=== PATIENT | male | born 1940 | race Caucasian/White ===

== ENCOUNTER 2016-11-11 11:15 | Inpatient (IN) | payer BC, OTHER ==
[~2016-11-11] VITALS: Ht 172.7 cm; Wt 68.0 kg
[2016-11-11] MEDS ORDERED: SODIUM CHLORIDE 0.9% 1000ML 1,000 ML IV STA (11:48)
[2016-11-11 12:00] LABS: BASO % 0.5 %; BASO ABS # 0.03 K/uL (0-0.2); COMPLETE YES; HEMATOCRIT 37.6 % (42-52); IG% 0.2 %; LYMPH % 19.5 %; LYMPH ABS # 1.17 K/uL (1.2-3.4); MEAN CELL VOLUME 88.9 fL (80-100); MEAN CORPUSCULAR HGB CONC 34.8 g/dl (32-36); MEAN PLATELET VOLUME 10.7 fL (7.4-10.4); MONO % 4.7 %; NEUT % 71.1 %; PLATELET COUNT 131 K/uL (130-400); RED BLOOD COUNT 4.23 M/uL (4.7-6.1); WHITE BLOOD COUNT 5.99 K/uL (4.8-10.8)
[2016-11-11] MEDS ORDERED: NITROGLYCERIN OINT 2% 1GM PACKET EXT ONE (12:00)
[2016-11-11 12:06] LABS: PROTHROMBIN TIME (PATIENT) 11.2 SECONDS (9.0-12.0)
--- NOTE | 2016-11-11 12:15 | EMERGENCY ROOM VISIT NOTE ---
ED Visit Note First contact with patient: 11:37 This Patient was discussed with the physician miner assistant, Ron Bello PA-C. The pertinent historical and physical exam findings were confirmed. I agree with the studies ordered and with the interpretations of these studies. I agree with the disposition and care plan.
[2016-11-11 12:17] LABS: ALT/SGPT 14 U/L (12-78); BLOOD UREA NITROGEN 23 mg/dl (7-18); BUN/CREATININE RATIO 16.2 (10-20); CALCIUM 9.1 mg/dl (8.5-10.1); CARBON DIOXIDE 28 mmol/L (21-32); CHLORIDE 105 mmol/L (98-107); GLUCOSE 96 mg/dl (70-99); MAGNESIUM 2.2 mg/dl (1.8-2.4); SODIUM 141 mmol/L (136-145)
--- NOTE | 2016-11-11 12:19 | DIAGNOSTIC IMAGING REPORT ---
CHEST ONE VIEW PORTABLE CLINICAL HISTORY: cp dyspnea COMPARISON STUDY: No previous studies for comparison. FINDINGS: The bones soft tissues and hemidiaphragms are normal. The cardiomediastinal silhouette is normal. The lungs are clear. The pulmonary vasculature is normal. IMPRESSION: Negative chest. Electronically signed by: Bridger Rosas M.D. 11/11/2016 12:18 PM Dictated Date/Time: 11/11/2016 12:16 PM
[2016-11-11 12:27] LABS: ALB/GLOB RATIO 1.2 (0.9-2); ALKALINE PHOSPHATASE 68 U/L (45-117); AST/SGOT 19 U/L (15-37); CKMB/CK RATIO 1.5 (0-3.0)
[2016-11-11] MEDS ORDERED: AMLO10TA2 PO (12:28)
[2016-11-11] MEDS ORDERED: CITA40TA12 PO (12:28)
[2016-11-11] MEDS ORDERED: CHOL100010 PO (12:28)
[2016-11-11] MEDS ORDERED: TRAV0.00 OP (12:29)
[2016-11-11] MEDS ORDERED: MoRPHine SULFATE 2 MG/ML CARP IV PRN (14:15)
[2016-11-11] MEDS ORDERED: NITROGLYCERIN 0.4 MG SL PER TAB CHARGE SL PRN (14:15)
[2016-11-11] MEDS ORDERED: ALUMINUM/MAGNESIUM/SIMETH (MAALOX MAX) 30 ML UDC PO PRN (14:15)
[2016-11-11] MEDS ORDERED: ACETAMINOPHEN 325 MG TAB PO PRN (14:15)
[2016-11-11] MEDS ORDERED: MAGNESIUM HYDROXIDE SUSP 30 ML UDC PO PRN (14:15)
[2016-11-11] MEDS ORDERED: POLYETHYLENE (MIRALAX) 17 GM PACK PO PRN (14:15)
[2016-11-11] MEDS ORDERED: ZOLPIDEM TARTRATE 5 MG TAB PO PRN (14:15)
--- NOTE | 2016-11-11 14:53 | History and Physical ---
History & Physical Date & Time of Service: Nov 11, 2016 at 14:42 Chief Complaint: Chest Pains X 1 Hour Primary Care Physician: Kee Linton M.D. History of Present Illness Source: patient, family 76 years old man with PMHx of HTN. he was in his regular state of health until today 10 am. he came from post office and suddenly developed substernal chest pain referred to the left associated with SOB and diaphoresis. denies any palpitation. pain was dull aching /10. partially improved after his gave him an aspirin. he then presented to Ed and received Nitropaste. currently he is cp free. him and his just came back driving yesterday from [place]. they stayed there for a week. denies any calf tenderness or lower Ext swelling never smoked before no family Hx of heart disease Past Medical/Surgical History Chest pain R/O ACS HTN MAYNOR (creatinine of 1.4, base line is unknown) Social History Smoking Status: Never Smoker Marital Status: Housing status: lives with family Occupational Status: retired Multi-Drug Resistant Organisms History of MDRO: No Allergies Coded Allergies: No Known Allergies (Verified , 11/11/16) Home Medications Scheduled Amlodipine Besylate (Norvasc), 10 MG PO DAILY Cholecalciferol (Vitamin D), 1,000 UNITS PO DAILY Citalopram Hydrobromide (Celexa), 20 MG PO QAM Travoprost (Travatan Z), 1 DROPS OP HS Review of Systems Constitutional: No chills, No fatigue, No fever, No problem reported, No sweats , No weakness, No weight loss Eyes: No diplopia, No discharge, No eye pain, No problem reported, No redness, No worsening of vision ENT: No dental problems, No hearing loss, No nasal symptoms, No problem reported, No sore throat, No tinnitus, No trouble swallowing, No unusual epistaxis Respiratory: + shortness of breath, No cough, No sputum, No wheezing Cardiovascular: + chest pain, No edema, No palpitations Abdomen: No GI bleeding, No constipation, No diarrhea, No nausea, No pain, No problem reported, No vomiting Musculoskeletal: No calf pain, No joint pain, No muscle pain, No problem reported, No swelling Genitourinary - Male: No dysuria, No hematuria, No impotence, No lesions, No penile discharge, No problem reported, No urinary frequency, No urinary hesitancy, No urinary incontinence, No urinary retention, No urinary urgency Neurologic: No balance problems, No memory loss, No numbness/tingling, No paralysis, No problem reported, No vertigo, No weakness Psychiatric: No anhedonism, No anxiety, No depression symptoms, No insomnia, No problem reported, No substance abuse Endocrine: No excessive thirst, No excessive urination, No fatigue, No problem reported Hematologic / Lymphatic: No abnormal bleeding/bruising, No clotting problems, No night sweats, No problem reported, No swollen lymph nodes Allergic / Immunologic: No environmental allergies, No food allergies, No frequent infections, No hives, No pet sensitivities, No poor healing, No problem reported, No prolonged convalescence, No seasonal allergies Physical Exam Vital Signs Date Time Temp Pulse Resp B/P Pulse Ox O2 Delivery O2 Flow Rate FiO2 11/11/16 14:30 59 18 136/79 95 Room Air 11/11/16 13:08 59 18 144/81 95 Room Air 11/11/16 12:28 59 18 152/81 99 Room Air 11/11/16 12:01 58 20 155/79 99 Room Air 11/11/16 11:49 58 20 169/97 100 Room Air 11/11/16 11:49 100 Room Air 11/11/16 11:21 36.5 78 20 156/74 100 Room Air General Appearance: no apparent distress Head: normocephalic, atraumatic Eyes: normal inspection, EOMI ENT: normal ENT inspection, hearing grossly normal Neck: supple Respiratory/Chest: chest non-tender, lungs clear, normal breath sounds, no respiratory distress, no accessory muscle use Cardiovascular: regular rate, rhythm, no edema, no gallop, no murmur Abdomen/GI: normal bowel sounds, non tender, soft, no organomegaly, no pulsatile mass, normal rectal exam Back: normal inspection, no CVA tenderness, no muscle spasm, normal range of motion Extremities/Musculoskelatal: normal inspection, no calf tenderness, normal capillary refill, no pedal edema 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, no motor/sensory deficits, alert, normal mood/affect, normal reflexes, oriented x 3 Skin: normal color, warm/dry, no rash Diagnostics Laboratory Results Results Past 24 Hours Test 11/11/16 11:45 Range/Units White Blood Count 5.99 4.8-10.8 K/uL Red Blood Count 4.23 4.7-6.1 M/uL Hemoglobin 13.1 14.0-18.0 g/dL Hematocrit 37.6 42-52 % Mean Corpuscular Volume 88.9 80-100 fL Mean Corpuscular Hemoglobin 31.0 25-34 pg Mean Corpuscular Hemoglobin Concent 34.8 32-36 g/dl Platelet Count 131 130-400 K/uL Mean Platelet Volume 10.7 7.4-10.4 fL Neutrophils (%) (Auto) 71.1 % Lymphocytes (%) (Auto) 19.5 % Monocytes (%) (Auto) 4.7 % Eosinophils (%) (Auto) 4.0 % Basophils (%) (Auto) 0.5 % Neutrophils # (Auto) 4.26 1.4-6.5 K/uL Lymphocytes # (Auto) 1.17 1.2-3.4 K/uL Monocytes # (Auto) 0.28 0.11-0.59 K/uL Eosinophils # (Auto) 0.24 0-0.5 K/uL Basophils # (Auto) 0.03 0-0.2 K/uL RDW Standard Deviation 41.4 36.4-46.3 fL RDW Coefficient of Variation 12.8 11.5-14.5 % Immature Granulocyte % (Auto) 0.2 % Immature Granulocyte # (Auto) 0.01 0.00-0.02 K/uL Prothrombin Time 11.2 9.0-12.0 SECONDS Prothromb Time International Ratio 1.0 0.9-1.1 Activated Partial Thromboplast Time 26.4 21.0-31.0 SECONDS Partial Thromboplastin Ratio 1.0 D-Dimer 420 0-500 ug/L FEU Sodium Level 141 136-145 mmol/L Potassium Level 4.0 3.5-5.1 mmol/L Chloride Level 105 98-107 mmol/L Carbon Dioxide Level 28 21-32 mmol/L Anion Gap 8.0 3-11 mmol/L Blood Urea Nitrogen 23 7-18 mg/dl Creatinine 1.40 0.60-1.40 mg/dl Est Creatinine Clear Calc Drug Dose 44.7 ml/min Estimated GFR () 57.0 Estimated GFR (Non- 49.1 BUN/Creatinine Ratio 16.2 10-20 Random Glucose 96 70-99 mg/dl Calcium Level 9.1 8.5-10.1 mg/dl Magnesium Level 2.2 1.8-2.4 mg/dl Total Bilirubin 0.5 0.2-1 mg/dl Aspartate Amino Transf (AST/SGOT) 19 15-37 U/L Alanine Aminotransferase (ALT/SGPT) 14 12-78 U/L Alkaline Phosphatase 68 45-117 U/L Total Creatine Kinase 155 39-308 U/L Creatine Kinase MB 2.3 0.5-3.6 ng/ml Creatine Kinase MB Ratio 1.5 0-3.0 Troponin I < 0.015 0-0.045 ng/ml Total Protein 7.1 6.4-8.2 gm/dl Albumin 3.9 3.4-5.0 gm/dl Globulin 3.2 2.5-4.0 gm/dl Albumin/Globulin Ratio 1.2 0.9-2 Lipase 293 73-393 U/L Thyroid Stimulating Hormone (TSH) 1.200 0.300-4.500 uIu/ml Impression Assessment and Plan 76 years old man with no significant Pmhx except for htn, presented today with acute onset cp and sob, he returned driving from [place] yesterday chest pain -serial cardiac enz -aspirin/NTG -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 Y/N: Yes Risk Level: Moderate
[2016-11-11] MEDS ORDERED: IV FLUIDS COMPLETED PRN (15:15)
[2016-11-11 15:57] VITALS: BP 133/71; PULSE 53; TEMP 36.3; O2SAT 96; Ht 172.7 cm; Wt 68.0 kg
[2016-11-11 16:00] VITALS: O2SAT 96
[2016-11-11] MEDS: SODIUM CHLORIDE 0.9% 1000ML 1,000 ML IV SCH (17:45)
[2016-11-11] MEDS: NITROGLYCERIN OINT 2% 1GM PACKET EXT SCH (18:46)
[2016-11-11 21:39] LABS: URINE APPEARANCE CLEAR (CLEAR); URINE BILIRUBIN NEG (NEG); URINE COLOR YELLOW; URINE NITRITE NEG (NEG); URINE SPECIFIC GRAVITY 1.017 (1.000-1.030); UROBILINOGEN NEG (NEG); ZZUR CULT IF INDIC CLEAN CATCH NO
[2016-11-11 21:43] LABS: MANUAL MICROSCOPIC REQUIRED? NO; REVIEW REQ? NO
[2016-11-11] MEDS ORDERED: HEPARIN SOD 5000 UNIT/0.5 ML CARP SQ SCH (22:00)
[2016-11-11] MEDS ORDERED: HEPARIN IV BOLUS 5,000 UNIT in SYRINGE 0 ML IV ONE (23:45)
[2016-11-11 23:46] VITALS: BP 114/65; PULSE 57; TEMP 36.9; O2SAT 96
[2016-11-12] VITALS (8 sets, daily range): BP systolic 123–139; BP diastolic 58–88; PULSE 52–66; TEMP 36.4–36.9; O2SAT 96–97
[2016-11-12] MEDS: NITROGLYCERIN OINT 2% 1GM PACKET EXT SCH ×3 (00:01→12:13)
[2016-11-12] MEDS: HEPARIN 25,000 UNIT/500ML D5W 500 ML IV PRN ×2 (00:01→08:48)
[2016-11-12] MEDS: SODIUM CHLORIDE 0.9% 1000ML 1,000 ML IV SCH ×3 (05:48→19:48)
[2016-11-12 07:16] LABS: ESTIMATED AVERAGE GLUCOSE 100 mg/dl; HA1C FLAG Normal (Normal)
[2016-11-12 07:29] LABS: PARTIAL THROMBOPLASTIN RATIO 3.7
[2016-11-12 07:43] LABS: CHOLESTEROL/HDL RATIO 2.4
[2016-11-12] MEDS: ASPIRIN 325 MG ECTAB PO SCH (08:41)
--- NOTE | 2016-11-12 09:49 | Cardiology Consultation ---
Cardiology Consultation Date of Consultation: Nov 12, 2016. Requesting Physician: Dr. Adler Attending Physician: Dr. Ramirez Reason for Consultation: Chest pain Pt evaluation today including: conversation w/ patient, conversation w/ family , physical exam, chart review, lab review, review of studies, review of inpatient medication list, conversation w/ attending History of Present Illness Mr. Alexander is a 76-year-old male with a history of hypertension who presented to the ED yesterday with complaints of chest pain. He reports that [place], and he got back to his house and walked up the 13 steps to get into his house. He then developed a dull, left-sided chest discomfort which radiated into his upper back. He had associated shortness of breath with the discomfort but no nausea, vomiting, palpitations, or diaphoresis. His gave him and aspirin and he laid down on the couch. His pain subsided about 10-20% with this, but continued, so they decided to go to the Emergency Department. He was given nitro paste there, and his pain completely resolved within 1-2 hours of being in the ED. He reports that it lasted about 3-4 hours altogether. He has not had a recurrence of the chest pain since then. He reports that prior to yesterday, he was very active and healthy. He and his just drove back from [place] where they vacationed for a week. He walks a couple of miles daily and frequently does stairs with no limiting cardiopulmonary symptoms. He denies orthopnea, PND, edema, lightheadedness, dizziness, syncope, presyncope, abnormal bleeding, cerebrovascular symptoms, coughing, wheezing, or GI/ symptoms. Review of Systems: As noted in HPI. All other 10 point ROS otherwise negative. Family History Mother at the age 56 from "presumed heart problems." Social History Smoking Status: Never Smoker History of Alcohol Use: Yes (OCCASIONAL) He is . He and his have a son, a daughter, and 4 grandsons. He is retired from [employer]. He denies smoking history or tobacco use. He notes occasional alcohol use. He denies any drug use. Allergies Coded Allergies: No Known Allergies (Verified , 11/11/16) Medications Current Inpatient Medications Medications (Trade) Dose Ordered Sig/Eri Route Start Time Stop Time Status Last Admin Dose Admin Sodium Chloride (Nss 1000ml) 1,000 ml @ 80 mls/hr [id number] IV 11/11/16 17:15 12/11/16 17:14 11/12/16 05:48 80 MLS/HR Acetaminophen (Tylenol Tab) 650 mg Q4H PRN PO 11/11/16 14:15 12/11/16 14:14 Al Hydrox/Mg Hydrox/Simethicone (Maalox Max Susp) 15 ml Q4H PRN PO 11/11/16 14:15 12/11/16 14:14 Magnesium Hydroxide (Milk Of Magnesia Susp) 30 ml Q12H PRN PO 11/11/16 14:15 12/11/16 14:14 Zolpidem Tartrate (Ambien Tab) 5 mg HSZ PRN PO 11/11/16 14:15 12/11/16 14:14 Nitroglycerin (Nitrostat Tab) 0.4 mg UD PRN SL 11/11/16 14:15 12/11/16 14:14 Nitroglycerin (Nitroglycerin 2% Oint) 1 inch Q6@0000,0600,1200,1800 EXT 11/11/16 18:00 12/11/16 17:59 11/12/16 05:48 1 INCH Morphine Sulfate (MoRPHine SULFATE INJ) 2 mg Q30M PRN IV 11/11/16 14:15 11/25/16 14:14 Aspirin (Ecotrin Tab) 325 mg QAM PO 11/12/16 09:00 12/12/16 08:59 11/12/16 08:41 325 MG Polyethylene (Miralax Powder Packet) 17 gm DAILY PRN PO 11/11/16 14:15 12/11/16 14:14 Miscellaneous 1 ea 1 ea PRN PRN N/A 11/11/16 15:15 11/11/17 15:14 Heparin Sodium/ Dextrose (Heparin 25,000 Unit/500ml D5W) 500 ml @ 22 mls/hr [id number] PRN IV 11/11/16 23:45 12/11/16 23:44 11/12/16 08:48 22 MLS/HR Physical Exam Vital Signs Past 12 Hours Date Time Temp Pulse Resp B/P Pulse Ox O2 Delivery O2 Flow Rate FiO2 11/12/16 07:55 Room Air 11/12/16 07:32 36.7 54 16 123/88 96 Room Air 11/12/16 05:46 36.4 54 16 128/58 96 Room Air 11/12/16 05:18 Room Air 11/12/16 00:00 Room Air 11/11/16 23:46 36.9 57 18 114/65 96 Room Air Constitutional: Alert, oriented, in no acute distress HEENT: Head is atraumatic and normocephalic. EOMs intact. Sclera anicteric. Face is symmetric. No perioral cyanosis. Mucous membranes moist. Neck: Supple, no JVD, no carotid bruits Pulmonary: Normal respiratory effort, clear to auscultation bilaterally Cardiac: Regular rate and rhythm, normal S1 and S2, no gallops, no rubs, no murmurs Extremities: No clubbing, cyanosis, or edema. Pulses 2+ and symmetric Abdomen: Normal bowel sounds, soft, non-tender, no abdominal mass palpated Skin: Normal skin color, turgor, and pigmentation, no rash, no skin lesions Neurological: Oriented to person, place, and time Data Laboratory Results: Last 24 Hours Test 11/11/16 11:45 11/11/16 20:27 11/11/16 21:25 11/12/16 03:13 White Blood Count 5.99 K/uL Red Blood Count 4.23 M/uL Hemoglobin 13.1 g/dL Hematocrit 37.6 % Mean Corpuscular Volume 88.9 fL Mean Corpuscular Hemoglobin 31.0 pg Mean Corpuscular Hemoglobin Concent 34.8 g/dl Platelet Count 131 K/uL Mean Platelet Volume 10.7 fL Neutrophils (%) (Auto) 71.1 % Lymphocytes (%) (Auto) 19.5 % Monocytes (%) (Auto) 4.7 % Eosinophils (%) (Auto) 4.0 % Basophils (%) (Auto) 0.5 % Neutrophils # (Auto) 4.26 K/uL Lymphocytes # (Auto) 1.17 K/uL Monocytes # (Auto) 0.28 K/uL Eosinophils # (Auto) 0.24 K/uL Basophils # (Auto) 0.03 K/uL RDW Standard Deviation 41.4 fL RDW Coefficient of Variation 12.8 % Immature Granulocyte % (Auto) 0.2 % Immature Granulocyte # (Auto) 0.01 K/uL Prothrombin Time 11.2 SECONDS Prothromb Time International Ratio 1.0 Activated Partial Thromboplast Time 26.4 SECONDS Partial Thromboplastin Ratio 1.0 D-Dimer 420 ug/L FEU Sodium Level 141 mmol/L Potassium Level 4.0 mmol/L Chloride Level 105 mmol/L Carbon Dioxide Level 28 mmol/L Anion Gap 8.0 mmol/L Blood Urea Nitrogen 23 mg/dl Creatinine 1.40 mg/dl Est Creatinine Clear Calc Drug Dose 44.7 ml/min Estimated GFR () 57.0 Estimated GFR (Non- 49.1 BUN/Creatinine Ratio 16.2 Random Glucose 96 mg/dl Calcium Level 9.1 mg/dl Magnesium Level 2.2 mg/dl Total Bilirubin 0.5 mg/dl Aspartate Amino Transf (AST/SGOT) 19 U/L Alanine Aminotransferase (ALT/SGPT) 14 U/L Alkaline Phosphatase 68 U/L Total Creatine Kinase 155 U/L 143 U/L 149 U/L Creatine Kinase MB 2.3 ng/ml Creatine Kinase MB Ratio 1.5 Troponin I < 0.015 ng/ml 0.509 ng/ml 1.450 ng/ml Total Protein 7.1 gm/dl Albumin 3.9 gm/dl Globulin 3.2 gm/dl Albumin/Globulin Ratio 1.2 Lipase 293 U/L Thyroid Stimulating Hormone (TSH) 1.200 uIu/ml Urine Color YELLOW Urine Appearance CLEAR Urine pH 7.0 Urine Specific [place] 1.017 Urine Protein NEG Urine Glucose (UA) NEG Urine Ketones NEG Urine Occult Blood NEG Urine Nitrite NEG Urine Bilirubin NEG Urine Urobilinogen NEG Urine Leukocyte Esterase NEG Test 11/12/16 06:55 11/12/16 08:10 Activated Partial Thromboplast Time 96.6 SECONDS Partial Thromboplastin Ratio 3.7 Estimated Average Glucose 100 mg/dl Hemoglobin A1c 5.1 % Triglycerides Level 44 mg/dl Cholesterol Level 166 mg/dl HDL Cholesterol 70 mg/dl LDL Cholesterol, Calculated 87 mg/dl VLDL Cholesterol, Calculated 9 mg/dl Cholesterol/HDL Ratio 2.4 Total Creatine Kinase 154 U/L Troponin I 1.290 ng/ml CXR: Negative chest. Initial ECG with sinus bradycardia at 56 bpm. Repeat ECG with sinus bradycardia at 58 bpm with premature atrial complexes. Nonspecific ST abnormality. Telemetry reviewed: Sinus bradycardia in 50's. PAC's. Assessment & Plan Mr. Alexander is a 76-year-old male with no known cardiac history but with a history of hypertension who presented to the ED yesterday with complaints of chest pain. His initial Troponin was undetectable, however, it has russell to a peak of 1.450. ECG shows nonspecific ST abnormality. He is currently chest pain free. He has already been started on a Heparin drip and has been given aspirin and nitro. Would also recommend a beta rani, however, he has been bradycardic with rates in the 50's throughout admission, therefore would not initiate at this time. Given his symptoms and Troponin elevation, a cardiac catheterization is recommended for further evaluation of his coronary anatomy. This will likely be done later today by Dr. Ramirez who will also be in to see the patient. CAD risk factors include hypertension. He denies history of diabetes mellitus or dyslipidemia. His mother in her 50s suddenly. He thinks she may have had rheumatic valvular heart disease. He does not smoke cigarettes. Thank you for allowing us to see this patient in consultation. The patient was seen and examined by me in conjunction with . no prior history of coronary artery disease. Recently no anginal or anginal type symptoms until sudden onset of dull chest discomfort yesterday. Total duration approximately 3 hours. It then resolved in the emergency department. No chest discomfort since admission. He has not noted any recent decrease in excess exercise tolerance or stamina. No dyspnea with his normal activities. No symptoms of arrhythmia. No symptoms of congestive heart failure. No cerebrovascular or peripheral vascular complaints. No bleeding complaints. Exam reveals him to be in no distress. Neck: No jugular venous distention. Carotids 2/2 bilaterally. Normal upstroke. No bruits. Mouth: Uvula visible. Full dentures. Lungs: Normal respiratory effort. Clear. No rales or wheezes. Heart: Regular rate and rhythm. No murmur, gallop, rub. Abdomen: Soft. Nontender. No palpable masses organomegaly. Extremities: No pretibial edema. No cyanosis or clubbing. Pulses: Distal pulses all extremities strongly palpable. Neurologic: Alert and oriented x3. Motor grossly intact. Psychiatric: Affect is normal. the electrocardiogram revealed no ST or T-wave abnormalities diagnostic of myocardial ischemia or injury. Troponin I elevated as documented above. The patient has sustained a non ST elevation myocardial infarction. cardiac catheterization is indicated to assess for presence of significant underlying coronary artery disease. The procedure, risks, benefits, and alternatives of cardiac catheterization and coronary intervention were extensively discussed with the patient and his . He agrees to have the procedure performed. We will utilize a right radial arterial access. Addendum: The cardiac catheterization was performed via a 6 Arabic sheath in the right radial artery. This revealed a right dominant circulation. The left main had minor irregularities. The proximal LAD had a 30 percent stenosis. Mid LAD with 10-15 percent stenosis. The proximal LAD gave rise to a it is very small caliber bifurcating diagonal artery. The superior branch following the bifurcation had a 90 percent stenosis. The diameter of this vessel on digital angiography was 1 point 5 millimeters. The left circumflex had mild atherosclerotic disease. The right coronary artery was a large caliber vessel. 30 percent proximal and mid RCA stenoses. 30-40 percent distal RCA stenosis. Long small caliber posterior descending artery and extremely long medium large caliber posterior lateral artery. The proximal posterior lateral had a 30 percent stenosis. Left ventricular angiography performed from the 30 degree right anterior oblique projection with a hand injection of contrast dye revealed all LV segments to contract normally. LV ejection fraction approximately 55 percent. Recommendations and plan: 1. Medical therapy for his coronary artery disease at this time. Will start him on statin therapy for acute beneficial effects on endothelial function .continue aspirin. Start clopidogrel 75 milligrams daily for additional antiplatelet effect. Low-dose beta-rani with metoprolol succinate ER 12.5 milligrams daily. This is to help control his exercise heart rate. Discontinue intravenous heparin at this time. Discontinue topical nitrate. Exercise stress test prior to discharge to assess for any exercise-induced arrhythmia is. Also assess for any anginal symptoms. If the patient had anginal symptoms refractory to medical therapy would then consider intervention to the diagonal. However, the diagonal is a very small caliber. It is of smaller diameter than the smallest diameter stent. It is the diameter of the smallest PTCA balloon. As his pain yesterday lasted approximately 3 hours he may have completed the infarct in the distribution of the small diagonal branch. The stress test will be in the form of a stress echocardiogram. The resting echo will further assess left ventricular wall motion. Thank you for asking us to see this patient in Cardiology consultation.
[2016-11-12] MEDS ORDERED: MIDAZOLAM HCL 1 MG/ML 2ML VIAL ONE (12:47)
[2016-11-12] MEDS ORDERED: FENTANYL CITRATE INJ 50 MCG/1 ML 2 ML VIAL ONE (12:47)
[2016-11-12] MEDS ORDERED: HEPARIN SOD (PORCINE) 1000 UNIT/ML 10 ML VIAL ONE (12:47)
[2016-11-12] MEDS ORDERED: NiCARDipine HCL INJ 2.5 MG/ML 10 ML AMP ONE (12:47)
[2016-11-12] MEDS ORDERED: NITROGLYCERIN/D5W 100MCG/ML 20ML SYR ONE (12:48)
--- NOTE | 2016-11-12 12:50 | Procedure Note ---
Pre-Mod Sedation Assessment General Date of Moderate Sedation: Nov 12, 2016. Vital Signs: Vital Signs Past 12 Hours Date Time Temp Pulse Resp B/P Pulse Ox O2 Delivery O2 Flow Rate FiO2 11/12/16 12:05 Room Air 11/12/16 11:28 36.6 55 16 139/71 97 Room Air 11/12/16 07:55 Room Air 11/12/16 07:32 36.7 54 16 123/88 96 Room Air 11/12/16 05:46 36.4 54 16 128/58 96 Room Air 11/12/16 05:18 Room Air Review Cardiovascular: regular rate, rhythm, no edema, no gallop, no JVD, no murmur, normal peripheral pulses Abdomen: normal bowel sounds, non tender, soft, no organomegaly Lungs: lungs clear Pre-Sedation Airway Assessment Oral Cavity: Dentures Able to Visualize Vocal Cords: No Short Thick Neck: No Hx of Sleep Apnea: No Smoking Status: Never Smoker Mallampati Classification: Class III ASA Classification: Class II Procedure Planning Contraindications-for Mod Sed: None Yes Notes The planned sedation has been discussed with the patient and consent obtained. I have identified the patient, determined the appropriateness of sedation and have assessed the patient immediately prior to the procedure. All medicine(s) and interventions are by my order.
[2016-11-12] MEDS ORDERED: SODIUM CHLORIDE 0.9% 1000ML 250 ML IV PRN (13:58)
[2016-11-12] MEDS ORDERED: ATROPINE SULFATE 0.1 MG/ML 5ML SYR IV PRN (14:00)
[2016-11-12] MEDS ORDERED: ONDANSETRON INJ 2 MG/ML 2 ML VIAL IV PRN (14:00)
[2016-11-12] MEDS ORDERED: ACETAMINOPHEN 325 MG TAB PO PRN (14:00)
--- NOTE | 2016-11-12 14:05 | Procedure Note ---
Post-Mod Sedation Assessment General Date of Moderate Sedation Nov 12, 2016. Vital Signs: Vital Signs Past 12 Hours Date Time Temp Pulse Resp B/P Pulse Ox O2 Delivery O2 Flow Rate FiO2 11/12/16 14:00 65 18 113/60 97 Room Air 11/12/16 13:45 56 18 106/73 96 Room Air 11/12/16 13:41 56 18 115/70 96 Room Air 11/12/16 13:36 57 18 106/66 99 Nasal Cannula 3 11/12/16 12:05 Room Air 11/12/16 11:28 36.6 55 16 139/71 97 Room Air 11/12/16 07:55 Room Air 11/12/16 07:32 36.7 54 16 123/88 96 Room Air 11/12/16 05:46 36.4 54 16 128/58 96 Room Air 11/12/16 05:18 Room Air Review - Discharge Criteria Vital Signs Stable: Yes Alert/Oriented/Conversant: Yes Returned to Baseline Mental St: Yes Nausea Absent/Minimal: Yes Pain/Discomfort/Absent/Minimal: Yes Normal/Baseline Respirations: Yes Active Bleeding?: No Pt Received D/C Instructions: N/A Prescriptions Given: None Specific Proced. D/C Criteria Distal Pulses Present (Cardiac: Yes Groin site assessed-Card Cath: N/A Voided Prior To Discharge: N/A Discharged Patients Adult Escort/Transportation: N/A
[2016-11-12] MEDS ORDERED: CLOPIDOGREL BISULFATE 75 MG TAB PO ONE (14:30)
[2016-11-12] MEDS ORDERED: ATORVASTATIN 40 MG TAB PO ONE (14:30)
[2016-11-12] MEDS ORDERED: METOPROLOL SUCC 50MG EXT REL TAB PO ONE (14:30)
--- NOTE | 2016-11-12 15:24 | Cardiac Catheterization ---
Procedure Note Procedure Date Nov 12, 2016. Pre-Procedure Diagnosis Non STEMI AUC Score 8 Post-Procedure Diagnosis Severe CAD (90% proximal stenosis of a branch of a very small caliber bifurcating 1st LAD diagonal artery), Normal LV Systolic Function, Normal Intracardiac Pressures Procedure(s) Performed Coronary Angiography, Left Heart Cath, LV Angiography Gore Stitcher Dr. Ramirez Manager Storage(s) IGNACIO Reddy Estimated Blood Loss 15 ml Medication(s) Fentanyl, Heparin, Nicardipine (Intra-arterial), Versed, Lidocaine 1% Summary of Findings Clinical indications: Non ST elevation myocardial infarction, no evidence of ischemia or infarction on electrocardiogram. CAD risk factors include hypertension. No history of diabetes mellitus, dyslipidemia, or cigarette smoking. No definite family history of premature coronary artery disease. His mother in her 50s. She had rheumatic valvular heart disease. Catheterization site: 6 Austrian slender glide sheath right radial artery. Catheters: 6 Austrian brachial 3.5 and 5 Austrian pigtail catheters. Hemostasis: Terumo TR band. Complications: None. Findings: Fluoroscopy revealed coronary calcifications. The coronary circulation was right dominant. The left main coronary artery was a large caliber vessel giving rise to large caliber left anterior descending and left circumflex coronary arteries. Proximal and distal 10-20 percent stenoses. The proximal LAD had a 30 percent stenosis. The proximal LAD gave rise to a very small caliber bifurcating 1st diagonal artery. The superior branch after the bifurcation had a 90 percent stenosis. The diameter of the superior branch of the diagonal measured by digital angiography was 1.5 millimeters. CATRINA 3 flow. The mid LAD gave rise to small caliber 2nd and 3rd diagonal arteries. Each of these diagonals had ostial 10 percent stenoses. The mid and distal LAD had diffuse mild atherosclerotic disease with 0-10 percent luminal diameter narrowing. The proximal and mid left circumflex coronary artery were normal. The mid circumflex gave rise to a long small caliber 1st marginal artery which had no obstructive disease. The distal left circumflex had 30 percent stenosis. The distal circumflex then gave rise to very small caliber 1st and 2nd posterolateral branches. The right coronary artery was a very large caliber vessel which had a 30 percent proximal stenosis. The mid segment had sequential 30 percent stenoses. The distal RCA prior to the origin of the PDA had a 30-40 percent stenosis. The PDA was a long small caliber vessel which had a 10 percent mid segment stenosis. Following the origin of the PDA distal RCA had 30 percent stenosis. The distal RCA then gave rise to long small caliber 1st and 2nd posterolateral arteries and then to a very long medium caliber 3rd posterolateral artery. These vessels had no obstructive disease. Left ventricular angiography performed from the 30 degree right anterior oblique projection revealed all LV segments to contract normally. The calculated left ventricular ejection fraction was 63 percent. No mitral regurgitation. Plan: The patient's chest pain yesterday lasted approximately 3 hours. It then resolved. Since then he has had no further anginal type symptoms. The infarct related vessel is likely the first LAD diagonal. It is likely that he has completed the infarct in the distribution of this vessel.He remains without any chest pain since admission. He is hemodynamically stable. No arrhythmias. Because of this and because of the very small caliber of the diagonal medical therapy for his coronary artery disease is indicated. Continue aspirin. Will start statin, low-dose metoprolol, and clopidogrel. If he has anginal symptoms despite medical therapy could consider intervention to diagonal. However, the diameter of the diagonal is less than the diameter of the smallest diameter stent available. Thus, would recommend medical management of the LAD diagonal stenosis. Will perform a stress test prior to discharge to assess for any anginal symptoms and to assess for hemodynamic heart rhythm stability with exercise. Hemodynamics Rest Ao: 103/48/72 mm Hg Final Ao: 110/47/73 mm Hg LV: 106/11 mm Hg Recommendations Medical therapy and/or Counseling Specimens None Radiation Exposure (mGy) 872 Contrast (mls) 75 ml Visipaque Fluids (cc crystalloids) 39 Drains none Anesthesia Intravenous Versed and fentanyl. Lidocaine 1 % for local anesthesia. Procedural Complication(s) None Disposition PCU ACC Data Cardiac Status Clinical evaluation leading to the procedure CAD Presntation: Non STEMI Anginal Classification: CCS IV Heart Failure: No Cardiogenic Shock w/in 24Hrs: No Cardiac Arrest w/in 24Hrs: No Imaging studies past 6 months: No Stress studies past 6 months: No Standard Exercise Stress Test: No Stress Echocardiogram: No Stress Testing w/SPECT MPI: No Cardiac CTA: No Coronary Anatomy Dominant: Right Left Main (% Stenosis): Proximal (10-20), Distal (10-20) LAD (% Stenosis): Proximal, Mid (diffuse 0-10), Distal (0-10) D1 (% Stenosis): Mid (90) D2 (% Stenosis): Ostial (10) D3 (% Stenosis): Ostial (10) Circumflex (% Stenosis): Distal (30) OM1 (% Stenosis): Normal L PL1 (% Stenosis): Normal L PL2 (% Stenosis): Normal RCA (% Stenosis): Proximal (30), Mid (30,30), Distal (30-40,30) R PDA (% Stenosis): Mid (10) R PL1 (% Stenosis): Normal R PL2 (% Stenosis): Normal Left Ventricular Angiography EF (%): 63 Wall Motion: Inferior (Normal), Apical (Normal), Anterior (Normal) Mitral Regurgitation: None Diagnostic Physician's Name: Delbert Ramirez M.D. Status: Elective Closure Device Percutaneous Entry Location: Radial Closure Device: Radial Band Recommendations: Medical therapy and/or Counseling
--- NOTE | 2016-11-12 19:24 | Progress Note ---
Subjective Date of Service: Nov 12, 2016. Subjective Pt evaluation today including: conversation w/ patient, conversation w/ family , physical exam, chart review, lab review Review of Systems Constitutional: No chills, No fatigue, No fever, No problem reported, No see HPI, No sweats, No weakness, No weight loss Eyes: No diplopia, No discharge, No eye pain, No problem reported, No redness, No see HPI, No worsening of vision ENT: No dental problems, No hearing loss, No nasal symptoms, No problem reported, No see HPI, No sore throat, No tinnitus, No trouble swallowing, No unusual epistaxis Respiratory: No cough, No dyspnea at rest, No dyspnea on exertion, No hemoptysis, No problem reported, No see HPI, No shortness of breath, No sputum, No wheezing Cardiac: No PND, No chest pain, No claudication, No edema, No orthopnea, No palpitations, No problem reported, No see HPI Abdomen: No GI bleeding, No constipation, No diarrhea, No nausea, No pain, No problem reported, No see HPI, No vomiting Musculoskeletal: No calf pain, No joint pain, No muscle pain, No problem reported, No see HPI, No swelling Neurologic: No balance problems, No memory loss, No numbness/tingling, No paralysis, No problem reported, No see HPI, No vertigo, No weakness Psychiatric: No anhedonism, No anxiety, No depression symptoms, No insomnia, No problem reported, No see HPI, No substance abuse Heme: No abnormal bleeding/bruising, No clotting problems, No night sweats, No problem reported, No see HPI, No swollen lymph nodes Endo: No excessive thirst, No excessive urination, No fatigue, No problem reported, No see HPI Skin: No bleeding, No color change, No itch, No new/changing skin lesions, No problem reported, No rash, No see HPI Medications Current Inpatient Medications Medications (Trade) Dose Ordered Sig/Eri Route Start Time Stop Time Status Last Admin Dose Admin Sodium Chloride (Nss 1000ml) 1,000 ml @ 125 mls/hr Q8H IV 11/11/16 17:15 12/11/16 17:14 11/12/16 16:35 125 MLS/HR Al Hydrox/Mg Hydrox/Simethicone (Maalox Max Susp) 15 ml Q4H PRN PO 11/11/16 14:15 12/11/16 14:14 Magnesium Hydroxide (Milk Of Magnesia Susp) 30 ml Q12H PRN PO 11/11/16 14:15 12/11/16 14:14 Zolpidem Tartrate (Ambien Tab) 5 mg HSZ PRN PO 11/11/16 14:15 12/11/16 14:14 Nitroglycerin (Nitrostat Tab) 0.4 mg UD PRN SL 11/11/16 14:15 12/11/16 14:14 Morphine Sulfate (MoRPHine SULFATE INJ) 2 mg Q30M PRN IV 11/11/16 14:15 11/25/16 14:14 Aspirin (Ecotrin Tab) 325 mg QAM PO 11/12/16 09:00 12/12/16 08:59 11/12/16 08:41 325 MG Polyethylene (Miralax Powder Packet) 17 gm DAILY PRN PO 11/11/16 14:15 12/11/16 14:14 Miscellaneous (Iv Fluids Completed) 1 ea PRN PRN N/A 11/11/16 15:15 11/11/17 15:14 Atorvastatin Calcium (Lipitor Tab) 40 mg QAM PO 11/13/16 09:00 12/13/16 08:59 Clopidogrel Bisulfate (plAVix TAB) 75 mg QAM PO 11/13/16 09:00 12/13/16 08:59 Metoprolol Succinate (Toprol Xl Tab) 12.5 mg QAM PO 11/13/16 09:00 12/13/16 08:59 Acetaminophen 650 mg 650 mg Q4H PRN PO 11/12/16 14:00 12/12/16 13:59 Sodium Chloride (Nss 1000ml) 250 ml @ 999 mls/hr Q16M PRN IV 11/12/16 13:58 12/12/16 13:57 Atropine Sulfate (Atropine Sulfate 0.1MG/Ml Inj) 0.6 mg PRN PRN IV 11/12/16 14:00 12/12/16 13:59 Ondansetron HCl (Zofran Inj) 4 mg Q6H PRN IV 11/12/16 14:00 12/12/16 13:59 Objective Vital Signs Date Time Temp Pulse Resp B/P Pulse Ox O2 Delivery O2 Flow Rate FiO2 2/15/17 17:00 97 Room Air 11/12/16 16:51 66 133/69 11/12/16 16:30 52 131/71 11/12/16 16:15 36.9 52 18 128/65 97 Room Air 11/12/16 15:45 60 18 114/60 96 Room Air 11/12/16 15:30 60 18 118/60 96 Room Air 11/12/16 15:15 58 18 114/64 96 Room Air 11/12/16 15:00 62 18 116/64 97 Room Air 11/12/16 14:45 64 18 118/72 97 Room Air 11/12/16 14:30 67 18 116/68 97 Room Air 11/12/16 14:15 68 18 118/55 97 Room Air 11/12/16 14:00 65 18 113/60 97 Room Air 11/12/16 13:45 56 18 106/73 96 Room Air 11/12/16 13:41 56 18 115/70 96 Room Air 11/12/16 13:36 57 18 106/66 99 Nasal Cannula 3 11/12/16 12:05 Room Air 11/12/16 11:28 36.6 55 16 139/71 97 Room Air 11/12/16 07:55 Room Air 11/12/16 07:32 36.7 54 16 123/88 96 Room Air 11/12/16 05:46 36.4 54 16 128/58 96 Room Air 11/12/16 05:18 Room Air 11/12/16 00:00 Room Air 11/11/16 23:46 36.9 57 18 114/65 96 Room Air 11/11/16 20:00 Room Air Physical Exam General Appearance: WD/WN, no apparent distress Eyes: normal inspection, EOMI ENT: normal ENT inspection, hearing grossly normal Neck: supple Respiratory/Chest: chest non-tender, lungs clear, normal breath sounds, no respiratory distress, no accessory muscle use Cardiovascular: regular rate, rhythm, no edema, no gallop, no JVD, no murmur Abdomen: normal bowel sounds, non tender, soft, no organomegaly, no pulsatile mass Extremities: normal range of motion, non-tender, normal inspection, no pedal edema, no calf tenderness Neurologic/Psychiatric: riveter portable machine II-XII nml as tested, no motor/sensory deficits, alert, normal mood/affect, oriented x 3 Skin: normal color, warm/dry, no rash Laboratory Results Last 24 Hours Test 11/11/16 20:27 11/11/16 21:25 11/12/16 03:13 11/12/16 06:55 Total Creatine Kinase 143 U/L 149 U/L Troponin I 0.509 ng/ml 1.450 ng/ml Urine Color YELLOW Urine Appearance CLEAR Urine pH 7.0 Urine Specific [place] 1.017 Urine Protein NEG Urine Glucose (UA) NEG Urine Ketones NEG Urine Occult Blood NEG Urine Nitrite NEG Urine Bilirubin NEG Urine Urobilinogen NEG Urine Leukocyte Esterase NEG Activated Partial Thromboplast Time 96.6 SECONDS Partial Thromboplastin Ratio 3.7 Estimated Average Glucose 100 mg/dl Hemoglobin A1c 5.1 % Triglycerides Level 44 mg/dl Cholesterol Level 166 mg/dl HDL Cholesterol 70 mg/dl LDL Cholesterol, Calculated 87 mg/dl VLDL Cholesterol, Calculated 9 mg/dl Cholesterol/HDL Ratio 2.4 Test 11/12/16 08:10 11/12/16 13:09 11/12/16 16:15 Total Creatine Kinase 154 U/L 142 U/L Troponin I 1.290 ng/ml 1.260 ng/ml Kaolin Activated Coagulation Time 167 SECONDS Assessment and Plan 76 years old man with no significant Pmhx except for htn, presented today with acute onset cp and sob, he returned driving from [place] yesterday chest pain/ NSTEMI -serial cardiac enz were positive -aspirin/NTG -consult soliciting freight agent appreciated -S/P cardiac cath; very narrow diameter of LAD diagonal, smaller jordan any balloon , Continue aspirin/statin/low-dose metoprolol / clopidogrel. as per Dr. Ramirez If he continues to have anginal symptoms despite medical therapy would consider intervention to diagonal / stress test prior to discharge to assess for any anginal symptoms and to assess for hemodynamic heart rhythm stability with exercise. MAYNOR -generous ivf hydration, follow up renal function HTN continue norvas lipids showed LDL of 87 hgba was 5.11c dvt prophylaxis with heparin sq change status from observation to admission
[2016-11-13 00:06] VITALS: BP 126/65; PULSE 60; TEMP 36.9; O2SAT 95
[2016-11-13] MEDS: SODIUM CHLORIDE 0.9% 1000ML 1,000 ML IV SCH (01:52)
[2016-11-13 04:00] VITALS: BP 129/67; PULSE 52; TEMP 36.7; O2SAT 95
[2016-11-13 07:31] LABS: BASO % 0.5 %; BASO ABS # 0.03 K/uL (0-0.2); COMPLETE YES; EOS % 5.2 %; HEMATOCRIT 33.3 % (42-52); IG% 0.2 %; LYMPH % 23.8 %; LYMPH ABS # 1.52 K/uL (1.2-3.4); MEAN CELL VOLUME 88.1 fL (80-100); MEAN CORPUSCULAR HEMOGLOBIN 30.7 pg (25-34); MEAN CORPUSCULAR HGB CONC 34.8 g/dl (32-36); MEAN PLATELET VOLUME 10.9 fL (7.4-10.4); MONO % 6.1 %; NEUT % 64.2 %; PLATELET COUNT 130 K/uL (130-400); RED BLOOD COUNT 3.78 M/uL (4.7-6.1); WHITE BLOOD COUNT 6.38 K/uL (4.8-10.8)
[2016-11-13 07:53] LABS: BUN/CREATININE RATIO 12.7 (10-20); CALCIUM 8.6 mg/dl (8.5-10.1); CREATININE 1.3 mg/dl (0.60-1.40); MAGNESIUM 2.1 mg/dl (1.8-2.4); POTASSIUM 4.2 mmol/L (3.5-5.1)
[2016-11-13 07:56] LABS: ALB/GLOB RATIO 1.1 (0.9-2); PHOSPHORUS 2.7 mg/dl (2.5-4.9)
[2016-11-13] MEDS: ASPIRIN 325 MG ECTAB PO SCH (08:14)
[2016-11-13 08:17] VITALS: BP 106/59; PULSE 61; TEMP 36.6; O2SAT 96
[2016-11-13] MEDS ORDERED: CLOPIDOGREL BISULFATE 75 MG TAB PO SCH (09:00)
[2016-11-13] MEDS ORDERED: ATORVASTATIN 40 MG TAB PO SCH (09:00)
[2016-11-13] MEDS ORDERED: METOPROLOL SUCC 25MG EXT REL TAB PO SCH (09:00)
[2016-11-13] MEDS ORDERED: PLV75 PO (10:34)
[2016-11-13] MEDS ORDERED: NTRSLP4 SL (10:34)
[2016-11-13] MEDS ORDERED: TPRSR25 PO (10:34)
[2016-11-13] MEDS ORDERED: ASPEC325 PO (10:34)
[2016-11-13] MEDS ORDERED: LPT40 PO (10:34)
--- NOTE | 2016-11-13 10:38 | Discharge Instructions ---
Discharge Instructions Admission Admission Date: Nov 12, 2016 at 19:24 Admission Diagnosis: Chest Pain. Care Plan - Goal(s): Improve function Care Plan - Instructions: Activity Recommendations: no limitations Recommended Home Diet: [address] Wt Reduction * Call 911 or immediately go to the Hospital Emergency Department nearest your location if you feel you have an emergent problem. Inpt VTE Proph given/why not?: Unfractionated heparin SQ Laboratory Results Test Results: Hemoglobin A1c Test 11/12/16 06:55 Range/Units Estimated Average Glucose 100 mg/dl Hemoglobin A1c 5.1 4.5-5.6 % Lipid Panel Test 11/12/16 06:55 Range/Units Triglycerides Level 44 0-150 mg/dl Cholesterol Level 166 0-200 mg/dl HDL Cholesterol 70 mg/dl Cholesterol/HDL Ratio 2.4 LDL Cholesterol, Calculated 87 mg/dl Garcia Fischer Recommendations: Call your doctor if: * Temperature above 101 degrees * Pain not relieved by pain medicine ordered * There is increased drainage or redness from any incision * You have any unanswered questions or concerns. Your Doctors Instructions noted above were prepared by provider Donny Ken.
--- NOTE | 2016-11-13 10:54 | Discharge Summary ---
Discharge Summary Admission Date: Nov 12, 2016 at 19:24 Discharge Date: Nov 13, 2016 Discharge Disposition: Home Problems/Secondary Diagnoses: chest pain/ NSTEMI CKD stage 2 HTN Medication Reconciliation New Medications: Aspirin (Aspirin) 325 Mg Ectab 325 MG PO QAM for 30 Days, #30 Atorvastatin (Atorvastatin Calcium) 40 Mg Tab 40 MG PO QAM for 30 Days, #30 TAB 1 Refill Clopidogrel Bisulfate (Clopidogrel) 75 Mg Tab 75 MG PO QAM for 30 Days, #30 TAB 1 Refill Metoprolol Succinate (Metoprolol Succinate ER) 25 Mg Tabcr 12.5 MG PO QAM for 30 Days, #15 TAB 1 Refill Nitroglycerin (Nitrostat) 0.4 Mg/1 Tab Subl 0.4 MG SL UD PRN for Chest Pain for 30 Days, #25 TAB Continued Medications: Cholecalciferol (Vitamin D) 1,000 Unit Tab 1000 UNITS PO DAILY Citalopram Hydrobromide (Celexa) 40 Mg Tab 20 MG PO QAM, TAB Travoprost (Travatan Z) 0.004 % Suhas 1 DROPS OP HS Discontinued Medications: Amlodipine Besylate (Norvasc) 10 Mg Tab 10 MG PO DAILY, TAB Referrals At Discharge Follow up Referrals: Floor Specialist Referral - Within 1-2 Weeks with Delbert Ramirez M.D. Discharge Exam Review of Systems: Constitutional: No chills, No fatigue, No fever, No problem reported, No sweats, No weakness, No weight loss Eyes: No diplopia, No discharge, No eye pain, No problem reported, No redness, No worsening of vision ENT: No dental problems, No hearing loss, No nasal symptoms, No problem reported, No sore throat, No tinnitus, No trouble swallowing, No unusual epistaxis Respiratory: No cough, No dyspnea at rest, No dyspnea on exertion, No hemoptysis, No problem reported, No shortness of breath, No sputum, No wheezing Cardiovascular: No PND, No chest pain, No claudication, No edema, No orthopnea, No palpitations, No problem reported Abdomen: No GI bleeding, No constipation, No diarrhea, No nausea, No pain, No problem reported, No vomiting Musculoskeletal: No calf pain, No joint pain, No muscle pain, No problem reported, No swelling Genitourinary - Female: No dysmenorrhea, No dysuria, No hematuria, No menorrhagia, No metrorrhagia, No , No problem reported, No rash, No urinary frequency, No urinary incontinence, No urinary retention, No urinary urgency, No vaginal bleeding, No vaginal discharge, No vaginal itching, No vulvodynia Genitourinary - Male: No dysuria, No hematuria, No impotence, No lesions, No penile discharge, No problem reported, No urinary frequency, No urinary hesitancy, No urinary incontinence, No urinary retention, No urinary urgency Neurologic: No balance problems, No memory loss, No numbness/tingling, No paralysis, No problem reported, No vertigo, No weakness Psychiatric: No anhedonism, No anxiety, No depression symptoms, No insomnia , No problem reported, No substance abuse Endocrine: No excessive thirst, No excessive urination, No fatigue, No problem reported Hematologic / Lymphatic: No abnormal bleeding/bruising, No clotting problems , No night sweats, No problem reported, No swollen lymph nodes Integumentary: No bleeding, No color change, No itch, No new/changing skin lesions, No problem reported, No rash Hospital Course 76 years old man with no significant Pmhx except for htn, presented today with acute onset cp and sob, he returned driving from [place] yesterday he was found to have the following problems chest pain/ NSTEMI -serial cardiac enz were positive -he was started on aspirin/NTG/ heparin drip -consult student officer appreciated, Dr. Ramirez took him to cardiac cath -S/P cardiac cath; very narrow diameter of LAD diagonal, smaller jordan any balloon , Continue aspirin/statin/low-dose metoprolol / clopidogrel. as per Dr. Ramirez If he continues to have anginal symptoms despite medical therapy would consider intervention to diagonal / stress test in one week after discharge to assess for any anginal symptoms and to assess for hemodynamic heart rhythm stability with exercise. - the morning of discharge he had one episode of sinus tach 150/min for 8 seconds, and heart rate appropiately went up when he was speed walking. currently due to the intitiation of toprolol 12.5mg po daily his hear rate is around 50-60 CKD stage 2 , creatinine remained stable after cardiac cath, today is 1.3 s/p generous ivf hydration HTN Dis[facility] XL lipids showed LDL of 87, lipitor was started any way hgba was 5.11c He is stable today for discharge and will follow up with student officer for a stress test as an out patient This includes examination of the patient, discharge planning, medication reconciliation, and communication with other providers. Discharge Instructions Please refer to the electronic Patient Visit Report (Discharge Instructions) for additional information.
[2016-11-13 11:17] VITALS: BP 106/59; PULSE 61; TEMP 36.6; O2SAT 96
--- NOTE | 2016-11-14 14:17 | EMERGENCY ROOM VISIT NOTE ---
History First contact with patient: 11:37 Chief Complaint: CHEST PAIN Stated Complaint: CHEST PAIN Nursing Triage Summary: triage note: Patient reports chest pain for approx two hours states he developed the pain [place] the [place]. Patient denies any radiation, diaphoresis but does c/o shortness of breath. Denies any cardiac history. History of Present Illness The patient is a 76 year old male who presents to the Emergency Department for evaluation of his chest pain. The patient reports that after getting the mail today, he ambulated to the top of the steps at his house and noticed that he was having some shortness of breath and mild discomfort and central portion of his chest. He reports that he sat down, but the pain did not subside. He initially rated his pain an 8/10. He did lay down, but reports the symptoms were barely alleviated. He did take 325 mg aspirin orally. After approximately 10-15 minutes, he reports that he had a decrease in symptoms by about 70-80%. The patient complains of pain to the central portion of his chest with radiation to the LEFT sided chest. He has never experienced similar symptoms previously. The patient does report a history of hypertension which is treated with amlodipine alone. The patient has never had a stress test. He reports that his most recent EKG was within the past year and thought to be unremarkable. The patient and his recently returned yesterday from a weeklong trip to [place] reviewed they drove to and from. He was having no symptoms of chest pain or shortness of breath prior to this. There is been no leg swelling. There is no family history of blood clots or bleeding disorders. The patient has no smoking history. The patient rates his current discomfort as a 6/10. He denies any headaches, dizziness, lightheadedness, palpitations, nausea, back pain, abdominal pain, or numbness/weakness to the extremities. Review of Systems A complete 10-point Review of Systems was discussed with the patient, with pertinent positives and negatives listed in the History of Present Illness. All remaining Review of Systems questions can be considered negative unless otherwise specified. Past Medical/Surgical History Medical Problems: (1) Chest pain (2) NSTEMI (non-ST elevated myocardial infarction) Social History Smoking Status: Never Smoker Smokeless Tobacco Use: No Alcohol Use: occasionally Marital Status: Occupation Status: retired Current/Historical Medications Scheduled Aspirin (Aspirin), 325 MG PO QAM Atorvastatin (Atorvastatin Calcium), 40 MG PO QAM Cholecalciferol (Vitamin D), 1,000 UNITS PO DAILY Citalopram Hydrobromide (Celexa), 20 MG PO QAM Clopidogrel Bisulfate (Clopidogrel), 75 MG PO QAM Metoprolol Succinate (Metoprolol Succinate ER), 12.5 MG PO QAM Travoprost (Travatan Z), 1 DROPS OP HS Allergies Coded Allergies: No Known Allergies (Verified , 11/11/16) Physical Exam Vital Signs Date Time Temp Pulse Resp B/P Pulse Ox O2 Delivery O2 Flow Rate FiO2 11/11/16 14:30 59 18 136/79 95 Room Air 11/11/16 13:08 59 18 144/81 95 Room Air 11/11/16 12:28 59 18 152/81 99 Room Air 11/11/16 12:01 58 20 155/79 99 Room Air 11/11/16 11:49 58 20 169/97 100 Room Air 11/11/16 11:49 100 Room Air 11/11/16 11:21 36.5 78 20 156/74 100 Room Air Pain Rating (0-10): 6 Physical Exam VITAL SIGNS - Vital signs and nursing notes were reviewed. GENERAL - 76-year-old male appearing his stated age who is in no acute distress. Communicates well with provider and answers questions appropriately. LUNGS - Chest wall symmetric without accessory muscle use, intercostals retractions, or central cyanosis. Normal vesicular breath sounds CTA B/L. No wheezes, rales, or rhonchi appreciated. CARDIAC - RRR with S1/S2. No murmur, rubs, or gallops appreciated. No reproducible tenderness to palpation appreciated over the anterior chest wall. ABDOMEN - Abdominal contour flat and without pulsations or visible masses. BS normoactive all four quadrants. No tenderness, palpable masses, hepatosplenomegaly, or ascites noted. EXTREMITIES - No clubbing or peripheral cyanosis. No pretibial edema present. +3 /5 radial and dorsalis pedis pulses palpated throughout. +5/5 strength noted in UE/LE bilaterally. NEUROLOGIC - Cranial nerves II through XII grossly intact. Sensory intact to light touch throughout. PSYCH - A&Ox3 and cooperates fully with examiner. Pt is very pleasant and interacts well with examiner. Medical Decision & Procedures ER Provider Diagnostic Interpretation: Radiological imaging and reports were reviewed by [email or web address]. Radiologist's Interpretation as follows: CHEST ONE VIEW PORTABLE CLINICAL HISTORY: cp dyspnea COMPARISON STUDY: No previous studies for comparison. FINDINGS: The bones soft tissues and hemidiaphragms are normal. The cardiomediastinal silhouette is normal. The lungs are clear. The pulmonary vasculature is normal. IMPRESSION: Negative chest. Laboratory Results Test 11/11/16 11:45 Prothrombin Time 11.2 SECONDS (9.0-12.0) Prothromb Time International Ratio 1.0 (0.9-1.1) D-Dimer 420 ug/L FEU (0-500) Creatine Kinase MB 2.3 ng/ml (0.5-3.6) Creatine Kinase MB Ratio 1.5 (0-3.0) Lipase 293 U/L (73-393) Thyroid Stimulating Hormone (TSH) 1.200 uIu/ml (0.300-4.500) Medications Administered Medications (Trade) Dose Ordered Sig/Eri Route Start Time Stop Time Status Last Admin Dose Admin Sodium Chloride (Nss 1000ml) 1,000 ml @ 80 mls/hr [id number] STAT IV 11/11/16 11:48 11/11/16 17:05 DC 11/11/16 11:48 80 MLS/HR Nitroglycerin (Nitroglycerin 2% Oint) 1 inch NOW ONCE EXT 11/11/16 12:00 11/11/16 12:01 DC 11/11/16 11:57 1 INCH Procedure Patient was placed on the quality assurance monitor and monitored throughout the entire extent of their stay. In addition, the patient's pulse oximetry was monitored throughout the entire stay. Any abnormalities or aberrancies were addressed appropriately. ECG Indication: chest pain Rate (beats per minute): 58 Rhythm: normal sinus Findings: ST depression (Inferior) Comparison ECG Date: when compared to outpatient EKG in April of 2016. Change: Repeat EKG demonstrated mild improvement of the inferior ST depression with a NSR at a rate of 56 bpm. ED Course Patient was seen and evaluated by myself. On initial valuation, it was evident the patient certainly had some ST depression in the inferior leads. Case was discussed with my attending physician while labs were being drawn. A repeat EKG demonstrated some normalization of the ST depression without any intervention. The patient was treated with 1 inch of nitroglycerin. He was hydrated with normal saline at a rate of 80 mL per hour. Chest x-ray was obtained. Laboratory results demonstrate no acute leukocytosis, worrisome anemia, or bandemia. The patient has no significant electrolyte abnormalities. Cardiac enzymes are negative. Initial troponin was negative. The patient was reevaluated on multiple occasions. He is now complaining of no discomfort at this time. [facility] the [facility] for further evaluation and management. Patient admitted in stable condition. Medical Decision Given the patient's presentation and stated complaints, I did elect to perform the above-mentioned workup. The patient presents today with concerning chest pain and EKG changes. The patient clinically appears poor on initial assessment. He did seem to improve with nitroglycerin and IV fluids. His initial cardiac enzymes were negative. Chest x-ray demonstrates no acute findings. Concern is for possible infarct or event. He is symptom-free after nature glycerin. This further solidifies reason for admission for further evaluation and intervention is necessary. [facility] and [facility]. Patient admitted in fair condition. In the evaluation and treatment of this patient, the following differential diagnoses were considered: IL, ASC, Dysrhythmia, Angina, Mediastinitis, GERD, Esophagitis, PE, Pneumonia, Bronchitis, Costochondritis, Rib Fracture, Zoster. Impression Primary Impression: Chest pain Departure Information Dispostion Admitted as an inpatient Condition FAIR Prescriptions Aspirin (Aspirin) 325 Mg Ectab 325 MG PO QAM for 30 Days, #30 Prov: Donny Llanos MD 11/13/16 Metoprolol Succinate (Metoprolol Succinate ER) 25 Mg Tabcr 12.5 MG PO QAM for 30 Days, #15 TAB 1 Refill Prov: Donny Llanos MD 11/13/16 Atorvastatin (Atorvastatin Calcium) 40 Mg Tab 40 MG PO QAM for 30 Days, #30 TAB 1 Refill Prov: Donny Llanos MD 11/13/16 Clopidogrel Bisulfate (Clopidogrel) 75 Mg Tab 75 MG PO QAM for 30 Days, #30 TAB 1 Refill Prov: Donny Llanos MD 11/13/16 Referrals Kee Linton M.D. (PCP) Forms HOME CARE DOCUMENTATION FORM, IMPORTANT VISIT INFORMATION Patient Instructions [facility] Problem Qualifiers Primary Impression: Chest pain Chest pain type: precordial pain Qualified Codes: R07.2 - Precordial pain
== END 2016-11-13 11:21 | disposition home or self-care (01) | DRG 281 ==
LOC: ENRESERVTM → ENRESERVDT → C.EDB 11:17 → C.MED 14:42 → EDBEDREQ 15:01 → C.2E 11-12 15:53 → OBSVTOIN 11-12 19:24
PROVIDERS: ADMIT Internal Medicine; ATTEND Internal Medicine
PROC: B2111ZZ Fluoroscopy of Multiple Coronary Arteries using Low Osmolar Contrast (ICD-10-PCS; 2016-11-12)
PROC: B2151ZZ Fluoroscopy of Left Heart using Low Osmolar Contrast (ICD-10-PCS; 2016-11-12)
PROC: 4A023N7 Measurement of Cardiac Sampling and Pressure, Left Heart, Percutaneous Approach (ICD-10-PCS; principal; 2016-11-12 13:09)
DX: I21.4 Non-ST elevation (NSTEMI) myocardial infarction (principal); N17.9 Acute kidney failure, unspecified; Z79.899 Other long term (current) drug therapy; I25.10 Atherosclerotic heart disease of native coronary artery without angina pectoris; I12.9 Hypertensive chronic kidney disease with stage 1 through stage 4 chronic kidney disease, or unspecified chronic kidney disease; N18.2 Chronic kidney disease, stage 2 (mild); Z82.49 Family history of ischemic heart disease and other diseases of the circulatory system

== ENCOUNTER → 2016-11-14 | Outpatient (CLI) | payer BC ==
[~2016-11-14] MED LIST: ASPEC325 PO; CHOL100010 PO; CITA40TA12 PO; LPT40 PO; NTRSLP4 SL; PLV75 PO; TPRSR25 PO; TRAV0.00 OP
[2016-11-14 11:28] LABS: BLOOD UREA NITROGEN 17 mg/dl (7-18); BUN/CREATININE RATIO 11.1 (10-20); CALCIUM 8.7 mg/dl (8.5-10.1); CARBON DIOXIDE 27 mmol/L (21-32); CHLORIDE 107 mmol/L (98-107); GLUCOSE 81 mg/dl (70-99); POTASSIUM 4.1 mmol/L (3.5-5.1); SODIUM 144 mmol/L (136-145)
== END | disposition home or self-care (01) ==
LOC: C.LAB1850 10:00
PROVIDERS: ATTEND Internal Medicine Cardiovascular Disease
DX: N28.9 Disorder of kidney and ureter, unspecified (principal)

== ENCOUNTER → 2016-12-26 | Outpatient (CLI) | payer BC ==
[~2016-12-26] MED LIST changes: -NTRSLP4 SL
[2016-12-26 10:05] LABS: CHOLESTEROL/HDL RATIO 1.8
== END | disposition home or self-care (01) ==
LOC: C.LAB1850 08:17
PROVIDERS: ATTEND Physician Assistant
DX: R68.89 Other general symptoms and signs (principal)

== ENCOUNTER → 2017-07-02 | Outpatient (CLI) | payer BC ==
[2017-07-02 09:40] LABS: HEMATOCRIT 36.4 % (42-52); MEAN CELL VOLUME 91.7 fL (80-100); MEAN CORPUSCULAR HEMOGLOBIN 31.2 pg (25-34); MEAN CORPUSCULAR HGB CONC 34.1 g/dl (32-36); MEAN PLATELET VOLUME 11.1 fL (7.4-10.4); PLATELET COUNT 128 K/uL (130-400); RED BLOOD COUNT 3.97 M/uL (4.7-6.1); WHITE BLOOD COUNT 4.18 K/uL (4.8-10.8)
[2017-07-02 10:28] LABS: BLOOD UREA NITROGEN 19 mg/dl (7-18); BUN/CREATININE RATIO 12.8 (10-20); CALCIUM 8.7 mg/dl (8.5-10.1); CARBON DIOXIDE 30 mmol/L (21-32); CHLORIDE 109 mmol/L (98-107); GLUCOSE 86 mg/dl (70-99); SODIUM 144 mmol/L (136-145)
[2017-07-02 10:31] LABS: CHOLESTEROL 121 mg/dl (0-200); CHOLESTEROL/HDL RATIO 1.5; HDL CHOLESTEROL 80 mg/dl; LDL CHOLESTEROL CALCULATED 26 mg/dl; TRIGLYCERIDES 75 mg/dl (0-150); VERY LOW DENSITY LIPOPROT CALC 15 mg/dl
== END | disposition home or self-care (01) ==
LOC: C.LAB1850 08:07
PROVIDERS: ATTEND Internal Medicine Geriatric Medicine
DX: Z00.00 Encounter for general adult medical examination without abnormal findings (principal); N18.9 Chronic kidney disease, unspecified; E78.5 Hyperlipidemia, unspecified

== ENCOUNTER → 2017-07-09 | Outpatient (CLI) | payer BC ==
--- NOTE | 2017-07-09 14:31 | DIAGNOSTIC IMAGING REPORT ---
LEFT HAND 3 VIEWS CLINICAL HISTORY: Osteoarthrosis. FINDINGS: 3 views of the left hand are obtained. No prior studies are available for comparison at the time of dictation. The skeletal structures are osteopenic. No fracture is seen. Advanced osteoarthritic change is present at the first carpometacarpal joint where there is bony overgrowth, subluxation, and sclerosis. Moderate osteoarthritic change is also seen involving the interphalangeal joints. Mild erosive osteoarthritis is seen involving the distal interphalangeal joints as well as the fifth proximal interphalangeal joint. Mild arthritic change is seen at the first metacarpophalangeal joint. The overlying soft tissues are within normal limits. IMPRESSION: 1. No acute bony abnormality is seen in the left hand. 2. Osteopenia and arthritic change as above. Electronically signed by: Elvin Morales M.D. 07/09/2017 2:30 PM Dictated Date/Time: 07/09/2017 2:28 PM
--- NOTE | 2017-07-09 14:32 | DIAGNOSTIC IMAGING REPORT ---
R HAND MIN 3 VIEWS ROUTINE CLINICAL HISTORY: Chronic osteoarthritis. Right second digit pain. COMPARISON: Right hand radiographs August 12, 2012. FINDINGS: Alignment of the right hand is anatomic. There is moderate joint space narrowing with extensive osteophytosis within multiple joints of the right hand, most pronounced within the distal interphalangeal joints of the second through fifth digits. Moderate osteoarthrosis noted within multiple additional articulations within the right hand, most pronounced within the right fifth digit PIP joint. Similar findings were shown on exam of August 12, 2012. There is no acute fracture. 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 This may reflect erosive osteoarthritis. Electronically signed by: Damion Burns M.D. 07/09/2017 2:31 PM Dictated Date/Time: 07/09/2017 2:22 PM
== END | disposition home or self-care (01) ==
LOC: C.RADBC 14:01
PROVIDERS: ATTEND Internal Medicine Geriatric Medicine
DX: M19.041 Primary osteoarthritis, right hand (principal); M79.644 Pain in right finger(s); M85.841 Other specified disorders of bone density and structure, right hand

== ENCOUNTER → 2017-08-10 | Outpatient (CLI) | payer BC | END | disposition home or self-care (01) | LOC: C.MAMM 13:35 | PROVIDERS: ATTEND Internal Medicine Geriatric Medicine | DX: Z00.00 Encounter for general adult medical examination without abnormal findings (principal) ==

== ENCOUNTER → 2018-01-05 | Day surgery (SDC) | payer BC ==
[2017-12-09 11:03] VITALS: Ht 172.7 cm; Wt 68.2 kg
[~2018-01-05] VITALS: Ht 172.7 cm; Wt 68.2 kg
[~2018-01-05] MED LIST changes: +500ML BSS 0.3ML EPI 1:1000PF IRRIG ONE; +ACETAMINOPHEN 325 MG TAB PO PRN; +AMLO-114 PO; +AMVISC PLUS 0.8ML SYRINGE INT OCU ONE; -ASPEC325 PO; +ASPI81TA28 PO; +ATOR-24 PO; +ATROPINE SULFATE 0.1 MG/ML 5ML SYR IV PRN; +BSS FLUSH ONE; +EpHEDrine SULFATE INJ 50 MG/ML AMP IV PRN; +EpINEphrine INJ 1MG/ML AMP 1 MG/ML AMP ONE; +FSMD/70 PO; +LACTATED RINGER'S 1000ML 500 ML IV SCH; +LIDOCAINE 3.5% OPH GEL PER APPLICATION CHARGE ONE; +LIDOCAINE HCL 1% MPF 2 ML VIAL ONE; -LPT40 PO; +MIDAZOLAM HCL 1 MG/ML 2ML VIAL ONE; -PLV75 PO; +POVIDONE-IODINE OP SOLN 30 ML BTL ONE; +PROPARACAINE 0.5% OP SOLN PER DROP CHARGE OPR SCH; +TOBRAMYCIN/DEXAMETHASONE OPH OINT PER APPLN CHARGE ONE; -TPRSR25 PO
[2018-01-05] MEDS: PHENYLEPHRINE HCL 2.5% OP SOLN PER DROP CHARGE OPR SCH ×2 (08:11→08:16)
[2018-01-05] MEDS: TROPICAMIDE 1% OP SOLN PER DROP CHARGE OPR SCH ×2 (08:12→08:17)
[2018-01-05] MEDS: CYCLOPENTOLATE HCL 1% OP SOLN PER DROP CHARGE OPR SCH ×2 (08:13→08:18)
[2018-01-05] MEDS: KETOROLAC 0.5% OP SOLN PER DROP CHARGE OPR SCH ×2 (08:14→08:19)
[2018-01-05] MEDS: GATIFLOXACIN OP SOLN PER DROP CHARGE OPR SCH ×2 (08:15→08:27)
--- NOTE | 2018-01-05 08:47 | History & Physical Bridge - SC ---
H&P Re-Evaluation Bridge Note: I have examined the patient, reviewed the History & Physical and in the interval since the performance of the History & Physical I have noted the following changes of clinical significance: Diagnosis: Right Cataract Procedure: Right Cataract Removal with Lens Implant No changes noted
--- NOTE | 2018-01-05 09:29 | [facility] Operative Report ---
Operative Report Date of Service Jan 05, 2018. Operative Report 1. PREOPERATIVE DIAGNOSIS: Cataract of the right eye. 2. POSTOPERATIVE DIAGNOSIS: Same. 3. PROCEDURE: Phacoemulsification with intraocular lens implantation of the right eye. SURGEON: Dr. Benja Montes. ANESTHESIA: Topical Lidocaine gel, 1% Non- Preserved intracameral Lidocaine, and monitored intravenous sedation. INDICATIONS FOR THE PROCEDURE: The patient is a 77 - year-old male with a history of cataract of the right eye causing significant visual impairment. The details of the proposed procedure were explained to the patient who asked appropriate questions and following discussion of all risks, benefits and alternatives agreed to have the procedure done. 4. OPERATION AND FINDINGS: DESCRIPTION OF PROCEDURE: After informed consent was obtained, the patient was brought to the Operating Room at the [facility]. The patient was placed in a supine position and then the right eye was prepped and draped in the usual sterile fashion for intraocular surgery. A drop of topical Lidocaine gel was placed in the operative eye. A wire lid speculum was then placed in the fornices. A corneal paracentesis was then created temporally. The Non-Preserved Lidocaine was then instilled into the anterior chamber. The anterior chamber was then pressurized with viscoelastic. A 2.0 mm clear corneal incision was then created temporally. A cystotome was inserted into the anterior chamber and used to create a tear in the anterior lens capsule. This capsular tear was then used to create a small flap and the flap was dragged in a counterclockwise direction in order to create a continuous curvilinear capsulorrhexis. Hydrodissection was accomplished with balanced salt solution. Phacoemulsification of the lens nucleus was then performed in a standard [id number] technique. The phaco time was 26 seconds with an average power of 17 %. The remaining cortical material was removed using irrigation aspiration. The capsular bag was then filled with viscoelastic. A [employer]ch [employer] Lomb MI60L +17.5 diopters lens was then loaded into the injector and injected into the capsular bag. The remaining viscoelastic was removed with the irrigation aspiration handpiece. The wound was hydrated and then checked and found to be watertight. The intraocular pressure was checked and found to be adequate. The wire lid speculum was removed and the patient's face was cleaned and dried. TobraDex ointment was placed in the inferior fornix. The patient was discharged to the Recovery Room having tolerated the procedure well. There were no complications. The patient will be seen tomorrow in the office for follow-up. I attest to the content of the Intraoperative Record and any orders documented therein. Any exceptions are noted below.
--- NOTE | 2018-01-05 09:30 | Discharge Instructions-SurgCtr ---
Discharge Instructions Date of Service Jan 05, 2018. Visit Reason for Visit: Cataract Right Eye Discharge Discharge Diagnosis / Problem: cataract Discharge Goals Goal(s): Improve function Activity Recommendations Activity Limitations: per Instructions/Follow-up section Anesthesia . Post Anesthesia Instructions: If you have had General Anesthesia or IV Sedation: * Do not drive today. * Resume driving when surgeon permits. * Do not make important decisions or sign legal documents today. * Call surgeon for: 1. Temperature elevations greater than 101 degrees F. 2. Uncontrollable pain. 3. Excessive bleeding. 4. Persistent nausea and vomiting. 5. Medication intolerance (nausea, vomiting or rash). * For nausea and vomiting use only clear liquids such as: tea, soda, bouillon until nausea subsides, then gradually increase diet as tolerated. * If you have any concerns or questions, call your surgeon's office. If physician is unavailable and it is an emergency, call 911 or go to the nearest emergency room. . Diet Recommendations Home Diet: resume previous diet Procedures Procedures Performed: Right Cataract Phacoemulsification With Intraocular Lens Implant Pending Studies Studies pending at discharge: no Medical Emergencies . Who to Call and When: Medical Emergencies: If at any time you feel your situation is an emergency, please call 911 immediately. . Non-Emergent Contact Non-Emergency issues call your: Electric Motor Analyst . . "Provider Documentation" section prepared by Benja Montes. .
[2018-01-05 09:33] VITALS: TEMP 36.6
[2018-01-05 09:54] VITALS: BP 148/76; PULSE 54; O2SAT 99
--- NOTE | 2018-01-05 09:56 | Anesthesia Progress Nt - [facility] ---
Anesthesia Post Op Note Date & Time Jan 05, 2018 at 09:56 Vital Signs Pain Intensity: 0 Vital Signs Past 12 Hours Date Time Temp Pulse Resp B/P (MAP) Pulse Ox O2 Delivery O2 Flow Rate FiO2 01/05/18 09:54 54 16 148/76 (100) 99 Room Air 01/05/18 09:33 36.6 53 16 166/84 (111) 100 Room Air 01/05/18 08:03 36.4 61 16 144/77 (99) 95 Room Air Notes Mental Status: alert / awake / arousable, participated in evaluation Pt Amnestic to Procedure: Yes Nausea / Vomiting: adequately controlled Pain: adequately controlled Airway Patency, RR, SpO2: stable & adequate BP & HR: stable & adequate Hydration State: stable & adequate Anesthetic Complications: no major complications apparent
== END | disposition home or self-care (01) ==
LOC: X.SURG 07:47
PROVIDERS: ATTEND Ophthalmology
DX: H26.9 Unspecified cataract (principal); N18.9 Chronic kidney disease, unspecified; M81.0 Age-related osteoporosis without current pathological fracture; I10 Essential (primary) hypertension; D64.9 Anemia, unspecified; N40.1 Benign prostatic hyperplasia with lower urinary tract symptoms; N13.8 Other obstructive and reflux uropathy; F41.8 Other specified anxiety disorders; I25.2 Old myocardial infarction; E78.5 Hyperlipidemia, unspecified; H40.9 Unspecified glaucoma; E55.9 Vitamin D deficiency, unspecified; Z79.82 Long term (current) use of aspirin; Z79.899 Other long term (current) drug therapy

== ENCOUNTER → 2018-01-26 | Day surgery (SDC) | payer BC ==
[2018-01-14 14:50] VITALS: Ht 172.7 cm; Wt 68.2 kg
[~2018-01-26] VITALS: Ht 172.7 cm; Wt 68.2 kg
[~2018-01-26] MED LIST changes: +OCUCOAT 1 ML SOLN IO ONE; +ONDANSETRON INJ 2 MG/ML 2 ML VIAL IV PRN; +PROPARACAINE 0.5% OP SOLN PER DROP CHARGE OPL SCH; -PROPARACAINE 0.5% OP SOLN PER DROP CHARGE OPR SCH
[2018-01-26] MEDS: PHENYLEPHRINE HCL 2.5% OP SOLN PER DROP CHARGE OPL SCH ×2 (06:31→06:37)
[2018-01-26] MEDS: TROPICAMIDE 1% OP SOLN PER DROP CHARGE OPL SCH ×2 (06:32→06:38)
[2018-01-26] MEDS: CYCLOPENTOLATE HCL 1% OP SOLN PER DROP CHARGE OPL SCH ×2 (06:33→06:39)
[2018-01-26] MEDS: KETOROLAC 0.5% OP SOLN PER DROP CHARGE OPL SCH ×2 (06:34→06:40)
[2018-01-26] MEDS: GATIFLOXACIN OP SOLN PER DROP CHARGE OPL SCH ×2 (06:35→06:41)
--- NOTE | 2018-01-26 07:00 | History & Physical Bridge - SC ---
H&P Re-Evaluation Bridge Note: I have examined the patient, reviewed the History & Physical and in the interval since the performance of the History & Physical I have noted the following changes of clinical significance: Diagnosis: Left Cataract Procedure: Left Cataract Removal with Lens Implant No changes noted
--- NOTE | 2018-01-26 07:22 | [facility] Operative Report ---
Operative Report Date of Service January 26, 2018. Operative Report 1. PREOPERATIVE DIAGNOSIS: Cataract of the left eye. 2. POSTOPERATIVE DIAGNOSIS: Same. 3. PROCEDURE: Phacoemulsification with intraocular lens implantation of the left eye. SURGEON: Dr. Benja Montes. ANESTHESIA: Topical Lidocaine gel, 1% Non- Preserved intracameral Lidocaine, and monitored intravenous sedation. INDICATIONS FOR THE PROCEDURE: The patient is a 77 - year-old male with a history of cataract of the left eye causing significant visual impairment. The details of the proposed procedure were explained to the patient who asked appropriate questions and following discussion of all risks, benefits and alternatives agreed to have the procedure done. 4. OPERATION AND FINDINGS: DESCRIPTION OF PROCEDURE: After informed consent was obtained, the patient was brought to the Operating Room at the [facility]. The patient was placed in a supine position and then the left eye was prepped and draped in the usual sterile fashion for intraocular surgery. A drop of topical Lidocaine gel was placed in the operative eye. A wire lid speculum was then placed in the fornices. A corneal paracentesis was then created temporally. The Non-Preserved Lidocaine was then instilled into the anterior chamber. The anterior chamber was then pressurized with viscoelastic. A 2.0 mm clear corneal incision was then created temporally. A cystotome was inserted into the anterior chamber and used to create a tear in the anterior lens capsule. This capsular tear was then used to create a small flap and the flap was dragged in a counterclockwise direction in order to create a continuous curvilinear capsulorrhexis. Hydrodissection was accomplished with balanced salt solution. Phacoemulsification of the lens nucleus was then performed in a standard aqqcry-noe-bnhlemx technique. The phaco time was 27 seconds with an average power of 10 %. The remaining cortical material was removed using irrigation aspiration. The capsular bag was then filled with viscoelastic. A Bausch [employer] Lomb MI60L +17.0 diopters lens was then loaded into the injector and injected into the capsular bag. The remaining viscoelastic was removed with the irrigation aspiration handpiece. The wound was hydrated and then checked and found to be watertight. The intraocular pressure was checked and found to be adequate. The wire lid speculum was removed and the patient's face was cleaned and dried. TobraDex ointment was placed in the inferior fornix. The patient was discharged to the Recovery Room having tolerated the procedure well. There were no complications. The patient will be seen tomorrow in the office for follow-up. I attest to the content of the Intraoperative Record and any orders documented therein. Any exceptions are noted below.
--- NOTE | 2018-01-26 07:23 | Discharge Instructions-SurgCtr ---
Discharge Instructions Date of Service January 26, 2018. Visit Reason for Visit: Cataract Left Eye Discharge Discharge Diagnosis / Problem: cataract Discharge Goals Goal(s): Improve function Activity Recommendations Activity Limitations: per Instructions/Follow-up section Anesthesia . Post Anesthesia Instructions: If you have had General Anesthesia or IV Sedation: * Do not drive today. * Resume driving when surgeon permits. * Do not make important decisions or sign legal documents today. * Call surgeon for: 1. Temperature elevations greater than 101 degrees F. 2. Uncontrollable pain. 3. Excessive bleeding. 4. Persistent nausea and vomiting. 5. Medication intolerance (nausea, vomiting or rash). * For nausea and vomiting use only clear liquids such as: tea, soda, bouillon until nausea subsides, then gradually increase diet as tolerated. * If you have any concerns or questions, call your surgeon's office. If physician is unavailable and it is an emergency, call 911 or go to the nearest emergency room. . Diet Recommendations Home Diet: resume previous diet Procedures Procedures Performed: Left Cataract Phacoemulsification With Intraocular Lens Implant Pending Studies Studies pending at discharge: no Medical Emergencies . Who to Call and When: Medical Emergencies: If at any time you feel your situation is an emergency, please call 911 immediately. . Non-Emergent Contact Non-Emergency issues call your: Window Trimmer Apprentice . . "Provider Documentation" section prepared by Benja Montes. .
[2018-01-26 07:50] VITALS: BP 139/68; PULSE 56; O2SAT 100
--- NOTE | 2018-01-26 08:07 | Anesthesia Progress Nt - [facility] ---
Anesthesia Post Op Note Date & Time January 26, 2018 at 08:06 Vital Signs Pain Intensity: 0 Vital Signs Past 12 Hours Date Time Temp Pulse Resp B/P (MAP) Pulse Ox O2 Delivery O2 Flow Rate FiO2 01/26/18 07:50 56 20 139/68 (91) 100 Room Air 01/26/18 07:27 36.5 56 16 146/67 (93) 100 Room Air 01/26/18 06:24 36.3 55 18 124/74 (91) 96 Room Air Notes Mental Status: alert / awake / arousable, participated in evaluation Pt Amnestic to Procedure: Yes Nausea / Vomiting: adequately controlled Pain: adequately controlled Airway Patency, RR, SpO2: stable & adequate BP & HR: stable & adequate Hydration State: stable & adequate Anesthetic Complications: no major complications apparent Non distressing recall
== END | disposition home or self-care (01) ==
LOC: X.SURG 06:11
PROVIDERS: ATTEND Ophthalmology
DX: H26.9 Unspecified cataract (principal); I10 Essential (primary) hypertension; I25.10 Atherosclerotic heart disease of native coronary artery without angina pectoris; N18.9 Chronic kidney disease, unspecified; I25.2 Old myocardial infarction; M19.90 Unspecified osteoarthritis, unspecified site; F41.8 Other specified anxiety disorders; E78.5 Hyperlipidemia, unspecified; Z79.899 Other long term (current) drug therapy; Z79.82 Long term (current) use of aspirin; Z98.41 Cataract extraction status, right eye

== ENCOUNTER 2024-12-06 14:09 | Inpatient (IN) ==
[2024-12-06] MEDS: OPTIRAY 320 125ml IV ONE (14:17)
--- NOTE | 2024-12-06 14:24 | CT Scan Report ---
CT OF THE HEAD WITHOUT CONTRAST CLINICAL HISTORY: neuro deficit, acute stroke suspected. Right facial droop. Right-sided weakness. COMPARISON STUDY: MRI of the brain March 27, 2022. TECHNIQUE: Helical axial images of the head were obtained without IV contrast. Automated exposure con trol was utilized for the study. A dose lowering technique was utilized adhering to the principles o f ALARA. FINDINGS: No acute intracranial hemorrhage, midline shift or mass effect is present. The ventricular system is unremarkable. The basal cisterns are patent. No extra-axial collections are present. There are no findings to suggest acute dural sinus thrombosis or acute territorial infarct. There are posto perative findings and mild polypoid mucosal thickening within the sinuses. IMPRESSION: No acute intracranial findings. ACT 112: Negative or not required by law. Electronically signed by: Damion Burns M.D. 12/06/2024 2:22 PM
--- NOTE | 2024-12-06 14:30 | CT Scan Report ---
CTA ANGIOGRAPHY OF THE HEAD CLINICAL HISTORY: neuro deficit, acute stroke suspected. Right facial droop. Right-sided weakness. COMPARISON STUDY: MRI of the brain March 27, 2022. TECHNIQUE: Helical axial images of the head were obtained following uneventful intravenous administr ation of 115 cc of Optiray. Sagittal and coronal reconstructions were viewed as well as maximal inten sity projections on an independent 3-D workstation. Automated exposure control was utilized for the study. A dose lowering technique was utilized adhering to the principles of ALARA. CT DOSE: 1234.83 mGy.cm FINDINGS: No acute intracranial hemorrhage, midline shift or mass effect is present. Ventricular syst em is unremarkable. Basal cisterns are patent. There are no extra axial collections. There is moderat e plaque within the bilateral cavernous carotids without stenosis. The right A2 segment is dominant. No vessel occlusion is identified within the anterior or posterior circulations. There is no intracra nial aneurysm. IMPRESSION: No intracranial vessel occlusion identified. No intracranial aneurysm. ACT 112: Negative or not required by law. Electronically signed by: Damion Burns M.D. 12/06/2024 2:28 PM
[2024-12-06] MEDS: LABETALOL HCL IV 5 MG/ML 20ML IV ONE (14:33)
--- NOTE | 2024-12-06 14:36 | CT Scan Report ---
CT ANGIOGRAPHY OF THE NECK WITH CONTRAST CLINICAL HISTORY: neuro deficit, acute stroke suspected COMPARISON STUDY: No previous studies for comparison. Technique: CT angiography of the carotid and vertebral arteries was obtained using Optiray and 3D rec onstruction on an independent workstation. NASCET criteria was utilized. Automated exposure control was utilized for the study. A dose lowering technique was utilized adhering to the principles of ALA RA. Findings: Visualized portions of the lung apices are unremarkable. There is no cervical lymphadenopat hy. No cervical spine fractures are present. There is mild plaque within the carotid bifurcations wit hout stenosis. The bilateral common carotid, cervical internal carotid and vertebral arteries are pat ent. There is no aneurysm or dissection within the neck. IMPRESSION: No stenosis or dissection within the bilateral common carotid, cervical internal carotid or vertebral arteries. ACT 112: Negative or not required by law. Electronically signed by: Damion Burns M.D. 12/06/2024 2:34 PM
[2024-12-06] MEDS ORDERED: No Aspirin within 24hrs of THROMBOLYTIC-Stroke PO SCH (14:45)
[2024-12-06 14:46] LABS: Basophils # (auto) 0.02 K/uL (0.00-0.20); Basophils % (auto) 0.4 %; Eosinophils % (auto) 2.2 %; Hematocrit (blood only) 32.2 % (42.0-52.0); Hemoglobin 10.8 g/dl (14.0-18.0); Immature Granulocytes # (auto) 0.03 K/uL (0.01-0.20); Immature Granulocytes % (auto) 0.7 %; Lymphocytes # (auto) 1.21 K/uL (1.20-3.40); Lymphocytes % (auto) 27.1 %; Mean Corpuscular Hemoglobin 31.3 pg (25.0-34.0); Mean Corpuscular Hgb Conc 33.5 g/dL (32.0-36.0); Mean Corpuscular Volume 93.3 fL (80.0-100.0); Mean Platelet Volume 10.6 fL (9.4-12.4); Monocytes # (auto) 0.35 K/uL (0.11-0.59); Monocytes % (auto) 7.8 %; Neutrophils # (auto) 2.75 K/uL (1.40-6.50); Neutrophils % (auto) 61.8 %; Platelet Count 141 K/uL (130-400); RDW Coefficient of Variation 12.2 % (11.5-14.5); RDW Standard Deviation 41.7 fL (36.4-46.3); Red Blood Count 3.45 M/uL (4.70-6.10); White Blood Count 4.46 K/ul (4.8-10.8)
[2024-12-06] MEDS: SODIUM CHLORIDE 0.9% 10ML FLUSH IV STA (14:48)
[2024-12-06] MEDS: TENECTEPLASE 15 MG in SYRINGE 0 ML IV ONE (14:48)
[2024-12-06] MEDS: STAT IV/IM STA (14:48)
[2024-12-06] MEDS ORDERED: STAT IV Infusion **Titration per Protocol STA (14:50)
[2024-12-06] MEDS ORDERED: PHARMACIST DISCHARGE MED REC CONSULT PRN ×2 (14:50→18:10)
[2024-12-06 15:00] LABS: Albumin Globulin Ratio 1.6 (0.9-2); Albumin Level 3.6 gm/dl (3.4-5.0); BUN Creatinine Ratio 19.5 (10-20); Bilirubin,Total 0.5 mg/dl (0.2-1.0); Calcium 8.8 mg/dl (8.6-10.3); Creatinine Clr Calc Pharmacy 29.2 ml/min; Globulin 2.2 gm/dl (2.5-4.0); Magnesium 2.1 mg/dl (1.7-2.4); Potassium 4.7 mmol/L (3.5-5.1); Total Protein 5.8 gm/dl (6.0-8.3)
[2024-12-06] MEDS: niCARdipine 25 MG in SODIUM CHLORIDE 0.9% 240 ML IV SCH (15:02)
[2024-12-06 15:06] LABS: Troponin I High Sensitivity 10.2 pg/ml (0-20)
[2024-12-06 15:18] LABS: INR 1.1 (0.9-1.1); Partial Thromboplastin Time 26 Seconds (21-31); Prothrombin Time 11.9 Seconds (9.0-12.0)
--- NOTE | 2024-12-06 15:24 | Emergency Department Note ---
Impression & Plan Stroke, Acute right hemiparesis ED Provider Note NAME: RACQUEL HERCULES AGE: 84 SEX: M : 1940 ARRIVES VIA: Ambulance INFORMANT: Patient, ED PROVIDER(S): Jena Dunne MD CHIEF COMPLAINT: Stroke alert HPI: This is a 89-year-old male presenting for a stroke alert. Patient was last known well approximately 1340 when he is found to have fallen to the ground to his right side. notes he is unable to get up off the ground. He did not hit his head or have any LOC. He was having new right-sided upper and lower extremity deficits. He has a slight right facial droop. He has been a stroke alert prior to ER arrival. Otherwise he does not take any blood thinners. No recent traumatic injuries or falls. He reports history of parkinsonism. ROS: See above HPI for pertinent positives & negatives. A total of 10 systems reviewed and were otherwise negative. PAST MEDICAL HISTORY: See Below PAST SURGICAL HISTORY: See Below FAMILY HISTORY: See Below SOCIAL HISTORY: See Below HOME MEDICATIONS: See Below ALLERGIES: See Below VITALS: See Below PHYSICAL EXAMINATION: General: resting comfortably in no acute distress Head: Normocephalic and atraumatic Eyes: Normal inspection, extraocular muscles intact Ear, nose, throat: Normal external exam Neck: Normal range of motion Respiratory: lungs clear to auscultation bilaterally Cardiovascular: Regular rate/rhythm, no murmur GI: soft, nontender, no guarding or rebound Extremities: nontender, moves all extremities Neuro: Right facial droop with 0/5 strength in right upper and lower extremity, alert and oriented Skin: Warm, dry, and intact MEDICAL DECISION MAKING: This is an 84-year-old male presenting as a stroke alert. Patient has a current NIH of 9. Patient is within window for TNK. I did go over risk/benefits with him and assess for contraindications. No contraindication at this time. He does have elevated blood pressure. Labetalol was ordered, initially 5 mg with improvement. However prior to TNK administration, patient require second dose of labetalol, [address] read independently by me as no obvious SAH or bleed -CT of the head, CTA head and neck are read as negative by radiology, without LVO -Case discussed with Dr. Hinds, stroke neurologist, teleneurology from [place]. He is evaluated patient prior to TNK administration. -Patient was eval by Dr. Hinds on stroke cards. Given go-ahead for TNK. Patient given TNK after blood pressure is appropriate. -Patient on nicardipine drip for elevated blood pressures post TNK. Differential diagnosis: Intracranial hemorrhage, LVO, stroke, encephalopathy, UTI Independent History obtained from: Diagnostics interpreted by me: ECG: ECG independently interpreted by me with sinus bradycardia rate of 54, normal axis, normal OH, normal QRS, normal QTc, no ST segment elevations consistent with STEMI criteria Cardiac Monitoring: An order was placed for continuous cardiac monitoring. The monitor shows a rate of 75 with sinus rhythm. Critical Care Note: I have personally spent 55 minutes of critical care time in the direct management of this patient. This includes bedside care, interpretation of diagnostic studies, and testing, discussion with consultants, patient, and family members, and other required patient management activities. This 55 minutes is in excess of all separately billable procedures. Past Med/Surg History Problem List (Updated 12/06/24 @ 19:09 by Jena Dunne MD) Acute right hemiparesis (Acute) Stroke (Acute) Anxiety CVA (cerebral vascular accident) Bradycardia Syncope Hypertension (Chronic) Arteriosclerosis of coronary artery (Chronic) Dyslipidemia (Chronic) Stage 3b chronic kidney disease Kidney mass Complex renal cyst Benign prostatic hyperplasia with urinary obstruction (Acute) Parkinsonism Anemia Cervical myelopathy Cervical radiculopathy B12 deficiency IPMN (intraductal papillary mucinous neoplasm) MR report suggests IPMN, Last eval 02/2020 Anxiety with depression (Chronic) Followed by Psychiatry Osteoporosis (Chronic) Vitamin D deficiency (Chronic) Medical History Kidney lesion, rampart, bilateral Last MRI 02/2020 Organic impotence History of torn meniscus of left knee Lentigines Rhinitis Actinic keratosis Cervical radiculopathy Erosive osteoarthritis of hands, bilateral Osteoarthritis Glaucoma b/l Myocardial Infarction 09/2017 NSTEMI (non-ST elevated myocardial infarction) 10/2016 Surgical History History of colonoscopy (06/2019) 06/2019, lymphocytic colitis seen on Biopsy History of tooth extraction History of cataract surgery RT/LEFT History of cardiac cath 2017 (NO STENT) Family History Mother , age 56 Rheumatic heart disease Myocardial infarction Denies family history of Ovarian cancer Prostate cancer Diabetes Heart disease Kidney disease Breast cancer Lung cancer Colorectal cancer Hypertension Social History Smoking Status: Never smoker Second Hand Exposure: No ( A CHILD); Do You Dip or Chew Tobacco: No; Hx Alcohol Use: Yes Alcohol type: beer, wine and hard liquor Alcohol Intake Frequency: 2-3 x/Week Hx Substance Use: No Preferred Language: Georgian Communication Ability: Effective Visual Impairment: Limited Hearing Ability: Normal Mold Engraver Required: No Beliefs That Will Affect Care: None marital status: Current Living Situation: Spouse current occupational status: retired How many Children do You have: 2 Feels Safe at Home: Yes Childhood Exposure to Second-Hand Smoke: Yes Diet: regular caffeine: Yes (drinks coffee in mornings ) during the past year weight has: decreased > 10 lbs Dental Care, Regularly: Yes Physical Activity Frequency: 3-4 Times per Week Seatbelt Use: always Sunscreen Use: Yes Assistive Devices: Glasses Allergies Allergies Allergy/AdvReac Type Severity Reaction Status Date / Time amlodipine AdvReac gum Verified 12/06/24 15:21 hyperplasia Home Meds Home Medications Medication Instructions Recorded Confirmed citalopram 20 mg tablet (Celexa) 20 mg PO BID 07/19/19 12/06/24 travoprost 0.004 % eye drops 1 drp OPB HS 12/31/21 12/06/24 (Travatan Z) trazodone 100 mg tablet 100 mg PO HS 10/12/24 12/06/24 brimonidine 0.2 %-timolol 0.5 % 1 drp OPB AMHS 12/06/24 12/06/24 eye drops (Combigan) buspirone 15 mg tablet 15 mg PO BID 12/06/24 12/06/24 Previous Rx's Medication Instructions Recorded telmisartan 20 mg tablet 20 mg PO DAILY #90 tabs 06/01/24 Results & Data (ED) Vital Signs Vital Signs - 24 hr 12/06/24 14:26 12/06/24 14:26 12/06/24 14:29 Temperature 36.8 C 36.8 C Temperature Source Oral Oral Pulse Rate 52 L Pulse Rate [Apical] 60 Pulse Rate from SpO2 Sensor Pulse Rhythm Regular Pulse Rhythm [Apical] Regular Pulse Strength Normal Pulse Strength [Apical] Normal Respiratory Rate 20 12 Respiratory Effort / Characteristics Non-Labored Spontaneous Non-Labored Spontaneous Respiratory Depth Normal Normal Respiratory Pattern Regular Regular Blood Pressure 171/84 H Blood Pressure [Right Arm] 169/82 H Blood Pressure Mean 113 Blood Pressure Mean [Right Arm] 111 Blood Pressure Position Semi-fowlers Blood Pressure Position [Right Arm] Semi-fowlers Pulse Oximetry 96 96 96 Oxygen Delivery Method Room Air Room Air Room Air Sepsis Recent Fever Within 48 Hours No Sepsis New/Unexplained Change in Mental Status N/A Sepsis Action Taken by Nursing No Action Required 12/06/24 14:33 12/06/24 14:35 12/06/24 14:40 Temperature Temperature Source Pulse Rate 52 L Pulse Rate [Apical] Pulse Rate from SpO2 Sensor Pulse Rhythm Pulse Rhythm [Apical] Pulse Strength Pulse Strength [Apical] Respiratory Rate Respiratory Effort / Characteristics Respiratory Depth Respiratory Pattern Blood Pressure 189/90 H 171/84 H 189/101 H Blood Pressure [Right Arm] Blood Pressure Mean 122 130 Blood Pressure Mean [Right Arm] Blood Pressure Position Blood Pressure Position [Right Arm] Pulse Oximetry Oxygen Delivery Method Sepsis Recent Fever Within 48 Hours Sepsis New/Unexplained Change in Mental Status Sepsis Action Taken by Nursing 12/06/24 14:40 12/06/24 14:42 12/06/24 14:42 Temperature Temperature Source Pulse Rate 48 L Pulse Rate [Apical] Pulse Rate from SpO2 Sensor Pulse Rhythm Pulse Rhythm [Apical] Pulse Strength Pulse Strength [Apical] Respiratory Rate 15 Respiratory Effort / Characteristics Respiratory Depth Respiratory Pattern Blood Pressure 189/101 H 191/93 H Blood Pressure [Right Arm] Blood Pressure Mean 130 145 Blood Pressure Mean [Right Arm] Blood Pressure Position Blood Pressure Position [Right Arm] Pulse Oximetry Oxygen Delivery Method Sepsis Recent Fever Within 48 Hours Sepsis New/Unexplained Change in Mental Status Sepsis Action Taken by Nursing 12/06/24 14:46 12/06/24 14:46 12/06/24 15:51 Temperature Temperature Source Pulse Rate 47 L 60 Pulse Rate [Apical] Pulse Rate from SpO2 Sensor 56 L Pulse Rhythm Pulse Rhythm [Apical] Pulse Strength Pulse Strength [Apical] Respiratory Rate 14 Respiratory Effort / Characteristics Respiratory Depth Respiratory Pattern Blood Pressure 191/93 H 170/89 H Blood Pressure [Right Arm] Blood Pressure Mean 118 Blood Pressure Mean [Right Arm] Blood Pressure Position Blood Pressure Position [Right Arm] Pulse Oximetry 99 Oxygen Delivery Method Sepsis Recent Fever Within 48 Hours Sepsis New/Unexplained Change in Mental Status Sepsis Action Taken by Nursing 12/06/24 15:55 12/06/24 15:55 12/06/24 16:00 Temperature Temperature Source Pulse Rate 56 L Pulse Rate [Apical] Pulse Rate from SpO2 Sensor 58 L Pulse Rhythm Pulse Rhythm [Apical] Pulse Strength Pulse Strength [Apical] Respiratory Rate 18 Respiratory Effort / Characteristics Respiratory Depth Respiratory Pattern Blood Pressure 138/68 138/68 Blood Pressure [Right Arm] Blood Pressure Mean 92 92 Blood Pressure Mean [Right Arm] Blood Pressure Position Blood Pressure Position [Right Arm] Pulse Oximetry 99 Oxygen Delivery Method Sepsis Recent Fever Within 48 Hours Sepsis New/Unexplained Change in Mental Status Sepsis Action Taken by Nursing 12/06/24 16:00 12/06/24 16:00 12/06/24 16:00 Temperature Temperature Source Pulse Rate Pulse Rate [Apical] Pulse Rate from SpO2 Sensor Pulse Rhythm Pulse Rhythm [Apical] Pulse Strength Pulse Strength [Apical] Respiratory Rate Respiratory Effort / Characteristics Respiratory Depth Respiratory Pattern Blood Pressure 146/70 H 146/70 H 146/70 H Blood Pressure [Right Arm] Blood Pressure Mean 98 98 98 Blood Pressure Mean [Right Arm] Blood Pressure Position Blood Pressure Position [Right Arm] Pulse Oximetry Oxygen Delivery Method Sepsis Recent Fever Within 48 Hours Sepsis New/Unexplained Change in Mental Status Sepsis Action Taken by Nursing 12/06/24 16:01 12/06/24 16:03 12/06/24 16:05 Temperature Temperature Source Pulse Rate 57 L Pulse Rate [Apical] 57 L Pulse Rate from SpO2 Sensor 57 L Pulse Rhythm Pulse Rhythm [Apical] Pulse Strength Pulse Strength [Apical] Respiratory Rate 15 15 Respiratory Effort / Characteristics Respiratory Depth Respiratory Pattern Blood Pressure 138/68 Blood Pressure [Right Arm] 146/70 H Blood Pressure Mean 90 Blood Pressure Mean [Right Arm] 95 Blood Pressure Position Blood Pressure Position [Right Arm] Pulse Oximetry 100 99 Oxygen Delivery Method Room Air Sepsis Recent Fever Within 48 Hours Sepsis New/Unexplained Change in Mental Status Sepsis Action Taken by Nursing 12/06/24 16:10 12/06/24 16:10 12/06/24 16:10 Temperature Temperature Source Pulse Rate Pulse Rate [Apical] Pulse Rate from SpO2 Sensor Pulse Rhythm Pulse Rhythm [Apical] Pulse Strength Pulse Strength [Apical] Respiratory Rate Respiratory Effort / Characteristics Respiratory Depth Respiratory Pattern Blood Pressure 145/70 H 145/70 H 145/70 H Blood Pressure [Right Arm] Blood Pressure Mean 105 105 105 Blood Pressure Mean [Right Arm] Blood Pressure Position Blood Pressure Position [Right Arm] Pulse Oximetry Oxygen Delivery Method Sepsis Recent Fever Within 48 Hours Sepsis New/Unexplained Change in Mental Status Sepsis Action Taken by Nursing 12/06/24 16:12 12/06/24 16:15 12/06/24 16:15 Temperature Temperature Source Pulse Rate 65 Pulse Rate [Apical] Pulse Rate from SpO2 Sensor 64 Pulse Rhythm Pulse Rhythm [Apical] Pulse Strength Pulse Strength [Apical] Respiratory Rate 11 L Respiratory Effort / Characteristics Respiratory Depth Respiratory Pattern Blood Pressure 139/75 139/75 Blood Pressure [Right Arm] Blood Pressure Mean 99 99 Blood Pressure Mean [Right Arm] Blood Pressure Position Blood Pressure Position [Right Arm] Pulse Oximetry 99 Oxygen Delivery Method Sepsis Recent Fever Within 48 Hours Sepsis New/Unexplained Change in Mental Status Sepsis Action Taken by Nursing 12/06/24 16:20 12/06/24 16:20 12/06/24 16:21 Temperature Temperature Source Pulse Rate 62 Pulse Rate [Apical] Pulse Rate from SpO2 Sensor Pulse Rhythm Pulse Rhythm [Apical] Pulse Strength Pulse Strength [Apical] Respiratory Rate Respiratory Effort / Characteristics Respiratory Depth Respiratory Pattern Blood Pressure 141/74 H 141/74 H Blood Pressure [Right Arm] Blood Pressure Mean 105 105 Blood Pressure Mean [Right Arm] Blood Pressure Position Blood Pressure Position [Right Arm] Pulse Oximetry Oxygen Delivery Method Sepsis Recent Fever Within 48 Hours Sepsis New/Unexplained Change in Mental Status Sepsis Action Taken by Nursing 12/06/24 16:21 12/06/24 16:27 12/06/24 16:27 Temperature Temperature Source Pulse Rate 60 69 Pulse Rate [Apical] Pulse Rate from SpO2 Sensor 61 69 Pulse Rhythm Pulse Rhythm [Apical] Pulse Strength Pulse Strength [Apical] Respiratory Rate 16 16 Respiratory Effort / Characteristics Respiratory Depth Respiratory Pattern Blood Pressure 152/48 H Blood Pressure [Right Arm] Blood Pressure Mean 100 Blood Pressure Mean [Right Arm] Blood Pressure Position Blood Pressure Position [Right Arm] Pulse Oximetry 98 99 Oxygen Delivery Method Sepsis Recent Fever Within 48 Hours Sepsis New/Unexplained Change in Mental Status Sepsis Action Taken by Nursing 12/06/24 16:27 12/06/24 16:30 12/06/24 16:35 Temperature Temperature Source Pulse Rate 66 Pulse Rate [Apical] Pulse Rate from SpO2 Sensor 66 Pulse Rhythm Pulse Rhythm [Apical] Pulse Strength Pulse Strength [Apical] Respiratory Rate 12 Respiratory Effort / Characteristics Respiratory Depth Respiratory Pattern Blood Pressure 152/48 H 138/96 Blood Pressure [Right Arm] Blood Pressure Mean 100 104 Blood Pressure Mean [Right Arm] Blood Pressure Position Blood Pressure Position [Right Arm] Pulse Oximetry 99 Oxygen Delivery Method Sepsis Recent Fever Within 48 Hours Sepsis New/Unexplained Change in Mental Status Sepsis Action Taken by Nursing 12/06/24 16:35 12/06/24 16:35 12/06/24 16:39 Temperature Temperature Source Pulse Rate 66 Pulse Rate [Apical] Pulse Rate from SpO2 Sensor 66 Pulse Rhythm Pulse Rhythm [Apical] Pulse Strength Pulse Strength [Apical] Respiratory Rate 11 L Respiratory Effort / Characteristics Respiratory Depth Respiratory Pattern Blood Pressure 138/96 138/96 Blood Pressure [Right Arm] Blood Pressure Mean 104 104 Blood Pressure Mean [Right Arm] Blood Pressure Position Blood Pressure Position [Right Arm] Pulse Oximetry 99 Oxygen Delivery Method Sepsis Recent Fever Within 48 Hours Sepsis New/Unexplained Change in Mental Status Sepsis Action Taken by Nursing 12/06/24 16:41 12/06/24 16:42 12/06/24 16:51 Temperature Temperature Source Pulse Rate 67 Pulse Rate [Apical] Pulse Rate from SpO2 Sensor 65 Pulse Rhythm Pulse Rhythm [Apical] Pulse Strength Pulse Strength [Apical] Respiratory Rate 13 Respiratory Effort / Characteristics Respiratory Depth Respiratory Pattern Blood Pressure 146/85 H 139/72 Blood Pressure [Right Arm] Blood Pressure Mean 100 95 Blood Pressure Mean [Right Arm] Blood Pressure Position Blood Pressure Position [Right Arm] Pulse Oximetry 98 Oxygen Delivery Method Sepsis Recent Fever Within 48 Hours Sepsis New/Unexplained Change in Mental Status Sepsis Action Taken by Nursing 12/06/24 16:51 Temperature Temperature Source Pulse Rate Pulse Rate [Apical] Pulse Rate from SpO2 Sensor Pulse Rhythm Pulse Rhythm [Apical] Pulse Strength Pulse Strength [Apical] Respiratory Rate Respiratory Effort / Characteristics Respiratory Depth Respiratory Pattern Blood Pressure 139/72 Blood Pressure [Right Arm] Blood Pressure Mean 95 Blood Pressure Mean [Right Arm] Blood Pressure Position Blood Pressure Position [Right Arm] Pulse Oximetry Oxygen Delivery Method Sepsis Recent Fever Within 48 Hours Sepsis New/Unexplained Change in Mental Status Sepsis Action Taken by Nursing Laboratory Data 12/06/24 14:26 12/06/24 14:26 Lab Results 12/06/24 12/06/24 12/06/24 Range/Units 14:20 14:26 14:29 WBC 4.46 L (4.8-10.8) K/ul RBC 3.45 L (4.70-6.10) M/uL Hgb 10.8 L (14.0-18.0) g/dl POC Hgb 10.5 L (14.0-18.0) g/dl Hct 32.2 L (42.0-52.0) % POC Hct 31 L (42-52) % MCV 93.3 (80.0-100.0) fL MCH 31.3 (25.0-34.0) pg MCHC 33.5 (32.0-36.0) g/dL RDW Std Deviation 41.7 (36.4-46.3) fL RDW Coeff of Preeti 12.2 (11.5-14.5) % Plt Count 141 (130-400) K/uL MPV 10.6 (9.4-12.4) fL Immature Gran % (Auto) 0.7 % Neut % (Auto) 61.8 % Lymph % (Auto) 27.1 % Potter % (Auto) 7.8 % Eos % (Auto) 2.2 % Baso % (Auto) 0.4 % Neut # (Auto) 2.75 (1.40-6.50) K/uL Lymph # (Auto) 1.21 (1.20-3.40) K/uL Potter # (Auto) 0.35 (0.11-0.59) K/uL Eos # (Auto) 0.10 (0.00-0.50) K/uL Baso # (Auto) 0.02 (0.00-0.20) K/uL Immature Gran # (Auto) 0.03 (0.01-0.20) K/uL PT 11.9 (9.0-12.0) Seconds INR 1.1 (0.9-1.1) APTT 26 (21-31) Seconds PTT Ratio 1.0 POC Sodium 140 (135-144) mmol/L Sodium 138 (136-145) mmol/L POC Potassium 4.7 (3.3-5.0) mmol/L Potassium 4.7 (3.5-5.1) mmol/L POC Chloride 102 (101-112) mmol/L Chloride 105 (98-107) mmol/L Carbon Dioxide 32 (21-32) mmol/L POC Total CO2 27 (24-31) mmol/L Anion Gap 1 L (3-11) POC Anion Gap 16.0 (16-25) mmol/L POC BUN 31 H (7-18) mg/dl BUN 33 H (6-23) mg/dl Creatinine 1.69 H (0.6-1.4) mg/dl POC Creatinine 1.8 H (0.6-1.3) mg/dl Est Cr Clr Drug Dosing 29.2 ml/min eGFR 40.03 BUN/Creatinine Ratio 19.5 (10-20) Glucose 116 H (70-99(Fasting)) mg/dl POC Glucose 115 H (70-99) mg/dl POC Glucose (other) 111 H (70-99) mg/dl Calcium 8.8 (8.6-10.3) mg/dl POC Ioniz Calcium Ann 1.23 (1.12-1.32) mmol/l Magnesium 2.1 (1.7-2.4) mg/dl Total Bilirubin 0.5 (0.2-1.0) mg/dl AST 15 (13-39) U/L ALT 7 (7-52) U/L Alkaline Phosphatase 43 (34-104) U/L Troponin I High Sens 10.2 (0-20) pg/ml Total Protein 5.8 L (6.0-8.3) gm/dl Albumin 3.6 (3.4-5.0) gm/dl Globulin 2.2 L (2.5-4.0) gm/dl Albumin/Globulin Ratio 1.6 (0.9-2) Administered Medications Nicardipine HCl 25 mg/ Sodium (Chloride) 250 mls @ 50 mls/hr IV .Q5H [facility]; Protocol Stop: 01/05/25 14:59 Last Admin: 12/06/24 15:02 Dose: 5 mg/hr, 50 mls/hr Documented By: SARA Co-signed By: VINI Discontinued Medications Tenecteplase 15 mg/ Syringe 3 mls @ 36 mls/min IV NOW ONE; Protocol Stop: 12/06/24 14:51 Last Admin: 12/06/24 14:48 Dose: 36 mls/min Documented By: VINI Co-signed By: DTT Ioversol (Optiray 320 125ml) 115 ml IV ONCE ONE Stop: 12/06/24 14:17 Last Admin: 12/06/24 14:17 Dose: 115 ml Documented By: MOIZ Labetalol HCl (Labetalol Hcl Iv 5 Mg/Ml 20ml) Confirm Administered Dose 5 mg IV .STK-MED ONE Stop: 12/06/24 14:23 Last Admin: 12/06/24 14:33 Dose: 5 mg Documented By: VINI Miscellaneous (Stat Iv/Im) 1 each N/A NOW STA Stop: 12/06/24 14:41 Last Admin: 12/06/24 14:48 Dose: 1 each Documented By: VINI Sodium Chloride (Sodium Chloride 0.9% 10ml Flush) 20 ml IV NOW STA Stop: 12/06/24 14:41 Last Admin: 12/06/24 14:48 Dose: 20 ml Documented By: VINI Imaging Data Radiologist's Impression: Head CT 12/06/24 14:10 CT OF THE HEAD WITHOUT CONTRAST CLINICAL HISTORY: neuro deficit, acute stroke suspected. Right facial droop. Right-sided weakness. COMPARISON STUDY: MRI of the brain March 27, 2022. TECHNIQUE: Helical axial images of the head were obtained without IV contrast. Automated exposure control was utilized for the study. A dose lowering technique was utilized adhering to the principles of ALARA. FINDINGS: No acute intracranial hemorrhage, midline shift or mass effect is present. The ventricular system is unremarkable. The basal cisterns are patent. No extra-axial collections are present. There are no findings to suggest acute dural sinus thrombosis or acute territorial infarct. There are postoperative findings and mild polypoid mucosal thickening within the sinuses. IMPRESSION: No acute intracranial findings. ACT 112: Negative or not required by law. Electronically signed by: Damion Burns M.D. 12/06/2024 2:22 PM Head CTA 12/06/24 14:10 CTA ANGIOGRAPHY OF THE HEAD CLINICAL HISTORY: neuro deficit, acute stroke suspected. Right facial droop. Right-sided weakness. COMPARISON STUDY: MRI of the brain March 27, 2022. TECHNIQUE: Helical axial images of the head were obtained following uneventful intravenous administration of 115 cc of Optiray. Sagittal and coronal reconstructions were viewed as well as maximal intensity projections on an independent 3-D workstation. Automated exposure control was utilized for the study. A dose lowering technique was utilized adhering to the principles of ALARA. CT DOSE: 1234.83 mGy.cm FINDINGS: No acute intracranial hemorrhage, midline shift or mass effect is present. Ventricular system is unremarkable. Basal cisterns are patent. There are no extra axial collections. There is moderate plaque within the bilateral cavernous carotids without stenosis. The right A2 segment is dominant. No vessel occlusion is identified within the anterior or posterior circulations. There is no intracranial aneurysm. IMPRESSION: No intracranial vessel occlusion identified. No intracranial aneurysm. ACT 112: Negative or not required by law. Electronically signed by: Damion Burns M.D. 12/06/2024 2:28 PM Neck CTA 12/06/24 14:10 CT ANGIOGRAPHY OF THE NECK WITH CONTRAST CLINICAL HISTORY: neuro deficit, acute stroke suspected COMPARISON STUDY: No previous studies for comparison. Technique: CT angiography of the carotid and vertebral arteries was obtained using Optiray and 3D reconstruction on an independent workstation. NASCET criteria was utilized. Automated exposure control was utilized for the study. A dose lowering technique was utilized adhering to the principles of ALARA. Findings: Visualized portions of the lung apices are unremarkable. There is no cervical lymphadenopathy. No cervical spine fractures are present. There is mild plaque within the carotid bifurcations without stenosis. The bilateral common carotid, cervical internal carotid and vertebral arteries are patent. There is no aneurysm or dissection within the neck. IMPRESSION: No stenosis or dissection within the bilateral common carotid, cervical internal carotid or vertebral arteries. ACT 112: Negative or not required by law. Electronically signed by: Damion Burns M.D. 12/06/2024 2:34 PM Discharge Plan Visit Data Chief Complaint: Stroke Alert ED Provider: Jena Dunne Discharge Problem: Stroke, Acute right hemiparesis Patient Disposition: Admitted As Inpatient Discharge Instructions Interventions: ED Discharge Assessment Last Done: 12/06/24 17:34
[2024-12-06 16:20] LABS: iSTAT Creatinine 1.8 mg/dl (0.6-1.3); iSTAT Hemoglobin 10.5 g/dl (14.0-18.0); iSTAT Ionized Calcium 1.23 mmol/l (1.12-1.32); iSTAT Potassium 4.7 mmol/L (3.3-5.0)
--- NOTE | 2024-12-06 16:53 | History & Physical Report ---
Date of Service December 06, 2024 Assessment & Plan (1) CVA (cerebral vascular accident): (2) Hypertension: (3) Dyslipidemia: (4) Parkinsonism: (5) Arteriosclerosis of coronary artery: (6) Anxiety: Plan CVA - s/p thrombolytics. ICU, BP control, MRI brain/repeat head CT, neuro consu lt, lipids/A1c, echo. 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 notes that he was in usual state of health until ~130 then fell - she heard him fall and call out - foudn him down on R side couldn't get up - after briefly trying to help him she realized he needed EMS and called 911. came to ER in window for thrombolytics - given. mild but noticable improvement R face, arm, leg weakness new onset maybe slightly better since TNK Allergies Allergy/AdvReac Type Severity Reaction Status Date / Time amlodipine AdvReac gum Verified 12/06/24 15:21 hyperplasia Home Medications Medication Instructions Recorded Confirmed Type citalopram 20 mg tablet (Celexa) 20 mg PO BID 07/19/19 12/06/24 History travoprost 0.004 % eye drops 1 drp OPB HS 12/31/21 12/06/24 History (Travatan Z) telmisartan 20 mg tablet 20 mg PO DAILY #90 tabs 06/01/24 12/06/24 Rx trazodone 100 mg tablet 100 mg PO HS 10/12/24 12/06/24 History brimonidine 0.2 %-timolol 0.5 % 1 drp OPB AMHS 12/06/24 12/06/24 History eye drops (Combigan) buspirone 15 mg tablet 15 mg PO BID 12/06/24 12/06/24 History Past Med/Surg History Problem List (Updated 12/06/24 @ 18:20 by Paul Rodríguez DO) Anxiety CVA (cerebral vascular accident) Bradycardia Syncope Hypertension (Chronic) Arteriosclerosis of coronary artery (Chronic) Dyslipidemia (Chronic) Stage 3b chronic kidney disease Kidney mass Complex renal cyst Benign prostatic hyperplasia with urinary obstruction (Acute) Parkinsonism Anemia Cervical myelopathy Cervical radiculopathy B12 deficiency IPMN (intraductal papillary mucinous neoplasm) MR report suggests IPMN, Last eval 02/2020 Anxiety with depression (Chronic) Followed by Psychiatry Osteoporosis (Chronic) Vitamin D deficiency (Chronic) Medical History Kidney lesion, algaaciq, bilateral Last MRI 02/2020 Organic impotence History of torn meniscus of left knee Lentigines Rhinitis Actinic keratosis Cervical radiculopathy Erosive osteoarthritis of hands, bilateral Osteoarthritis Glaucoma b/l Myocardial Infarction 09/2017 NSTEMI (non-ST elevated myocardial infarction) 10/2016 Surgical History History of colonoscopy (06/2019) 06/2019, lymphocytic colitis seen on Biopsy History of tooth extraction History of cataract surgery RT/LEFT History of cardiac cath 2017 (NO STENT) Family History Mother , age 56 Rheumatic heart disease Myocardial infarction Denies family history of Ovarian cancer Prostate cancer Diabetes Heart disease Kidney disease Breast cancer Lung cancer Colorectal cancer Hypertension Social History Smoking Status: Never smoker Second Hand Exposure: No ( A CHILD); Do You Dip or Chew Tobacco: No; Hx Alcohol Use: Yes Alcohol type: beer, wine and hard liquor Alcohol Intake Frequency: 2-3 x/Week Hx Substance Use: No Preferred Language: Khmer Communication Ability: Effective Visual Impairment: Limited Hearing Ability: Normal Crop Insurance Claims Adjuster Required: No Beliefs That Will Affect Care: None marital status: Current Living Situation: Spouse current occupational status: retired How many Children do You have: 2 Feels Safe at Home: Yes Childhood Exposure to Second-Hand Smoke: Yes Diet: regular caffeine: Yes (drinks coffee in mornings ) during the past year weight has: decreased > 10 lbs Dental Care, Regularly: Yes Physical Activity Frequency: 3-4 Times per Week Seatbelt Use: always Sunscreen Use: Yes Assistive Devices: Glasses Review of Systems Review of Systems: All systems reviewed & are unremarkable except as noted in HPI & below Physical Exam Physical Exam: gen aao pleasant but quiet laying in bed nad heent nc at mmm cardio reg no r/m/g lungs cta b/l no rr//w good effort R face droop but clear speech R arm ~0-1/5 strength R leg ~1-2/5 at foot - noticeably weak on opposite side as well appearing chronic (~3-4/5 on L side) skin without rahses pallor or icterus neuro w no focal deficits. abd soft nd nt. Results & Data Results & Data Vital Signs (Past 12 Hours) Vital Signs Temp Pulse Pulse Resp BP BP Pulse Ox 12/06/24 16:21 62 12/06/24 16:01 57 L 15 146/70 H 100 12/06/24 14:46 170/89 H 12/06/24 14:46 47 L 191/93 H 12/06/24 14:42 191/93 H 12/06/24 14:42 48 L 15 12/06/24 14:40 189/101 H 12/06/24 14:40 189/101 H 12/06/24 14:35 171/84 H 12/06/24 14:33 52 L 189/90 H 12/06/24 14:29 98.2 F 52 L 12 171/84 H 96 12/06/24 14:26 98.2 F 60 20 169/82 H 96 12/06/24 14:26 96 O2 Del Method 12/06/24 16:21 12/06/24 16:01 Room Air 12/06/24 14:46 12/06/24 14:46 12/06/24 14:42 12/06/24 14:42 12/06/24 14:40 12/06/24 14:40 12/06/24 14:35 12/06/24 14:33 12/06/24 14:29 Room Air 12/06/24 14:26 Room Air 12/06/24 14:26 Room Air Code Status & VTE Plan VTE Prophylaxis Plan VTE Prophylaxis will be ordered: Yes Reason for no VTE drug order: Contraindicated PG Care Time/CCT Total # of Minutes Spent Total Time Spent with Patient: Total time spent is greater than 50% in coordination of care (as documented) at patient's floor/unit and/or counseling patient: Coding Level of Care Code 79876 INT INP/OBS CARE MIN Diagnoses CVA (cerebral vascular accident) I63.9 Hypertension I10 Dyslipidemia E78.5 Parkinsonism G20 Arteriosclerosis of coronary artery I25.10 Anxiety F41.9
--- NOTE | 2024-12-06 19:47 | Critical Care Consultation ---
Date of Consultation December 06, 2024 Assessment & Plan (1) Acute right hemiparesis: (2) CVA (cerebral vascular accident): (3) Hypertension: Plan Reason Critically Ill: 1. Stroke like symptoms, CVA 2. Anxiety 3. Parkonsinism Neuro - RASS GOAL 0 Continue home Buspar, Celexa Hold trazodone CTH at 24 hours post TNK, sooner if clinical change MRI ordered Lipid panel, A1c PT/OT Neurology consult, appreciate recommendations Cardiac - Statin, home antihypertensives Wean Cardene for SBP < 180mmHg TTE with bubble study pending Respiratory - Room air SpO2 goal > 92% IS/Flutter HOB 30 with aspiration precautions GI - No acute concerns Diet: NPO pending nursing dysphagia screen SUP: N/A Bowel regimen: Miralax RENAL/LYTES - Kidney function near baseline. Cr 1.69 Replete electrolytes as indicated Ruggiero for urinary retention Maintain net even to net negative ENDO - No acute concerns BG 140-180 per SCCM guidelines ISS if needed while inpatient HEME - No acute concerns No ASA for first 24 hours ID - No acute concerns Culture PRN, trend fever curve and WBC MRSA negative LINES/TUBES/DRAINS - PIV x3 Ruggiero (Day #1) DVT PROPHYLAXIS - Held DISPOSITION - ICU Will address code status during 2100 neuro check. I have personally spent 30 minutes of critical care time in the direct management of this patient. This is a life/limb threatening event. This includes time spent evaluating patient, direct bedside care, chart review, placing orders, interpretation of diagnostic studies, discussion with consultants, patient, and family members, as well as other required patient management activities. This time is exclusive of all separately billable procedures, and teaching time and separate from and in addition to any other critical care service time. Thank you for allowing us to participate in the care of this patient. Please refer to my attending physician's documentation for any further recommendations. History of Present Illness Reason for Consultation: CVA Requesting Physician: Marcos Attending Physician: Paul Rodríguez DO History of Present Illness Mr. Javier Alexander (Bob) is a pleasant 84YOM with a history of anxiety, HTN/DLD, CAD, parkinsonism, chronic anemia, IPMN, BPH, CKDIII who presented to [facility] ED on the afternoon of 12/06/2024 after a fall around 1330. His found him down immediately after the fall. He was unable to use his R side. Initial NIHSS on arrival to ED is 9. Hypertensive and mildly bradycardic. Imaging was without LVO, there was some moderate plaque within the bilateral carotids. He received TNK at 1448. Started on nicardipine infusion and admitted to ICU for continuation of care. Patient seen in ICU 101. He is AAOx3. RUE 1/5, RLE 2/5. LUE 4/5, LLE 5/5. ROS + some anxiety, otherwise negative. Allergies Allergy/AdvReac Type Severity Reaction Status Date / Time amlodipine AdvReac gum Verified 12/06/24 15:21 hyperplasia Home Medications Medication Instructions Recorded Confirmed Type citalopram 20 mg tablet (Celexa) 20 mg PO BID 07/19/19 12/06/24 History travoprost 0.004 % eye drops 1 drp OPB HS 12/31/21 12/06/24 History (Travatan Z) telmisartan 20 mg tablet 20 mg PO DAILY #90 tabs 06/01/24 12/06/24 Rx trazodone 100 mg tablet 100 mg PO HS 10/12/24 12/06/24 History brimonidine 0.2 %-timolol 0.5 % 1 drp OPB AMHS 12/06/24 12/06/24 History eye drops (Combigan) buspirone 15 mg tablet 15 mg PO BID 12/06/24 12/06/24 History Patient History Medical History Kidney lesion, [place], bilateral Last MRI 02/2020 Organic impotence History of torn meniscus of left knee Lentigines Rhinitis Actinic keratosis Cervical radiculopathy Erosive osteoarthritis of hands, bilateral Osteoarthritis Glaucoma b/l Myocardial Infarction 09/2017 NSTEMI (non-ST elevated myocardial infarction) 10/2016 Surgical History History of colonoscopy (06/2019) 06/2019, lymphocytic colitis seen on Biopsy History of tooth extraction History of cataract surgery RT/LEFT History of cardiac cath 2017 (NO STENT) Family History Mother , age 56 Rheumatic heart disease Myocardial infarction Denies family history of Ovarian cancer Prostate cancer Diabetes Heart disease Kidney disease Breast cancer Lung cancer Colorectal cancer Hypertension Social History Smoking Status: Never smoker Second Hand Exposure: No ( A CHILD); Do You Dip or Chew Tobacco: No; Hx Alcohol Use: Yes Alcohol type: beer, wine and hard liquor Alcohol Intake Frequency: 2-3 x/Week Hx Substance Use: No Preferred Language: Hungarian Communication Ability: Effective Visual Impairment: Limited Hearing Ability: Normal Rooms Director Required: No Beliefs That Will Affect Care: None marital status: Current Living Situation: Spouse current occupational status: retired How many Children do You have: 2 Feels Safe at Home: Yes Childhood Exposure to Second-Hand Smoke: Yes Diet: regular caffeine: Yes (drinks coffee in mornings ) during the past year weight has: decreased > 10 lbs Dental Care, Regularly: Yes Physical Activity Frequency: 3-4 Times per Week Seatbelt Use: always Sunscreen Use: Yes Assistive Devices: Glasses Review of Systems Review of Systems: All systems reviewed & are unremarkable except as noted in Subjective Physical Exam Constitutional: + frail appearing, cooperative and comfo rtable; no acute distress Eyes: PERRL, conjunctivae normal, anicteric sclerae ENMT: external ear and nose normal, oropharynx normal Neck: trachea midline, no thyromegaly Respiratory: normal respiratory effort, lungs clear to auscultation Cardiovascular: RRR, no murmur, no edema Gastrointestinal (Abdomen): normal bowel sounds, soft, nontender, no hepatosplenomegaly Skin: no rashes, warm and dry Neurologic: Speech / Cognition: normal speech Cranial Nerves: PERRL; + tongue not midline RUE muscle movement noted. RLE able to lift from bed weakly. Sensory deficit R side. Genitourinary: Ruggiero in place draining light yellow urine Results & Data Results & Data Vital Signs (Past 12 Hours) Vital Signs Temp Pulse Pulse Resp BP BP BP 12/06/24 18:48 36.6 C 75 20 150/86 H 12/06/24 18:18 36.5 C 73 20 150/94 H 12/06/24 17:36 70 17 12/06/24 17:35 137/73 12/06/24 17:34 65 13 128/67 12/06/24 17:30 132/72 12/06/24 17:30 132/72 12/06/24 17:30 64 13 12/06/24 17:27 68 13 12/06/24 17:25 128/67 12/06/24 17:25 128/67 12/06/24 17:25 128/67 12/06/24 17:21 65 14 12/06/24 17:20 135/69 12/06/24 17:20 135/69 12/06/24 17:11 137/77 12/06/24 17:11 137/77 12/06/24 17:09 68 13 12/06/24 17:06 70 14 12/06/24 17:05 136/71 12/06/24 17:05 136/71 12/06/24 17:05 136/71 12/06/24 17:00 134/79 12/06/24 16:51 139/72 12/06/24 16:51 139/72 12/06/24 16:42 67 13 12/06/24 16:41 146/85 H 12/06/24 16:39 66 11 L 12/06/24 16:35 138/96 12/06/24 16:35 138/96 12/06/24 16:35 138/96 12/06/24 16:30 66 12 12/06/24 16:27 152/48 H 12/06/24 16:27 152/48 H 12/06/24 16:27 69 16 12/06/24 16:21 60 16 12/06/24 16:21 62 12/06/24 16:20 141/74 H 12/06/24 16:20 141/74 H 12/06/24 16:15 139/75 12/06/24 16:15 139/75 12/06/24 16:12 65 11 L 12/06/24 16:10 145/70 H 12/06/24 16:10 145/70 H 12/06/24 16:10 145/70 H 12/06/24 16:05 138/68 12/06/24 16:03 57 L 15 12/06/24 16:01 57 L 15 146/70 H 12/06/24 16:00 146/70 H 12/06/24 16:00 146/70 H 12/06/24 16:00 146/70 H 12/06/24 16:00 56 L 18 12/06/24 15:55 138/68 12/06/24 15:55 138/68 12/06/24 15:51 60 14 12/06/24 14:46 170/89 H 12/06/24 14:46 47 L 191/93 H 12/06/24 14:42 191/93 H 12/06/24 14:42 48 L 15 12/06/24 14:40 189/101 H 12/06/24 14:40 189/101 H 12/06/24 14:35 171/84 H 12/06/24 14:33 52 L 189/90 H 12/06/24 14:29 36.8 C 52 L 12 171/84 H 12/06/24 14:26 36.8 C 60 20 169/82 H 12/06/24 14:26 Pulse Ox O2 Del Method 12/06/24 18:48 97 Room Air 12/06/24 18:18 96 Room Air 12/06/24 17:36 98 12/06/24 17:35 12/06/24 17:34 97 Room Air 12/06/24 17:30 12/06/24 17:30 12/06/24 17:30 97 12/06/24 17:27 98 12/06/24 17:25 12/06/24 17:25 12/06/24 17:25 12/06/24 17:21 97 12/06/24 17:20 12/06/24 17:20 12/06/24 17:11 12/06/24 17:11 12/06/24 17:09 98 12/06/24 17:06 98 12/06/24 17:05 12/06/24 17:05 12/06/24 17:05 12/06/24 17:00 12/06/24 16:51 12/06/24 16:51 12/06/24 16:42 98 12/06/24 16:41 12/06/24 16:39 99 12/06/24 16:35 12/06/24 16:35 12/06/24 16:35 12/06/24 16:30 99 12/06/24 16:27 12/06/24 16:27 12/06/24 16:27 99 12/06/24 16:21 98 12/06/24 16:21 12/06/24 16:20 12/06/24 16:20 12/06/24 16:15 12/06/24 16:15 12/06/24 16:12 99 12/06/24 16:10 12/06/24 16:10 12/06/24 16:10 12/06/24 16:05 12/06/24 16:03 99 12/06/24 16:01 100 Room Air 12/06/24 16:00 12/06/24 16:00 12/06/24 16:00 12/06/24 16:00 99 12/06/24 15:55 12/06/24 15:55 12/06/24 15:51 99 12/06/24 14:46 12/06/24 14:46 12/06/24 14:42 12/06/24 14:42 12/06/24 14:40 12/06/24 14:40 12/06/24 14:35 12/06/24 14:33 12/06/24 14:29 96 Room Air 12/06/24 14:26 96 Room Air 12/06/24 14:26 96 Room Air Laboratory Results Reviewed Diagnostic Findings Reviewed Medications Administered See [facility] Coding Level of Care Code 05867 CRITICAL CARE 1ST 30-74M Diagnoses Acute right hemiparesis G81.91 CVA (cerebral vascular accident) I63.9 Hypertension I10 Time Spent (min) 30
[2024-12-06] MEDS: busPIRone 15 MG TAB PO SCH (21:00)
[2024-12-06] MEDS: CITALOPRAM 20 MG TAB PO SCH (21:00)
[2024-12-06] MEDS ORDERED: NON-FORMULARY MEDICATION (Brimonidine-Timolol [Combigan] 0.2-0.5 % drops) OPB SCH (21:00)
[2024-12-06] MEDS: BRIMONIDINE TARTRATE 0.2% 5ML OP SCH (21:00)
[2024-12-06] MEDS: TRAVOPROST Z 0.004% OPH SOLN 2.5 ML BTL OPB SCH (21:01)
[2024-12-06] MEDS: TIMOLOL MALEATE 0.5% OP SOLN 5 ML BTL OP SCH (21:01)
[2024-12-06] MEDS: traZODone HCL 100 MG TAB PO SCH (21:01)
[2024-12-06] MEDS: ICU Protocol for HYPERglycemia SCH (21:25)
--- NOTE | 2024-12-07 01:59 | Magnetic Resonance Report ---
EXAM: MR brain wo con CLINICAL HISTORY: stroke. TECHNIQUE: MRI of the brain was performed without contrast with multiplanar sequences obtained. COMPARISON: MRI brain 03/27/2022. FINDINGS: Brain Parenchyma: Denovo area of restricted diffusion is seen at the left lopez radiata region shortly extending inferiorly towards the posterior aspect of the left basal ganglia, impressive of a recent/acute ischemic infarction. No detectable foci of hemorrhagic transformation. Normal corona-white matter differentiation. No mass lesions identified. Aging brain changes are seen manifested as dilated subarachnoid spaces and lateral ventricles. Subtle flair hyperintense signal is seen at the periventricular white matter regions reflecting chronic small vessel disease. Posterior Fossa: Cerebellum and brainstem appear normal without evidence of mass lesions or signal abnormalities. Orbits and Skull Base: Orbits and skull base structures are normal without evidence of abnormalities. Incidentally noted a few mucous retention cysts at the paranasal sinuses. IMPRESSION: 1. Recent/Acute ischemic infarction at the left lopez radiata region with no evidence of hemorrhage. New. 2. Aging brain changes. 3. White matter chronic small vessel disease. [facility] ER was called at [phone] at 12:53 AM [facility], 12/06/2024, and OSBALDO Spring was informed regarding the presence of critical medical findings in the report Electronically signed by Landon Gonzalez 12-07-2024 01:59 AM
[2024-12-07 04:33] LABS: Basophils # (auto) 0.02 K/uL (0.00-0.20); Basophils % (auto) 0.2 %; Eosinophils # (auto) 0.02 K/uL (0.00-0.50); Eosinophils % (auto) 0.2 %; Hemoglobin 11.4 g/dl (14.0-18.0); Immature Granulocytes # (auto) 0.05 K/uL (0.01-0.20); Immature Granulocytes % (auto) 0.5 %; Lymphocytes % (auto) 15.4 %; Mean Corpuscular Hemoglobin 31.5 pg (25.0-34.0); Mean Corpuscular Hgb Conc 34.5 g/dL (32.0-36.0); Mean Corpuscular Volume 91.2 fL (80.0-100.0); Mean Platelet Volume 10.4 fL (9.4-12.4); Monocytes # (auto) 0.63 K/uL (0.11-0.59); Monocytes % (auto) 6.9 %; Neutrophils # (auto) 6.99 K/uL (1.40-6.50); Neutrophils % (auto) 76.8 %; Platelet Count 151 K/uL (130-400); RDW Coefficient of Variation 12.1 % (11.5-14.5); RDW Standard Deviation 40.4 fL (36.4-46.3); Red Blood Count 3.62 M/uL (4.70-6.10); White Blood Count 9.11 K/ul (4.8-10.8)
[2024-12-07 04:45] LABS: BUN Creatinine Ratio 19.6 (10-20); Calcium 9.2 mg/dl (8.6-10.3); Chol HDL Ratio 3.2 (0-5); Creatinine Clr Calc Pharmacy 29.2 ml/min; Phosphorus 3.6 mg/dl (2.5-4.9); Potassium 4.1 mmol/L (3.5-5.1)
--- NOTE | 2024-12-07 06:03 | Electrocardiogram Report ---
Test Reason : Blood Pressure : */* mmHG Vent. Rate : 54 BPM Atrial Rate : 54 BPM P-R Int : 196 ms QRS Dur : 84 ms QT Int : 454 ms P-R-T Axes : 78 32 49 degrees QTcB Int : 430 ms Sinus bradycardia Otherwise normal ECG When compared with ECG of 06-Apr-2024 14:37, No significant change was found Confirmed by Grant Knowles ([id number]) on 12/07/2024 6:03:01 AM Referred By: Confirmed By: Grant Knowles
[2024-12-07 08:34] LABS: Estimated Average Glucose 100 mg/dl; Hemoglobin A1C 5.1 % (4.5-5.6)
--- NOTE | 2024-12-07 09:00 | Critical Care Progress Note ---
Date of Service December 07, 2024 Assessment & Plan (1) Acute right hemiparesis: (2) CVA (cerebral vascular accident): (3) Hypertension: Plan Reason Critically Ill: 1. Stroke like symptoms, CVA 2. Anxiety 3. Parkonsinism Neuro - Continue home Buspar, Celexa Hold trazodone CTH at 24 hours post TNK, sooner if clinical change - Post TNKase CT at ~1450. MRI reviewed Lipid panel, A1c PT/OT to assess Neurology consult, appreciate recommendations. Cardiac - Statin, home antihypertensives Wean Cardene for SBP < 180mmHg CORPORATE SALES REPRESENTATIVE cleared for PO meds and diet. Start home antihypertensive Rx as soon as able. TTE with bubble study pending Respiratory - Room air SpO2 goal > 92% IS/Flutter HOB 30 with aspiration precautions GI - No acute concerns Diet: Progress diet per CORPORATE SALES REPRESENTATIVE recommendations. SUP: N/A Bowel regimen: Miralax RENAL/LYTES - CKD Replete electrolytes as indicated Ruggiero for urinary retention Maintain net even to net negative ENDO - No acute concerns BG 140-180 per SCCM guidelines ISS if needed while inpatient HEME - No acute concerns No ASA for first 24 hours ID - No acute concerns Culture PRN, trend fever curve and WBC MRSA negative LINES/TUBES/DRAINS - PIV x3 Ruggiero (Day #1) DVT PROPHYLAXIS - Held DISPOSITION - Plan for downgrade from ICU later this afternoon if f/u CT without new findings. Thank you for allowing us to participate in the care of this patient. Please refer to my attending physician's documentation for any further recommendations. Admission and Anticipated Discharge Date Admission Date: December 06, 2024 Subjective Patient seen and evaluated at bedside. He remains with RIGHT-sided deficits. No complaints of headaches, dizziness, lightheadedness, chest pain, peripheral weakness or numbness. Review of Systems Review of Systems: A complete 10 point review of systems was reviewed with the patient with pertinent positives and negatives as per history of present illness. All else were negative. Physical Exam Physical Exam: VITAL SIGNS - Vital signs and nursing notes were reviewed. GENERAL - 84-year-old male appearing his stated age who is in no acute distress. Communicates well with provider and answers questions appropriately. HEAD - Normocephalic, Atraumatic. EYES - PERRL with EOMI bilaterally. Sclera anicteric. EARS - No deformities of external structures noted on gross examination bilaterally. NOSE - Midline and without cyanosis. No epistaxis or purulent drainage noted. MOUTH/OROPHARYNX - Without perioral cyanosis. NECK - Neck with FROM. Supple to palpation. LUNGS - Chest wall symmetric without accessory muscle use, intercostals retractions, or central cyanosis. Normal vesicular breath sounds CTA B/L. No wheezes, rales, or rhonchi appreciated. CARDIAC - RRR with S1/S2. No murmur, rubs, or gallops appreciated. ABDOMEN - Abdominal contour flat without pulsations or visible masses. BS normoactive all four quadrants. No tenderness, palpable masses, hepatosplenomegaly, or ascites noted. EXTREMITIES -RIGHT sided paralysis noted to the upper lower extremities. No pretibial edema present. +3/5 radial and dorsalis pedis pulses palpated throughout. NEUROLOGIC - Slight RIGHT sided facial droop appreciated. PSYCH - A&Ox3 and cooperates fully with examiner. Pt is very pleasant and interacts well with examiner. Results & Data Results & Data Vital Signs (Past 12 Hours) Vital Signs Temp Pulse Resp BP Pulse Ox O2 Del Method 12/07/24 07:48 36.7 C 65 16 183/106 H 97 Room Air 12/07/24 06:48 73 14 168/87 H 97 Room Air 12/07/24 05:48 68 14 178/90 H 97 Room Air 12/07/24 04:48 70 14 176/96 H 97 Room Air 12/07/24 03:48 36.8 C 65 14 172/87 H 97 Room Air 12/07/24 02:48 70 14 158/90 H 97 Room Air 12/07/24 01:48 77 14 162/88 H 98 Room Air 12/07/24 00:48 67 14 175/94 H 97 Room Air 12/06/24 23:48 36.8 C 64 14 164/84 H 96 Room Air 12/06/24 22:48 72 15 159/87 H 95 Room Air 12/06/24 22:18 67 13 153/81 H 96 Room Air 12/06/24 21:48 72 14 140/84 96 Room Air 12/06/24 21:18 75 14 156/79 H 96 Room Air Coding Level of Care Code 60706 SUB INP/OBS CARE 2/35MIN Diagnoses Acute right hemiparesis G81.91 CVA (cerebral vascular accident) I63.9 Hypertension I10
[2024-12-07] MEDS: ATORVASTATIN 40 MG TAB PO SCH (09:19)
--- NOTE | 2024-12-07 09:31 | Neurology Consultation ---
Date of Consultation December 07, 2024 Assessment & Plan (1) Stroke: (2) Parkinsonism: Plan 84-year-old male with a history of mild Parkinson's disease, presenting with acute right hemiparesis, post TNK case, continues to exhibit a right hemiparesis, right upper extremity 0 out of 5, right lower extremity 3-4 out of 5, mild right lower facial droop. No aphasia, although speech is hypophonic and slowed. Patient has a mild left upper extremity resting tremor related to his parkinsonism. He has significant right lower extremity extensor tone, likely related to his acute stroke. CT angiography of the head and neck negative for significant vascular lesion. Patient's brain MRI does reveal an acute ischemic infarct within the left periventricular region extending to the posterior limb of the left internal capsule which is responsible for his acute right hemiparesis. The stroke is likely due to small vessel arteriosclerosis. Follow-up results of repeat noncontrast CT of the head per post TNKase protocol. If there is no evidence of hemorrhagic transformation, may start aspirin 81 mg/day post TNKase protocol. Transthoracic echocardiogram with bubble study. May allow for permissive hypertension per stroke protocol. Atorvastatin as ordered, goal LDL 70 or less. Consultations with PT/OT/speech therapy. Patient does not require symptomatic treatment of his parkinsonism at this time. May follow-up in neurology clinic with either Dr. Hampton or one of our MIGUEL ÁNGEL's in 2 to 3 weeks after discharge. History of Present Illness Reason for Consultation: stroke Requesting Physician: Marcos Attending Physician: Benitez Olivo History of Present Illness Patient is an 84-year-old male who is known to the neurology service, follows with Dr. Hampton for Parkinson's disease, last seen in clinic December 23, 2023, not prescribed symptomatic treatment for his parkinsonian tremor, patient also follows with psychiatry for anxiety and depression. He presented to the emergency department yesterday afternoon after a ground-level fall at home, found by his spouse, had acute right-sided weakness at that time, face arm and leg, unable to stand. CT of the head including CTA of the head and neck were unremarkable, no hemorrhage or acute process, no occlusive lesion. He did have a telestroke consultation and did receive TNKase. A brain MRI has revealed an acute ischemic infarct within the left periventricular region extending to the posterior limb of the internal capsule. No other areas of acute ischemic infarct. No evidence of acute hemorrhage. There is generalized atrophy and chronic small vessel ischemic disease. I independently review these images. This morning, the patient continues to exhibit a right hemiparesis, face arm and leg. He denies any vision loss, headache, or vertigo. Allergies Allergy/AdvReac Type Severity Reaction Status Date / Time amlodipine AdvReac gum Verified 12/06/24 15:21 hyperplasia Home Medications Medication Instructions Recorded Confirmed Type citalopram 20 mg tablet (Celexa) 20 mg PO BID 07/19/19 12/06/24 History travoprost 0.004 % eye drops 1 drp OPB HS 12/31/21 12/06/24 History (Travatan Z) telmisartan 20 mg tablet 20 mg PO DAILY #90 tabs 06/01/24 12/06/24 Rx trazodone 100 mg tablet 100 mg PO HS 10/12/24 12/06/24 History brimonidine 0.2 %-timolol 0.5 % 1 drp OPB [facility]HS 12/06/24 12/06/24 History eye drops (Combigan) buspirone 15 mg tablet 15 mg PO BID 12/06/24 12/06/24 History Patient History Medical History Kidney lesion, [place], bilateral Last MRI 02/2020 Organic impotence History of torn meniscus of left knee Lentigines Rhinitis Actinic keratosis Cervical radiculopathy Erosive osteoarthritis of hands, bilateral Osteoarthritis Glaucoma b/l Myocardial Infarction 09/2017 NSTEMI (non-ST elevated myocardial infarction) 10/2016 Surgical History History of colonoscopy (06/2019) 06/2019, lymphocytic colitis seen on Biopsy History of tooth extraction History of cataract surgery RT/LEFT History of cardiac cath 2017 (NO STENT) Family History Mother , age 56 Rheumatic heart disease Myocardial infarction Denies family history of Ovarian cancer Prostate cancer Diabetes Heart disease Kidney disease Breast cancer Lung cancer Colorectal cancer Hypertension Social History Smoking Status: Never smoker Second Hand Exposure: No ( A CHILD); Do You Dip or Chew Tobacco: No; Hx Alcohol Use: Yes Alcohol type: beer, wine and hard liquor Alcohol Intake Frequency: 2-3 x/Week Hx Substance Use: No Preferred Language: Turkish Communication Ability: Effective Visual Impairment: Limited Hearing Ability: Normal Software Testing Specialist Required: No Beliefs That Will Affect Care: None marital status: Current Living Situation: Spouse current occupational status: retired How many Children do You have: 2 Feels Safe at Home: Yes Childhood Exposure to Second-Hand Smoke: Yes Diet: regular caffeine: Yes (drinks coffee in mornings ) during the past year weight has: decreased > 10 lbs Dental Care, Regularly: Yes Physical Activity Frequency: 3-4 Times per Week Seatbelt Use: always Sunscreen Use: Yes Assistive Devices: Glasses Review of Systems Constitutional: no fever Eyes: no blind spots and no diplopia Ear, Nose, Mouth, Throat: no hearing loss Respiratory: no cough and no dyspnea Cardiovascular: no chest pain and no palpitations Gastrointestinal: no nausea and no vomiting Genitourinary: no urinary incontinence Musculoskeletal: no neck pain and no myalgia Integumentary: no rash and no lesions Neurologic: as per Subjective / HPI Psychiatric: no depression, no anxiety and no hallucinations Hematologic / Lymphatic: no easy bleeding and no easy bruising Exam (Neuro) Constitutional: well developed; no acute distress Eyes: normal visual forbes by confrontation, PERRL and EOM intact bilaterally; no nystagmus Neurologic: Oriented to:: Person, Place and Time Memory: Short Term Intact and Remote Intact Attention: Span Intact Speech Fluency: Slowed and Other (mild hypophonia); negative Dysarthria or Dysfluency Speech Aphasia: negative Aphasia Fund of Knowledge: Current Events, Past History and Vocabulary Cranial Nerves: Normal II, III, IV, , V, VIII, IX, X, XI and XII; Abnorm VII (mild right lower facial droop) Motor Strength: Hemiparesis (RUE 0/5, RLE 3- 4/5) Laterality: Right Hypertonicity: Arms Laterality: Right and Legs Laterality: Right Muscle Bulk/Involuntary Movements: Rest Tremor (Arm) Laterality: Left Sensation: Light Touch Intact, Pain/Temperature Intact and Proprioception Intact Coordination: Finger-Nose Abnormal and Heel-Hylton Abnormal Laterality: Right Deep Tendon Reflexes: Rt Triceps: 3+, Lt Triceps: 2+, Rt Biceps: 3+, Lt Biceps: 2+, Rt Brachioradialis: 3+, Lt Brachioradialis: 2+, Rt Patellar: 3+, Lt Patellar: 2+, Rt Ankle: 2+ and Lt Ankle: 1+ Special Tests: Babinski Present (right) Results & Data Vital Signs (Past 12 Hours) Vital Signs Temp Pulse Resp BP Pulse Ox O2 Del Method 12/07/24 08:48 69 14 180/99 H 97 Room Air 12/07/24 07:48 36.7 C 65 16 183/106 H 97 Room Air 12/07/24 06:48 73 14 168/87 H 97 Room Air 12/07/24 05:48 68 14 178/90 H 97 Room Air 12/07/24 04:48 70 14 176/96 H 97 Room Air 12/07/24 03:48 36.8 C 65 14 172/87 H 97 Room Air 12/07/24 02:48 70 14 158/90 H 97 Room Air 12/07/24 01:48 77 14 162/88 H 98 Room Air 12/07/24 00:48 67 14 175/94 H 97 Room Air 12/06/24 23:48 36.8 C 64 14 164/84 H 96 Room Air 12/06/24 22:48 72 15 159/87 H 95 Room Air 12/06/24 22:18 67 13 153/81 H 96 Room Air 12/06/24 21:48 72 14 140/84 96 Room Air 12/06/24 21:18 75 14 156/79 H 96 Room Air Laboratory Results 1 4, 0.0, platelet count 51, 140, potassium 4.1 BUN 30, creatinine 0.53, glucose 1 9, hemoglobin A1c 5.1, magnesium 2.0, AST 15, ALT 7, triglycerides 80, cholesterol 198, LDL 99, HDL 53 Diagnostic Findings Echocardiogram reveals sinus bradycardia, 54 bpm. Coding Level of Care Code 68731 INT INP/OBS CARE 3/75MIN Diagnoses Stroke I63.9 Parkinsonism G20 Time Spent (min) 80 Comment Total time includes patient contact, chart review, counseling, note preparation
[2024-12-07] MEDS: LOSARTAN POTASSIUM 25 MG TAB PO SCH (09:59)
--- NOTE | 2024-12-07 15:12 | CT Scan Report ---
CT OF THE HEAD WITHOUT CONTRAST CLINICAL HISTORY: Post TPA/TNK 24 hour COMPARISON STUDY: MRI of the brain December 07, 2024. Head CT December 06, 2024. CT DOSE: 1724.76 mGy.cm TECHNIQUE: Helical axial images of the head were obtained without IV contrast. Automated exposure con trol was utilized for the study. A dose lowering technique was utilized adhering to the principles o f ALARA. FINDINGS: This exam is mildly compromised by motion artifact. No acute intracranial hemorrhage, midli ne shift or mass effect is present. A 1.9 cm oval-shaped hypodense focus within the posterior left co gerardo radiata corresponds to the acute infarct on MRI of December 07, 2024. The ventricular system is unr emarkable. The basal cisterns are patent. There are no extra-axial collections. Postoperative finding s within the sinuses are again noted with mild polypoid mucosal thickening within the sinuses and shiloh al cavity. IMPRESSION: 1. No acute intracranial hemorrhage. 2. Expected evolution of a 1.9 cm acute infarct within the posterior left lopez radiata shown on MRI performed earlier today. ACT 112: Negative or not required by law. Electronically signed by: Damion Burns M.D. 12/07/2024 3:11 PM
[2024-12-07] MEDS: ASPIRIN 81 MG ECTAB PO SCH (16:53)
--- NOTE | 2024-12-07 18:08 | XCELERA ---
[id number] \\[email or web address]\[id number]
--- NOTE | 2024-12-07 19:01 | Hospitalist Progress Note ---
Date of Service December 07, 2024 Assessment & Plan (1) CVA (cerebral vascular accident): (2) Hypertension: (3) Dyslipidemia: (4) Parkinsonism: (5) Arteriosclerosis of coronary artery: (6) Anxiety: Plan CVA - s/p 24h thrombolytics. DG from ICU, BP control,appreciate neuro consult, added aspirin as no hemorrhagic conversion reviewed MRI 1.9 cm acute infarct within the posterior left lopez radiata shown on MRI performed earlier today. PT/OT eval and treat CAD - home meds anxiety - notes this is a major concern with him being in the hospital - reassurrance, supportive care, home meds weakness/deconditioning - as he improves acutely will need ongoing PT/OT and nutritional support *Hypertensive emergency Presents with high BP's requiring IV Labetalol. 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 GENERAL - 84-year-old male appearing his stated age who is in no acute distress. Communicates well with provider and answers questions appropriately. HEAD - Normocephalic, Atraumatic. PERRL with EOMI bilaterally. Sclera anicteric. Right facial droop NECK - Neck with FROM. Supple to palpation. LUNGS - Chest wall symmetric without accessory muscle use, intercostals retractions, or central cyanosis. Normal vesicular breath sounds CTA B/L. No wheezes, rales, or rhonchi appreciated. CARDIAC - RRR with S1/S2. No murmur, rubs, or gallops appreciated. EXTREMITIES -RIGHT sided paralysis noted to the upper lower extremities. Results & Data Results & Data Vital Signs (Past 12 Hours) Vital Signs Temp Pulse Pulse Resp BP BP Pulse Ox 12/07/24 17:00 82 18 158/90 H 99 12/07/24 16:09 82 15 153/84 H 100 12/07/24 14:48 36.7 C 89 18 158/93 H 99 12/07/24 13:48 36.7 C 93 H 18 145/80 H 99 12/07/24 12:48 36.7 C 88 18 150/84 H 99 12/07/24 11:48 36.7 C 91 H 19 142/77 H 97 12/07/24 10:48 36.8 C 89 17 130/79 99 12/07/24 09:48 36.7 C 82 16 190/106 H 97 12/07/24 08:48 69 14 180/99 H 97 12/07/24 08:00 12/07/24 08:00 12/07/24 07:48 36.7 C 65 16 183/106 H 97 O2 Del Method 12/07/24 17:00 12/07/24 16:09 12/07/24 14:48 Room Air 12/07/24 13:48 Room Air 12/07/24 12:48 Room Air 12/07/24 11:48 Room Air 12/07/24 10:48 Room Air 12/07/24 09:48 Room Air 12/07/24 08:48 Room Air 12/07/24 08:00 Room Air 12/07/24 08:00 Room Air 12/07/24 07:48 Room Air PG Care Time/CCT Total # of Minutes Spent Total Time Spent with Patient: Total time spent is greater than 50% in coordination of care (as documented) at patient's floor/unit and/or counseling patient: Coding Level of Care Code 84595 SUB INP/OBS CARE 3/50MIN Diagnoses CVA (cerebral vascular accident) I63.9 Hypertension I10 Dyslipidemia E78.5 Parkinsonism G20 Arteriosclerosis of coronary artery I25.10 Anxiety F41.9
[2024-12-08 05:24] LABS: Hemoglobin 11.7 g/dl (14.0-18.0); Mean Corpuscular Hemoglobin 31.4 pg (25.0-34.0); Mean Corpuscular Hgb Conc 34.4 g/dL (32.0-36.0); Mean Corpuscular Volume 91.2 fL (80.0-100.0); Mean Platelet Volume 10.7 fL (9.4-12.4); Platelet Count 137 K/uL (130-400); RDW Coefficient of Variation 12.1 % (11.5-14.5); RDW Standard Deviation 40.5 fL (36.4-46.3); Red Blood Count 3.73 M/uL (4.70-6.10); White Blood Count 11.91 K/ul (4.8-10.8)
[2024-12-08 05:35] LABS: Anion Gap 6 (3-11); BUN Creatinine Ratio 21.6 (10-20); Blood Urea Nitrogen 35 mg/dl (6-23); C Reactive Protein < 0.50 mg/dl (0-0.5); Calcium 9.2 mg/dl (8.6-10.3); Carbon Dioxide 31 mmol/L (21-32); Chloride 105 mmol/L (98-107); Creatinine Clr Calc Pharmacy 27.6 ml/min; Glucose 102 mg/dl (70-99(Fasting)); Potassium 3.6 mmol/L (3.5-5.1); Sodium 142 mmol/L (136-145)
[2024-12-08] MEDS: ENOXAPARIN INJ 30 MG/0.3 ML SYR SQ SCH (07:55)
--- NOTE | 2024-12-08 09:20 | Pharmacy Report ---
- Date of Service December 08, 2024 - Pharmacy CVA/TIA Medication Review Medications to Prevent Stroke handout has been added to the patients discharge packet. Antiplatelet(s) * Aspirin 81 mg PO daily Cholesterol * High intensity statin: atorvastatin 40 mg daily DVT Prophylaxis * Enoxaparin SQ Therapeutic Anticoagulation * No history of Afib/Aflutter noted Type 2 Diabetes * Patient does not have T2DM
--- NOTE | 2024-12-08 13:09 | Hospitalist Progress Note ---
Date of Service December 08, 2024 Assessment & Plan (1) CVA (cerebral vascular accident): Plan: Ischemic left CVA with dense right hemiplegia. He received thrombolytic therapy on admission. Fortunately [address] scans are negative for any evidence of bleeding. Continue OT, PT, speech therapy. (2) Hypertensive urgency: Plan: Present on admission. Treated with intravenous labetalol. Now resolved (3) Hypertension: Plan: Stable. Permissible systolic hypertension. (4) Dyslipidemia: Plan: Stable. Continue statin therapy (5) Parkinsonism: Plan: Supportive care. No current oral medications required (6) Chronic kidney disease, stage 3b: Plan: Stable. Monitor intake and output. Serial labs Plan Anticipate eventual discharge to [facility] for rehab within the next day or 2 Admission and Anticipated Discharge Date Admission Date: December 06, 2024 Subjective Awake and alert. Depressed affect. He continues to have a dense right hemiparesis. Fortunately, the second head CT scan was negative for any evidence of hemorrhage after he received thrombolytics for the acute left ischemic CVA. Aspirin has been started. Orders have been placed for transfer out of the ICU when a bed becomes available. OT PT and speech therapies have been ordered. He will need to go to [facility] for rehab within the next day or 2 Review of Systems 2 Review of Systems: Constitutionalno fever or chills ENTno blurred vision, no double vision, no epistaxis, no sore throat Respiratoryno cough, no wheezing, no shortness of breath Cardiacno palpitations, no chest pain, no syncope Kat nausea, vomiting, diarrhea, melena, hematochezia GUno urinary retention, no urinary incontinence, no dysuria, no hematuria Musculoskeletalno joint pain, no muscle tenderness Skinno bruising, no rashes, no pruritus Neuropersistent dense right hemiplegia. Psychdepressed affect Physical Exam 2 Physical Exam: General-alert and oriented x3, no fever, no chills HEENT-head atraumatic and normocephalic, pupils equal and reactive to light, extraocular muscles intact Neck-no lymphadenopathy or thyromegaly, trachea midline Chest-clear to auscultation. No rales, wheezing or rhonchi Cardiac-regular rate and rhythm, normal S1 and S2 Abdomen-normal bowel sounds, no hepatosplenomegaly Extremities-no cyanosis, clubbing, or edema Neuro-cranial nerves II through XII intact, persistent dense right hemiplegia. Psych-depressed affect Results & Data Results & Data Vital Signs (Past 12 Hours) Vital Signs Temp Pulse Pulse Resp BP BP Pulse Ox 12/08/24 12:23 36.6 C 65 16 168/90 H 95 12/08/24 09:04 144/82 H 12/08/24 08:12 67 15 95 12/08/24 08:00 59 L 12/08/24 08:00 36.7 C 12/08/24 08:00 12/08/24 07:51 194/93 H 12/08/24 04:00 36.8 C 70 17 174/94 H 97 O2 Del Method 12/08/24 12:23 Room Air 12/08/24 09:04 12/08/24 08:12 Room Air 12/08/24 08:00 12/08/24 08:00 12/08/24 08:00 Room Air 12/08/24 07:51 12/08/24 04:00 Room Air Laboratory Results 12/08/24 04:23 12/08/24 04:23 PG Care Time/CCT Total # of Minutes Spent Total Time Spent with Patient: Total time spent is greater than 50% in coordination of care (as documented) at patient's floor/unit and/or counseling patient: Coding Level of Care Code 07450 SUB INP/OBS CARE 3/50MIN Diagnoses CVA (cerebral vascular accident) I63.9 Hypertensive urgency I16.0 Hypertension I10 Dyslipidemia E78.5 Parkinsonism G20 Chronic kidney disease, stage 3b N18.32
--- NOTE | 2024-12-09 12:49 | Hospitalist Progress Note ---
Date of Service December 09, 2024 Assessment & Plan (1) CVA (cerebral vascular accident): Plan: Ischemic left CVA with dense right hemiplegia. He received thrombolytic therapy on admission. Fortunately [address] scans are negative for any evidence of bleeding. Continue OT, PT, speech therapy. (2) Hypertensive urgency: Plan: Present on admission. Treated with intravenous labetalol. Now resolved (3) Hypertension: Plan: Stable. Permissible systolic hypertension. (4) Dyslipidemia: Plan: Stable. Continue statin therapy (5) Parkinsonism: Plan: Supportive care. No current oral medications required (6) Chronic kidney disease, stage 3b: Plan: Stable. Monitor intake and output. Serial labs Plan discharge to [facility] for rehab tomorrow, December 10 Admission and Anticipated Discharge Date Admission Date: December 06, 2024 Subjective No new issues. He is medically stable. is at the bedside. He has been improved for discharge to [facility]. Hopefully this will occur tomorrow, December 10 Review of Systems 2 Review of Systems: Constitutionalno fever or chills ENTno blurred vision, no double vision, no epistaxis, no sore throat Respiratoryno cough, no wheezing, no shortness of breath Cardiacno palpitations, no chest pain, no syncope Kat nausea, vomiting, diarrhea, melena, hematochezia GUno urinary retention, no urinary incontinence, no dysuria, no hematuria Musculoskeletalno joint pain, no muscle tenderness Skinno bruising, no rashes, no pruritus Neuropersistent dense right hemiplegia. Psychdepressed affect Physical Exam 2 Physical Exam: General-alert and oriented x3, no fever, no chills HEENT-head atraumatic and normocephalic, pupils equal and reactive to light, extraocular muscles intact Neck-no lymphadenopathy or thyromegaly, trachea midline Chest-clear to auscultation. No rales, wheezing or rhonchi Cardiac-regular rate and rhythm, normal S1 and S2 Abdomen-normal bowel sounds, no hepatosplenomegaly Extremities-no cyanosis, clubbing, or edema Neuro-cranial nerves II through XII intact, persistent dense right hemiplegia. Psych-depressed affect Results & Data Results & Data Vital Signs (Past 12 Hours) Vital Signs Temp Pulse Resp BP Pulse Ox O2 Del Method 12/09/24 11:12 36.6 C 52 L 20 113/71 96 Room Air 12/09/24 10:21 62 12/09/24 08:27 36.5 C 56 L 20 154/81 H 94 Room Air 12/09/24 07:40 Room Air 12/09/24 04:36 36.3 C L 68 18 102/65 92 Room Air Laboratory Results 12/08/24 04:23 12/08/24 04:23 PG Care Time/CCT Total # of Minutes Spent Total Time Spent with Patient: Total time spent is greater than 50% in coordination of care (as documented) at patient's floor/unit and/or counseling patient: Coding Level of Care Code 49206 SUB INP/OBS CARE 2/35MIN Diagnoses CVA (cerebral vascular accident) I63.9 Hypertensive urgency I16.0 Hypertension I10 Dyslipidemia E78.5 Parkinsonism G20 Chronic kidney disease, stage 3b N18.32
[2024-12-10 08:38] VITALS: TEMP 97.7
--- NOTE | 2024-12-10 10:13 | Discharge Summary ---
Date of Service December 10, 2024 Admission HPI Per Admitting Provider Patient is a very pleasant 84yo male accompanied by . notes that he was in usual state of health until ~130 then fell - she heard him fall and call out - foudn him down on R side couldn't get up - after briefly trying to help him she realized he needed EMS and called 911. came to ER in window for thrombolytics - given. mild but noticable improvement R face, arm, leg weakness new onset maybe slightly better since TNK Admission Exam (Per Admitting) Constitutional The patient is awake, alert and oriented 3, well developed and well nourished, normocephalic and atraumatic, lying in bed and in no acute distress. HEENT--PERRL, EOMI, mucous membranes and oropharynx mildly dry Neck--supple. No JVD. No bruits. Thyroid normal, trachea midline, no adenopathy. Heart--normal S1 and S2. No murmurs, rubs or gallops. Lungs--clear bilaterally, no respiratory distress, no accessory muscle use. Abdomen--normal bowel sounds and soft. Extremities--no cyanosis or clubbing. No edema. Dermatologic--normal skin turgor, normal color, no abnormal lymph nodes, no rash. Neurologic--right hemiparesis Rheumatologic--normal range of motion. Psychiatric--normal affect. Discharge Data Consultations 12/06/24 16:42 ED Decision to Admit Stat 12/06/24 18:10 Consult [employer] Routine Consult Neurology Routine Hospital Course (1) CVA (cerebral vascular accident): Ischemic left CVA with dense right hemiplegia. He received thrombolytic therapy on admission. Fortunately [address] scans are negative for any evidence of bleeding. Continue OT, PT, speech therapy. Discharge on PO ASA 81mg daily, Atorvastatin 40mg daily (2) Hypertensive urgency: Present on admission. Treated with intravenous labetalol. Now resolved (3) Hypertension: Stable. Resume home meds after permissive HTN (4) Dyslipidemia: Stable. Continue statin therapy (5) Parkinsonism: Supportive care. No current oral medications required (6) Chronic kidney disease, stage 3b: Stable. Monitor intake and output. Serial labs Plan discharge to [facility] for rehab , December 10 Coding Level of Care Code 10896 INP/OBS DISCH >30 MIN Diagnoses CVA (cerebral vascular accident) I63.9 Hypertensive urgency I16.0 Hypertension I10 Dyslipidemia E78.5 Parkinsonism G20 Chronic kidney disease, stage 3b N18.32 Time Spent (min) 35
[2024-12-10 11:51] VITALS: BP 113/67; RESP 14; O2SAT 95
[2024-12-10 14:54] VITALS: PULSE 63
== END 2024-12-10 15:15 | DRG 62 ==
LOC: ED 14:09 → 1E 16:52 → SUATTDRO 16:52 → 1E 17:34 → 2N 12-08 13:38

== ENCOUNTER 2025-02-05 08:33 | Inpatient (IN) ==
--- NOTE | 2025-02-05 08:54 | Emergency Department Note ---
Impression & Plan SOB (shortness of breath), Pneumonia, Leukocytosis, Cough, Debilitated, History of CVA (cerebrovascular accident) ED Provider Note NAME: RACQUEL HERCULES AGE: 84 SEX: M : 1940 ARRIVES VIA: Ambulance INFORMANT: [Patient][] ED PROVIDER(S): [Elvin Escalante MD] CHIEF COMPLAINT: Illness HISTORY OF PRESENT ILLNESS: Patient is an 84-year-old male with a history of previous CVA. Presents with several days of increased chest congestion and cough. He has felt short of breath, especially at night. He has been weak. Today, the cough seemed worse and he was brought by ambulance for evaluation. He coughs a lot when he tries to drink. There has been no fever. No vomiting or diarrhea, no chest pain. He has had some recent exposure to others but no one that was known to be sick. He denies underlying lung disease. PMHx/PSHx/Social Hx: See Below PHYSICAL EXAM: GENERAL: Patient is in no acute distress. Fairly thin. HEENT: No acute trauma, normocephalic atraumatic, mucous membranes moist, no nasal congestion. NECK: No stridor, no adenopathy, no meningismus, trachea is midline. LUNGS: Clear to auscultation bilaterally, no wheeze, no rhonchi, breath sounds equal. Breath sounds diminished bilaterally. HEART: 2/6 systolic murmur, occasional extra beats heard. Normal rate. ABDOMEN: Soft, nontender, no peritonitis. EXTREMITIES: No cyanosis, full range of motion of all the joints without pain or difficulty. NEUROLOGIC: Awake and alert. Right-sided deficits noted. SKIN: No jaundice, no diaphoresis. DIFFERENTIAL DIAGNOSIS: Bronchitis or pneumonia, viral illness, CHF, anemia, electrolyte imbalance, dysrhythmia or MN, among others. EMERGENCY DEPARTMENT PROCEDURES: MEDICAL DECISION MAKING: There is a mild leukocytosis, this certainly could be consistent with infection. The patient did have an anemia although, this was baseline looking back at previous testing. There was a normal platelet count. No bandemia. No coagulopathy. VBG showed some very subtle CO2 retention, no acidosis. There was no renal failure or significant electrolyte abnormality. Lactic acid level was not elevated making sepsis less likely. No concerning liver enzyme elevation. ECG showed a sinus rhythm, no obvious ST elevation. Cardiac enzyme testing x 1 was not consistent with acute cardiac injury. Chest x-ray showed a potential left lower lung pneumonia although, it was quite subtle. No CHF. There was no pneumothorax. BNP was elevated consistent with potential fluid overload versus some cardiac strain. Respiratory bio fire was negative. On exam, patient had some diminished breath sounds bilaterally. He was not hypoxic. Patient received IV ceftriaxone as antibiotic coverage. He was given a DuoNeb. The patient has a history of CVA. He is nonambulatory. As per his family, he has become quite weak and has become too much for them to care for in his current condition. In short, the patient appears to have an early pneumonia. Possibly aspiration pneumonia as he, apparently, coughs a lot when he drinks. I did speak with the patient and case management, the on-call hospitalist was consulted. Given the circumstances, admission is warranted. Prior/Outside records/notes reviewed: Today's EMS notes describing his presentation and transport to this hospital. ECG per my interpretation: Indication was shortness of breath. The ECG shows a sinus rhythm with some PACs. The rate was 88. There was diffuse nonspecific ST change and some baseline artifact. There is a potential old septal infarct. There was no acute ST elevation, no PVCs. The QTc was 469. Continuous Cardiac Monitoring per my interpretation: An order was placed for continuous cardiac monitoring. The monitor shows a rate of 73 with sinus rhythm with PACs. Imaging/x-ray results per my interpretation: Chest x-ray shows a potential early left lower lung infiltrate. No pneumothorax or CHF. Chronic Medical/Social conditions affecting care: Advanced age. Care/Management discussed with: Case management, the on-call hospitalist. Level of care consideration(s): After review of the information above and other included data: --I believe the patient requires escalation of care to admission DISPOSITION: Admission Past Med/Surg History Problem List (Updated 02/05/25 @ 14:33 by Elvin Escalante MD) History of CVA (cerebrovascular accident) (Acute) Debilitated (Acute) Cough (Acute) Leukocytosis (Acute) Pneumonia (Acute) SOB (shortness of breath) (Acute) Insomnia Hospital discharge follow-up Chronic kidney disease, stage 3b Hypertensive urgency Acute right hemiparesis (Acute) Stroke (Acute) Anxiety CVA (cerebral vascular accident) Bradycardia Syncope Hypertension (Chronic) Arteriosclerosis of coronary artery (Chronic) Dyslipidemia (Chronic) Stage 3b chronic kidney disease Kidney mass Complex renal cyst Benign prostatic hyperplasia with urinary obstruction (Acute) Parkinsonism Anemia Cervical myelopathy Cervical radiculopathy B12 deficiency IPMN (intraductal papillary mucinous neoplasm) MR report suggests IPMN, Last eval 02/2020 Anxiety with depression (Chronic) Followed by Psychiatry Osteoporosis (Chronic) Vitamin D deficiency (Chronic) Medical History Kidney lesion, [place], bilateral Last MRI 02/2020 Organic impotence History of torn meniscus of left knee Lentigines Rhinitis Actinic keratosis Cervical radiculopathy Erosive osteoarthritis of hands, bilateral Osteoarthritis Glaucoma b/l Myocardial Infarction 09/2017 NSTEMI (non-ST elevated myocardial infarction) 10/2016 Surgical History History of colonoscopy (06/2019) 06/2019, lymphocytic colitis seen on Biopsy History of tooth extraction History of cataract surgery RT/LEFT History of cardiac cath 2017 (NO STENT) Family History Mother , age 56 Rheumatic heart disease Myocardial infarction Denies family history of Ovarian cancer Prostate cancer Diabetes Heart disease Kidney disease Breast cancer Lung cancer Colorectal cancer Hypertension Social History Smoking Status: Never smoker Second Hand Exposure: No ( A CHILD); Do You Dip or Chew Tobacco: No; Hx Alcohol Use: Yes Alcohol type: beer, wine and hard liquor Alcohol Intake Frequency: 2-3 x/Week Hx Substance Use: No Preferred Language: Indian Communication Ability: Effective Visual Impairment: Limited Hearing Ability: Normal Supervisor Soldering Required: No Beliefs That Will Affect Care: None marital status: Current Living Situation: Spouse current occupational status: retired How many Children do You have: 2 Feels Safe at Home: Yes Childhood Exposure to Second-Hand Smoke: Yes Diet: regular caffeine: Yes (drinks coffee in mornings ) during the past year weight has: decreased > 10 lbs Dental Care, Regularly: Yes Physical Activity Frequency: 3-4 Times per Week Seatbelt Use: always Sunscreen Use: Yes Assistive Devices: None Allergies Allergies Allergy/AdvReac Type Severity Reaction Status Date / Time amlodipine AdvReac gum Verified 12/06/24 15:21 hyperplasia Home Meds Home Medications Medication Instructions Recorded Confirmed citalopram 20 mg tablet (Celexa) 20 mg PO BID 07/19/19 02/05/25 travoprost 0.004 % eye drops 1 drp OPB HS 12/31/21 02/05/25 (Travatan Z) brimonidine 0.2 %-timolol 0.5 % 1 drp OPB AMHS 12/06/24 02/05/25 eye drops (Combigan) aspirin 81 mg tablet,delayed 81 mg PO DAILY 01/17/25 02/05/25 release buspirone 5 mg tablet 5 mg PO BID 01/17/25 02/05/25 quetiapine 25 mg tablet (Seroquel) 50 mg PO DAILY 01/17/25 02/05/25 carbidopa 25 mg-levodopa 100 mg 1 tab PO TID 02/05/25 02/05/25 tablet docusate sodium 100 mg capsule 100 mg PO BID 02/05/25 02/05/25 Previous Rx's Medication Instructions Recorded atorvastatin 40 mg tablet 40 mg PO DAILY #90 tabs 01/17/25 Results & Data (ED) Vital Signs Vital Signs - 24 hr 02/05/25 08:35 02/05/25 08:40 02/05/25 08:49 Temperature 36.8 C Temperature Source Oral Pulse Rate 73 70 73 Pulse Rate from SpO2 Sensor Respiratory Rate 20 20 Respiratory Effort / Characteristics Non-Labored Spontaneous Respiratory Depth Normal Respiratory Pattern Regular Blood Pressure 142/78 H Blood Pressure Mean 99 Blood Pressure Position Semi-fowlers Pulse Oximetry 95 95 Oxygen Delivery Method Room Air Room Air Sepsis Recent Fever Within 48 Hours No Sepsis New/Unexplained Change in Mental Status No Sepsis Action Taken by Nursing No Action Required 02/05/25 09:03 02/05/25 09:36 02/05/25 10:09 Temperature Temperature Source Pulse Rate 74 75 72 Pulse Rate from SpO2 Sensor 80 72 72 Respiratory Rate 21 21 21 Respiratory Effort / Characteristics Respiratory Depth Respiratory Pattern Blood Pressure Blood Pressure Mean Blood Pressure Position Pulse Oximetry 95 100 95 Oxygen Delivery Method Sepsis Recent Fever Within 48 Hours Sepsis New/Unexplained Change in Mental Status Sepsis Action Taken by Nursing 02/05/25 10:45 02/05/25 11:06 Temperature Temperature Source Pulse Rate 71 74 Pulse Rate from SpO2 Sensor 72 75 Respiratory Rate 22 21 Respiratory Effort / Characteristics Respiratory Depth Respiratory Pattern Blood Pressure Blood Pressure Mean Blood Pressure Position Pulse Oximetry 93 92 Oxygen Delivery Method Sepsis Recent Fever Within 48 Hours Sepsis New/Unexplained Change in Mental Status Sepsis Action Taken by Skilled Nursing Medications Current Medication List: was personally reviewed by me Laboratory Data Attestation: I reviewed the patient's lab results. 02/05/25 08:45 02/05/25 08:45 Lab Results 02/05/25 02/05/25 02/05/25 Range/Units 08:45 08:56 09:24 WBC 13.68 H (4.8-10.8) K/ul RBC 3.68 L (4.70-6.10) M/uL Hgb 11.4 L (14.0-18.0) g/dl Hct 34.3 L (42.0-52.0) % MCV 93.2 (80.0-100.0) fL MCH 31.0 (25.0-34.0) pg MCHC 33.2 (32.0-36.0) g/dL RDW Std Deviation 43.6 (36.4-46.3) fL RDW Coeff of Preeti 12.9 (11.5-14.5) % Plt Count 222 (130-400) K/uL MPV 9.6 (9.4-12.4) fL Immature Gran % (Auto) 0.6 % Neut % (Auto) 80.8 % Lymph % (Auto) 11.1 % [place] % (Auto) 6.1 % Eos % (Auto) 1.2 % Baso % (Auto) 0.2 % Neut # (Auto) 11.06 H (1.40-6.50) K/uL Lymph # (Auto) 1.52 (1.20-3.40) K/uL [place] # (Auto) 0.83 H (0.11-0.59) K/uL Eos # (Auto) 0.16 (0.00-0.50) K/uL Baso # (Auto) 0.03 (0.00-0.20) K/uL Immature Gran # (Auto) 0.08 (0.01-0.20) K/uL PT 11.7 (9.0-12.0) Seconds INR 1.1 (0.9-1.1) APTT 27 (21-31) Seconds PTT Ratio 1.0 VBG pH 7.38 (7.36-7.41) VBG pCO2 51 H (38-50) mmHg VBG pO2 < 20 mmHg VBG HCO3 30 mmol/L VBG O2 Saturation < 60.0 % VBG Base Excess 4.1 mEq/L Sodium 142 (136-145) mmol/L Potassium 4.4 (3.5-5.1) mmol/L Chloride 105 (98-107) mmol/L Carbon Dioxide 31 (21-32) mmol/L Anion Gap 6 (3-11) BUN 27 H (6-23) mg/dl Creatinine 1.37 (0.6-1.4) mg/dl Est Cr Clr Drug Dosing 31.2 ml/min eGFR 51.50 BUN/Creatinine Ratio 19.7 (10-20) Glucose 116 H (70-99(Fasting)) mg/dl Lactate 1.0 (0.4-2.0) mmol/L Calcium 9.3 (8.6-10.3) mg/dl Magnesium 1.8 (1.7-2.4) mg/dl Total Bilirubin 0.6 (0.2-1.0) mg/dl AST 16 (13-39) U/L ALT < 3 L (7-52) U/L Alkaline Phosphatase 67 (34-104) U/L Troponin I High Sens 12.5 (0-20) pg/ml B-Natriuretic Peptide 121 H (0-100) pg/ml Total Protein 6.9 (6.0-8.3) gm/dl Albumin 3.5 (3.4-5.0) gm/dl Globulin 3.4 (2.5-4.0) gm/dl Albumin/Globulin Ratio 1.0 (0.9-2) Adenovirus (PCR) Not Detected (NotDetected) B. pertussis DNA (PCR) Not Detected (NotDetected) B.parapertussis DNA PCR Not Detected (NotDetected) C. pneumoniae DNA (PCR) Not Detected (NotDetected) Coronavirus OC43 (PCR) Not Detected (NotDetected) Coronavirus HKU1 (PCR) Not Detected (NotDetected) Coronavirus 229E (PCR) Not Detected (NotDetected) SARS-CoV-2 (PCR) Not Detected (NotDetected) Coronavirus NL63 (PCR) Not Detected (NotDetected) Human Metapneumovir PCR Not Detected (NotDetected) Influenza Type A (PCR) Not Detected (NotDetected) Influenza Type B (PCR) Not Detected (NotDetected) M. pneumoniae (PCR) Not Detected (NotDetected) Parainfluenza 1 (PCR) Not Detected (NotDetected) Parainfluenza 2 (PCR) Not Detected (NotDetected) Parainfluenza 3 (PCR) Not Detected (NotDetected) Parainfluenza 4 (PCR) Not Detected (NotDetected) RSV (PCR) Not Detected (NotDetected) Entero/Rhino (PCR) Not Detected (NotDetected) Administered Medications Discontinued Medications Albuterol (Albut/Ipratrop 3mg/0.5mg Neb 3 Ml Vial) 3 ml NEB NOW STA; Protocol Stop: 02/05/25 08:51 Last Admin: 02/05/25 09:26 Dose: 3 ml Documented By: CEF Ceftriaxone Sodium (Rocephin) 2,000 mg in 50 mls @ 100 mls/hr IV NOW STA Stop: 02/05/25 10:22 Last Infusion: 02/05/25 11:24 Dose: Infused Documented By: Admin: 02/05/25 10:05 Dose: 100 mls/hr Documented By: CEF Imaging Data Radiologist's Impression: Chest X-Ray 02/05/25 08:38 XR chest 1V portable CLINICAL HISTORY: Dyspnea COMPARISON STUDY: 11/11/2016 FINDINGS: Heart size and pulmonary vasculature are normal. No effusion, consolidation, or pneumothorax. IMPRESSION: No acute findings. ACT 112: Negative or not required by law. Electronically signed by: Jorge Reed M.D. 02/05/2025 9:11 AM Discharge Plan Visit Data Chief Complaint: Illness Stated Complaint: COUGH, CONGESTION ED Provider: Elvin Escalante Discharge Problem: SOB (shortness of breath), Pneumonia, Leukocytosis, Cough, Debilitated, History of CVA (cerebrovascular accident) Patient Disposition: Admitted As Inpatient Condition: Fair Discharge Instructions Interventions: ED Discharge Assessment Last Done: 02/05/25 14:15 Discharge Problem: Pneumonia Qualifiers: Pneumonia type: due to unspecified organism Laterality: left Lung location: l ower lobe of lung Qualified Code(s): J18.9 - Pneumonia, unspecified organism Leukocytosis Qualifiers: Leukocytosis type: unspecified Qualified Code(s): D72.829 - Elevated white blood cell count, unspecified Cough Qualifiers: Cough type: acute Qualified Code(s): R05.1 - Acute cough
[2025-02-05 09:06] LABS: Basophils # (auto) 0.03 K/uL (0.00-0.20); Basophils % (auto) 0.2 %; Eosinophils # (auto) 0.16 K/uL (0.00-0.50); Eosinophils % (auto) 1.2 %; Hematocrit (blood only) 34.3 % (42.0-52.0); Hemoglobin 11.4 g/dl (14.0-18.0); Immature Granulocytes # (auto) 0.08 K/uL (0.01-0.20); Immature Granulocytes % (auto) 0.6 %; Lymphocytes # (auto) 1.52 K/uL (1.20-3.40); Lymphocytes % (auto) 11.1 %; Mean Corpuscular Hgb Conc 33.2 g/dL (32.0-36.0); Mean Corpuscular Volume 93.2 fL (80.0-100.0); Mean Platelet Volume 9.6 fL (9.4-12.4); Monocytes # (auto) 0.83 K/uL (0.11-0.59); Monocytes % (auto) 6.1 %; Neutrophils # (auto) 11.06 K/uL (1.40-6.50); Neutrophils % (auto) 80.8 %; Platelet Count 222 K/uL (130-400); RDW Coefficient of Variation 12.9 % (11.5-14.5); RDW Standard Deviation 43.6 fL (36.4-46.3); Red Blood Count 3.68 M/uL (4.70-6.10); White Blood Count 13.68 K/ul (4.8-10.8)
--- NOTE | 2025-02-05 09:13 | XRay Report ---
XR chest 1V portable CLINICAL HISTORY: Dyspnea COMPARISON STUDY: 11/11/2016 FINDINGS: Heart size and pulmonary vasculature are normal. No effusion, consolidation, or pneumothora x. IMPRESSION: No acute findings. ACT 112: Negative or not required by law. Electronically signed by: Jorge Reed M.D. 02/05/2025 9:11 AM
[2025-02-05] MEDS: ALBUT/IPRATROP 3MG/0.5MG NEB 3 ML VIAL NEB STA (09:26)
[2025-02-05 09:34] LABS: Alanine Aminotransferase < 3 U/L (7-52); Albumin Level 3.5 gm/dl (3.4-5.0); Alkaline Phosphatase 67 U/L (34-104); Anion Gap 6 (3-11); Aspartate Aminotransferase 16 U/L (13-39); BUN Creatinine Ratio 19.7 (10-20); Bilirubin,Total 0.6 mg/dl (0.2-1.0); Blood Urea Nitrogen 27 mg/dl (6-23); Calcium 9.3 mg/dl (8.6-10.3); Carbon Dioxide 31 mmol/L (21-32); Chloride 105 mmol/L (98-107); Creatinine Clr Calc Pharmacy 31.2 ml/min; Globulin 3.4 gm/dl (2.5-4.0); Glucose 116 mg/dl (70-99(Fasting)); Magnesium 1.8 mg/dl (1.7-2.4); Potassium 4.4 mmol/L (3.5-5.1); Sodium 142 mmol/L (136-145); Total Protein 6.9 gm/dl (6.0-8.3)
[2025-02-05 09:35] LABS: Base Excess VBG 4.1 mEq/L; HCO3 VBG 30 mmol/L; Oxygen Saturation VBG < 60.0 %; PCO2 VBG 51 mmHg (38-50); PO2 VBG < 20 mmHg; pH VBG 7.38 (7.36-7.41)
[2025-02-05 09:35] LABS: INR 1.1 (0.9-1.1); Partial Thromboplastin Time 27 Seconds (21-31); Prothrombin Time 11.7 Seconds (9.0-12.0)
[2025-02-05 09:39] LABS: Troponin I High Sensitivity 12.5 pg/ml (0-20)
[2025-02-05 09:52] LABS: Adenovirus PCR Not Detected (NotDetected); Bordetella parapertussis PCR Not Detected (NotDetected); Bordetella pertussis PCR Not Detected (NotDetected); Chlamydia pneumoniae PCR Not Detected (NotDetected); Coronavirus 229E PCR Not Detected (NotDetected); Coronavirus CoV-2 (COVID19)PCR Not Detected (NotDetected); Coronavirus HKU1 PCR Not Detected (NotDetected); Coronavirus NL63 PCR Not Detected (NotDetected); Coronavirus OC43PCR Not Detected (NotDetected); Human Metapneumovirus PCR Not Detected (NotDetected); Influenza A PCR Not Detected (NotDetected); Influenza B PCR Not Detected (NotDetected); Mycoplasma pneumoniae PCR Not Detected (NotDetected); Parainfluenza Virus 1 PCR Not Detected (NotDetected); Parainfluenza Virus 2 PCR Not Detected (NotDetected); Parainfluenza Virus 3 PCR Not Detected (NotDetected); Parainfluenza Virus 4 PCR Not Detected (NotDetected); Respiratory Syncytial VirusPCR Not Detected (NotDetected); Rhinovirus/Enterovirus PCR Not Detected (NotDetected)
[2025-02-05] MEDS: cefTRIAXone SODIUM 2,000 MG/50 ML BAG IV STA (10:05)
--- NOTE | 2025-02-05 11:02 | History & Physical Report ---
Date of Service February 05, 2025 Assessment & Plan (1) History of CVA (cerebrovascular accident): Plan: Risk factors are patient has valvular heart disease aortic stenosis aortic regurgitation and mitral regurgitation patient had right hemiplegia and stroke in November it does not look like he has recovered meaningfully and he is failure to thrive with a BMI of 18.3. With maximum assist patient's cannot take care of him at home she is requesting for some assistance I will consult PT OT for updated evaluation of patient's needs (2) Cough: Plan: It seems that patient is aspirating however he wants to be DNR/DNI I have allowed patient to have food and water for pleasure with aspiration precautions Will consult palliative care in the morning (3) Debilitated: Plan: Secondary to stroke (4) Pneumonia: Plan: Continue IV ceftriaxone History of Present Illness Chief Complaint: Failure to thrive, caregiver cannot handle increase burden as patient is getting very weak Primary Care Provider: Balta Miller DO Patient is an 84-year-old male with a history of previous CVA. Presents with several days of increased chest congestion and cough. He has felt short of breath, especially at night. He has been weak. Today, the cough seemed worse and he was brought by ambulance for evaluation. He coughs a lot when he tries to drink. There has been no fever. No vomiting or diarrhea, no chest pain. He has had some recent exposure to others but no one that was known to be sick. He denies underlying lung disease. Patient had a stroke in November which caused him right hemiplegic after acute stroke patient went for [facility] and from there he was discharged to home. Patient's is 84 years old and she has been in significant emotional and psychological and physical distress because of inability to take care of him. She is wondering if there is some sort of help to transfer patient to a alf facility. I see that patient has failure to thrive with a BMI of 18.3 and he is aspirating when I asked the patient who is awake and alert and oriented about his decline after his stroke and his overall prognosis appears to be very guarded he was very clear that if his quality of life is not going to be great he wants to be DNR and DNI Allergies Allergy/AdvReac Type Severity Reaction Status Date / Time amlodipine AdvReac gum Verified 12/06/24 15:21 hyperplasia Home Medications Medication Instructions Recorded Confirmed Type citalopram 20 mg tablet (Celexa) 20 mg PO BID 07/19/19 02/05/25 History travoprost 0.004 % eye drops 1 drp OPB HS 12/31/21 02/05/25 History (Travatan Z) brimonidine 0.2 %-timolol 0.5 % 1 drp OPB AMHS 12/06/24 02/05/25 History eye drops (Combigan) aspirin 81 mg tablet,delayed 81 mg PO DAILY 01/17/25 02/05/25 History release atorvastatin 40 mg tablet 40 mg PO DAILY #90 tabs 01/17/25 02/05/25 Rx buspirone 5 mg tablet 5 mg PO BID 01/17/25 02/05/25 History quetiapine 25 mg tablet (Seroquel) 50 mg PO DAILY 01/17/25 02/05/25 History carbidopa 25 mg-levodopa 100 mg 1 tab PO TID 02/05/25 02/05/25 History tablet docusate sodium 100 mg capsule 100 mg PO BID 02/05/25 02/05/25 History Past Med/Surg History Problem List (Updated 02/05/25 @ 14:33 by Elvin Escalante MD) History of CVA (cerebrovascular accident) (Acute) Debilitated (Acute) Cough (Acute) Leukocytosis (Acute) Pneumonia (Acute) SOB (shortness of breath) (Acute) Insomnia Hospital discharge follow-up Chronic kidney disease, stage 3b Hypertensive urgency Acute right hemiparesis (Acute) Stroke (Acute) Anxiety CVA (cerebral vascular accident) Bradycardia Syncope Hypertension (Chronic) Arteriosclerosis of coronary artery (Chronic) Dyslipidemia (Chronic) Stage 3b chronic kidney disease Kidney mass Complex renal cyst Benign prostatic hyperplasia with urinary obstruction (Acute) Parkinsonism Anemia Cervical myelopathy Cervical radiculopathy B12 deficiency IPMN (intraductal papillary mucinous neoplasm) MR report suggests IPMN, Last eval 02/2020 Anxiety with depression (Chronic) Followed by Psychiatry Osteoporosis (Chronic) Vitamin D deficiency (Chronic) Medical History Kidney lesion, [place], bilateral Last MRI 02/2020 Organic impotence History of torn meniscus of left knee Lentigines Rhinitis Actinic keratosis Cervical radiculopathy Erosive osteoarthritis of hands, bilateral Osteoarthritis Glaucoma b/l Myocardial Infarction 09/2017 NSTEMI (non-ST elevated myocardial infarction) 10/2016 Surgical History History of colonoscopy (06/2019) 06/2019, lymphocytic colitis seen on Biopsy History of tooth extraction History of cataract surgery RT/LEFT History of cardiac cath 2017 (NO STENT) Family History Mother , age 56 Rheumatic heart disease Myocardial infarction Denies family history of Ovarian cancer Prostate cancer Diabetes Heart disease Kidney disease Breast cancer Lung cancer Colorectal cancer Hypertension Social History Smoking Status: Never smoker Second Hand Exposure: No; Do You Dip or Chew Tobacco: No; Tobacco Cessation Education Requested by Patient: No Hx Alcohol Use: No Hx Substance Use: No Preferred Language: Portuguese Communication Ability: Effective Visual Impairment: Limited Hearing Ability: Normal Cook Chill Technician Required: No Beliefs That Will Affect Care: None marital status: Current Living Situation: Spouse current occupational status: retired How many Children do You have: 2 Other Information That Helps Us Care for You: No Feels Safe at Home: Yes Safety Concerns: Feels Safe At This Time Childhood Exposure to Second-Hand Smoke: Yes Diet: regular caffeine: Yes (drinks coffee in mornings ) during the past year weight has: decreased > 10 lbs Dental Care, Regularly: Yes Physical Activity Frequency: 3-4 Times per Week Seatbelt Use: always Sunscreen Use: Yes Assistive Devices: Denture - Upper and Glasses Review of Systems Review of Systems: Positive for shortness of breath when patient aspirates Physical Exam Physical Exam: 84-year-old male who is cachectic has te mporal wasting bilaterally and he is hemiplegic on right side due to recent stroke GENERAL: Patient is in no acute distress. Fairly thin. HEENT: No acute trauma, normocephalic atraumatic, mucous membranes moist, no nasal congestion. NECK: No stridor, no adenopathy, no meningismus, trachea is midline. LUNGS: Clear to auscultation bilaterally, no wheeze, no rhonchi, breath sounds equal. Breath sounds diminished bilaterally. HEART: 2/6 systolic murmur, occasional extra beats heard. Normal rate. ABDOMEN: Soft, nontender, no peritonitis. EXTREMITIES: No cyanosis, full range of motion of all the joints without pain or difficulty. NEUROLOGIC: Awake and alert. Right-sided deficits noted. SKIN: No jaundice, no diaphoresis. Results & Data Results & Data Vital Signs (Past 12 Hours) Vital Signs Temp Pulse Resp BP Pulse Ox O2 Del Method 02/05/25 10:09 72 21 95 02/05/25 09:36 75 21 100 02/05/25 09:03 74 21 95 02/05/25 08:49 73 20 95 Room Air 02/05/25 08:40 70 02/05/25 08:35 36.8 C 73 20 142/78 H 95 Room Air Laboratory Results Lab data reviewed hemoglobin is 11.4 white count is 13.68 neutrophils are 80% creatinine is 1.37 respiratory PCR did not detected any viral or bacterial DNA PG Care Time/CCT Total # of Minutes Spent Total Time Spent with Patient: Total time spent is greater than 50% in coordination of care (as documented) at patient's floor/unit and/or counseling patient: Coding Level of Care Code 12855 INT INP/OBS CARE 3/75MIN Diagnoses History of CVA (cerebrovascular accident) Z86.73 Cough R05.1 Cough type: acute Debilitated R53.81 Pneumonia J18.9 Laterality: left Lung location: lower lobe of lung Pneumonia type: due to unspecified organism Time Spent (min) 75 Comment Spoke to case management to bring them up to speed on patient's needs (2) Cough Cough type: acute Qualified Code(s): R05.1 - Acute cough (4) Pneumonia Laterality: left Lung location: lower lobe of lung Pneumonia type: due to unspecified organism Qualified Code(s): J18.9 - Pneumonia, unspecified organism
[2025-02-05] MEDS ORDERED: ONDANSETRON INJ 2 MG/ML 2 ML VIAL IV PRN (14:15)
[2025-02-05] MEDS ORDERED: POLYETHYLENE (MIRALAX) 17 GM PACK PO PRN (14:15)
[2025-02-05] MEDS: CITALOPRAM 20 MG TAB PO SCH (14:57)
[2025-02-05] MEDS: ATORVASTATIN 40 MG TAB PO SCH (14:57)
[2025-02-05] MEDS: CARBIDOPA/LEVODOPA 25/100MG TAB PO SCH (14:57)
[2025-02-05] MEDS: TRAVOPROST Z 0.004% OPH SOLN 2.5 ML BTL OPB SCH (20:36)
[2025-02-05] MEDS: DOCUSATE SODIUM 100 MG CAP PO SCH (20:36)
[2025-02-05] MEDS: BRIMONIDINE TARTRATE 0.2% 5ML OP SCH (20:38)
[2025-02-05] MEDS: TIMOLOL MALEATE 0.5% OP SOLN 5 ML BTL OP SCH (20:38)
[2025-02-05] MEDS: busPIRone 5 MG TAB PO SCH (20:39)
[2025-02-05] MEDS ORDERED: NON-FORMULARY MEDICATION (Brimonidine-Timolol [Combigan] 0.2-0.5 % drops) OPB SCH (21:00)
[2025-02-05 23:39] LABS: Appearance Urine Cloudy (Clear); Bacteria Urine Automated 2+ (None Seen); Bilirubin Urine Negative (Negative); Blood Urine 2+ (Negative); Color Urine Dark Yellow; Epithelial Cell Urine Auto 0-2 /hpf (0-2); Glucose Urine UA Negative (Negative); Ketones Urine Trace (Negative); Leukocyte Esterase Urine 2+ (Negative); Nitrite Urine Positive (Negative); Protein Urine 2+ (Negative); Specific Gravity Urine 1.021 (1.000-1.030); Urobilinogen Urine Negative (Negative); WBC Urine Automated >50 /hpf (0-5); pH Urine 5.5 (4.5-7.5)
[2025-02-06] MEDS: QUEtiapine FUMARATE 25 MG TABLET PO SCH (09:31)
[2025-02-06] MEDS: methylPREDNISolone 10 mg/mL (For Ped Dose < 7mg) IV SCH (11:26)
[2025-02-06] MEDS: AMPICILLIN/SULBACTAM SOD 3,000 MG/100 ML BAG IV SCH (12:03)
[2025-02-06] MEDS: ASPIRIN 81 MG ECTAB PO SCH (12:03)
[2025-02-06] MEDS: methylPREDNISolone 40 MG in SYRINGE 0 ML IV SCH (12:03)
--- NOTE | 2025-02-06 12:26 | Electrocardiogram Report ---
Test Reason : Blood Pressure : */* mmHG Vent. Rate : 88 BPM Atrial Rate : 88 BPM P-R Int : 194 ms QRS Dur : 86 ms QT Int : 388 ms P-R-T Axes : 71 59 13 degrees QTcB Int : 469 ms Sinus rhythm with marked sinus arrhythmia Septal infarct , age undetermined Abnormal ECG When compared with ECG of 06-Dec-2024 14:22, Vent. rate has increased by [address] more depressed Inferior leads Nonspecific T wave abnormality now evident in Inferior leads Confirmed by Alonzo Gant ([id number]) on 02/06/2025 12:26:07 PM Referred By: REFERRED SELF Confirmed By: Alonzo Gant
--- NOTE | 2025-02-06 14:40 | Hospitalist Progress Note ---
Date of Service February 06, 2025 Assessment & Plan (1) History of CVA (cerebrovascular accident): Plan: With resultant dense right hemiplegia. It appears his elderly is unable to provide adequate care for him at home. Palliative care consultation has been requested. Case management is also involved. It appears he will need placement. PT /OT assessments requested for updated evaluation of patient's needs (2) Debilitated: Plan: Right hemiplegia due to recent CVA. Supportive care. OT and PT assessments ordered and pending (3) Pneumonia: Plan: Suspected aspiration of gastric contents on a recurrent basis. He currently has a combination of aspiration pneumonitis and aspiration pneumonia. He is now on intravenous Unasyn and Solu-Medrol, day 1. (4) Chronic kidney disease, stage 3b: Plan: Monitor intake and output. Serial labs (5) Hypertension: Plan: Stable. Continue current medical management (6) Parkinsonism: Plan: Stable. Continue current medical management Plan Await palliative care input. It appears he will need placement at discharge Admission and Anticipated Discharge Date Admission Date: February 05, 2025 Subjective Alert and oriented. is at the bedside. Palliative care consultation requested and pending. He is now on intravenous Unasyn and Solu-Medrol for recurrent aspiration with suspected associated pneumonitis. Admission chest x- ray is clear. It appears his is unable to care for this patient adequately at home. Review of Systems 2 Review of Systems: Constitutionalno fever or chills ENTno blurred vision, no double vision, no epistaxis, no sore throat Respiratoryno cough, no wheezing, no shortness of breath Cardiacno palpitations, no chest pain, no syncope Kat nausea, vomiting, diarrhea, melena, hematochezia GUno urinary retention, no urinary incontinence, no dysuria, no hematuria Musculoskeletalno joint pain, no muscle tenderness Skinno bruising, no rashes, no pruritus Neurodense right hemiplegia from recent CVA Psychflat affect Physical Exam 2 Physical Exam: General-alert and oriented x3, no fever, no chills HEENT-head atraumatic and normocephalic, pupils equal and reactive to light, extraocular muscles intact Neck-no lymphadenopathy or thyromegaly, trachea midline Chest-scattered bilateral rhonchi. No wheezing. No inspiratory rales. Cardiac-regular rate and rhythm, normal S1 and S2 Abdomen-normal bowel sounds, no hepatosplenomegaly Extremities-no cyanosis, clubbing, or edema Neuro-cranial nerves II through XII intact, dense right hemiplegia from recent CVA. Psych-flat affect Results & Data Results & Data Vital Signs (Past 12 Hours) Vital Signs Temp Pulse Resp BP Pulse Ox O2 Del Method 02/06/25 14:01 Room Air 02/06/25 07:06 37.0 C 69 16 126/75 95 Room Air Laboratory Results 02/05/25 08:45 02/05/25 08:45 PG Care Time/CCT Total # of Minutes Spent Total Time Spent with Patient: Total time spent is greater than 50% in coordination of care (as documented) at patient's floor/unit and/or counseling patient: Coding Level of Care Code 49847 SUB INP/OBS CARE 3/50MIN Diagnoses History of CVA (cerebrovascular accident) Z86.73 Debilitated R53.81 Pneumonia J18.9 Laterality: left Lung location: lower lobe of lung Pneumonia type: due to unspecified organism Chronic kidney disease, stage 3b N18.32 Hypertension I10 Parkinsonism G20 (3) Pneumonia Laterality: left Lung location: lower lobe of lung Pneumonia type: due to unspecified organism Qualified Code(s): J18.9 - Pneumonia, unspecified organism
[2025-02-07 06:05] LABS: Basophils # (auto) 0.02 K/uL (0.00-0.20); Basophils % (auto) 0.2 %; Hematocrit (blood only) 30.8 % (42.0-52.0); Hemoglobin 10.3 g/dl (14.0-18.0); Immature Granulocytes % (auto) 0.8 %; Lymphocytes # (auto) 1.16 K/uL (1.20-3.40); Lymphocytes % (auto) 9.1 %; Mean Corpuscular Hemoglobin 30.7 pg (25.0-34.0); Mean Corpuscular Hgb Conc 33.4 g/dL (32.0-36.0); Mean Corpuscular Volume 91.9 fL (80.0-100.0); Mean Platelet Volume 9.9 fL (9.4-12.4); Monocytes # (auto) 0.15 K/uL (0.11-0.59); Monocytes % (auto) 1.2 %; Neutrophils # (auto) 11.25 K/uL (1.40-6.50); Neutrophils % (auto) 88.7 %; Platelet Count 204 K/uL (130-400); RDW Coefficient of Variation 13.2 % (11.5-14.5); RDW Standard Deviation 44.1 fL (36.4-46.3); Red Blood Count 3.35 M/uL (4.70-6.10); White Blood Count 12.68 K/ul (4.8-10.8)
[2025-02-07 06:25] LABS: Calcium 8.8 mg/dl (8.6-10.3); Creatinine Clr Calc Pharmacy 26.7 ml/min; Potassium 4.5 mmol/L (3.5-5.1)
[2025-02-07] MEDS ORDERED: ACETAMINOPHEN 325 MG TAB PO PRN (09:18)
--- NOTE | 2025-02-07 11:04 | Palliative Care Consultation ---
Date of Consultation February 07, 2025 Assessment & Plan (1) Palliative care by specialist: Met with pt and his at bedside from 08:40 - 09:15 to discuss goals of care. Pt was awake but confused and offered minimal interaction during conversation. Introduced Palliative Medicine and explained our role in advanced care planning, symptom management and navigation through the progression of life limiting disease. Patient and were receptive to palliative services for goals of care discussions. Reviewed we are different from hospice, a home health nurse visiting service. (2) Counseling regarding goals of care: Patient exhibits current lack of decisional capacity based on the inability to convey understanding of personal PMHx, current medical condition, treatment options nor the risks / benefits/ potential outcomes of accepting/declining those options, and inability to make decisions based on such knowledge. Hospital does not have written documentation of patient wishes concerning his chosen proxy for medical decisions. Per PA [id number], in absence of written documentation of patient wishes, pt's proxy for medical decisions would be his . Pt does require a proxy for medical decisions his is at bedside and agreeable to serve as proxy. 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 She shared that they have been for nearly 60yrs and have two sons and four grandsons. Their grandsons have been living locally as they are [employer] students and the family is very close. Mrs. Alexander shared that she was hopeful that the pt would gain strength and independence while at [facility], but since he has been home he has been bed bound and requires total nursing care. She shared that she is not physically able to provide the level of care he requires. She shared that LUIS EDUARDO Flanagan has been helping her with SNF placement, but she is thinking that perhaps it is time for hospice care. Discussed option of continuing down same course of care to prolong life with placement in SNF and likely readmissions for frequent infections vs a comfort directed approach while allowing for a peaceful natural . Mrs Alexander requests pt be discharged to SNF for comfort directed care when he is cleared for discharge. Dr Rudolph (attending) and LUIS EDUARDO Flanagan made aware of request. (3) Encounter for hospice care discussion: Discussed hospice benefit: an interdisciplinary program offered by nurses, nurses aides, social workers, chaplains and a medical photographer for patients with a terminal condition and a life expectancy of less than 6 months. This is covered by Medicare at 100%/no out of pocket expense to patient and all meds/supplies needed by patient for the reason they are on hospice are paid for/covered by hospice. The goal is assure quality of life of the patient in their home setting (home, fpc, inpatient hospice setting) by providing symptoms management, psychosocial and spiritual support. However, they cannot offer 24 hours care and if the family is unable to provide that care, they will have to consider personal care with out of pocket cost vs. fpc placement. We discussed the goals of hospice as a patient service and the goals of care; we discussed EOL trajectories and transitions delaney the emotional impact of realizing mortality as a concrete reality from prior abstract considerations. Pt was reassured that no matter where they are along this trajectory, they are not alone - their medical team will remain by their side through their journey. Discussed the pros/cons of accepting help when especially weakened and distressed by pain-which would also help provide relief/decrease caregiver burden/strain. Plan DNR/DNI, patient will need SNF placement for comfort directed care/hospice. History of Present Illness Reason for Consultation: goals of care Requesting Physician: Javier Rudolph MD Attending Physician: Javier Rudolph MD History of Present Illness Mr. Alexander is an 84-year-old male with a history of previous CVA. Presents to ED 02/05/25 with several days of increased chest congestion, SOB and cough. His brought him to ED with concern for coughing a lot when he tries to drink. Patient had a stroke in November which caused him right hemiplegic after acute stroke patient went for 3 weeks to [facility] acute rehab and from there he was discharged to home. Patient's is 84 years old and unable to provide the care he requires at home. She is hopeful for discharge to a [facility] facility. Allergies Allergy/AdvReac Type Severity Reaction Status Date / Time amlodipine AdvReac gum Verified 12/06/24 15:21 hyperplasia Home Medications Medication Instructions Recorded Confirmed Type citalopram 20 mg tablet (Celexa) 20 mg PO BID 07/19/19 02/05/25 History travoprost 0.004 % eye drops 1 drp OPB HS 12/31/21 02/05/25 History (Travatan Z) brimonidine 0.2 %-timolol 0.5 % 1 drp OPB [facility]HS 12/06/24 02/05/25 History eye drops (Combigan) aspirin 81 mg tablet,delayed 81 mg PO DAILY 01/17/25 02/05/25 History release atorvastatin 40 mg tablet 40 mg PO DAILY #90 tabs 01/17/25 02/05/25 Rx buspirone 5 mg tablet 5 mg PO BID 01/17/25 02/05/25 History quetiapine 25 mg tablet (Seroquel) 50 mg PO DAILY 01/17/25 02/05/25 History carbidopa 25 mg-levodopa 100 mg 1 tab PO TID 02/05/25 02/05/25 History tablet docusate sodium 100 mg capsule 100 mg PO BID 02/05/25 02/05/25 History Patient History Medical History Kidney lesion, [facility], bilateral Last MRI 02/2020 Organic impotence History of torn meniscus of left knee Lentigines Rhinitis Actinic keratosis Cervical radiculopathy Erosive osteoarthritis of hands, bilateral Osteoarthritis Glaucoma b/l Myocardial Infarction 09/2017 NSTEMI (non-ST elevated myocardial infarction) 10/2016 Surgical History History of colonoscopy (06/2019) 06/2019, lymphocytic colitis seen on Biopsy History of tooth extraction History of cataract surgery RT/LEFT History of cardiac cath 2017 (NO STENT) Family History Mother , age 56 Rheumatic heart disease Myocardial infarction Denies family history of Ovarian cancer Prostate cancer Diabetes Heart disease Kidney disease Breast cancer Lung cancer Colorectal cancer Hypertension Social History Smoking Status: Never smoker Second Hand Exposure: No; Do You Dip or Chew Tobacco: No; Tobacco Cessation Education Requested by Patient: No Hx Alcohol Use: No Hx Substance Use: No Preferred Language: [place] Communication Ability: Impaired Visual Impairment: Limited Hearing Ability: Normal [place] Straightener Stamper Required: No Beliefs That Will Affect Care: None marital status: Current Living Situation: Spouse current occupational status: retired How many Children do You have: 2 Other Information That Helps Us Care for You: No Feels Safe at Home: Yes Safety Concerns: Feels Safe At This Time Childhood Exposure to Second-Hand Smoke: Yes Diet: regular caffeine: Yes (drinks coffee in mornings ) during the past year weight has: decreased > 10 lbs Dental Care, Regularly: Yes Physical Activity Frequency: 3-4 Times per Week Seatbelt Use: always Sunscreen Use: Yes Assistive Devices: Hospital Bed Review of Systems Review of Systems: Unobtainable due to cognitive status Physical Exam Physical Exam: pt awake and alert, oriented to person only and offers minimal verbal response when prompted Constitutional: well developed, + ill appearing, + cachectic and + altered mental status Eyes: PERRL, conjunctivae normal, anicteric sclerae Neck: trachea midline, no thyromegaly Respiratory: normal respiratory effort, lungs clear to auscultation Cardiovascular: RRR, no murmur, no edema Gastrointestinal (Abdomen): normal bowel sounds, soft, nontender, no hepatosplenomegaly Skin: + turgor decreased, + dry skin and + pal randall Neurologic: PERRL, EOMI, accommodation nl, no face palsy, no dysarthria Psychiatric: Orientation: oriented to person Results & Data Vital Signs (Past 12 Hours) Vital Signs Temp Pulse Resp BP Pulse Ox O2 Del Method 02/07/25 06:57 36.5 C 63 16 138/76 93 Room Air Laboratory Results Abnormal lab results 02/07/25 Range/Units 05:37 WBC 12.68 H (4.8-10.8) K/ul RBC 3.35 L (4.70-6.10) M/uL Hgb 10.3 L (14.0-18.0) g/dl Hct 30.8 L (42.0-52.0) % Neut # (Auto) 11.25 H (1.40-6.50) K/uL Lymph # (Auto) 1.16 L (1.20-3.40) K/uL BUN 40 H (6-23) mg/dl Creatinine 1.60 H (0.6-1.4) mg/dl BUN/Creatinine Ratio 25.0 H (10-20) Glucose 157 H (70-99(Fasting)) mg/dl Diagnostic Findings Chest X-Ray 02/05/25 08:38 XR chest 1V portable CLINICAL HISTORY: Dyspnea COMPARISON STUDY: 11/11/2016 FINDINGS: Heart size and pulmonary vasculature are normal. No effusion, consolidation, or pneumothorax. IMPRESSION: No acute findings. ACT 112: Negative or not required by law. Electronically signed by: Jorge Reed M.D. 02/05/2025 9:11 AM Medications Administered Current Inpatient Medications Acetaminophen (Acetaminophen 325 Mg Tab) 650 mg PO Q6H PRN PRN Reason: Fever or headache Stop: 03/09/25 09:17 Aspirin (Aspirin 81 Mg Ectab) 81 mg PO DAILY ANDREW Stop: 03/08/25 08:59 Last Admin: 02/07/25 08:38 Dose: 81 mg Atorvastatin Calcium (Atorvastatin 40 Mg Tab) 40 mg PO DAILY ANDREW Stop: 03/07/25 14:14 Last Admin: 02/07/25 08:37 Dose: 40 mg Brimonidine Tartrate (Brimonidine Tartrate 0.2% 5ml) 1 drops OP BID ANDREW Stop: 03/07/25 20:59 Last Admin: 02/07/25 08:35 Dose: 1 drops Buspirone HCl (Buspirone 5 Mg Tab) 5 mg PO BID ANDREW Stop: 03/07/25 20:59 Last Admin: 02/07/25 08:38 Dose: 5 mg Carbidopa/Levodopa (Carbidopa/Levodopa 25/100mg Tab) 1 tab PO TID ANDREW Stop: 03/07/25 14:14 Last Admin: 02/07/25 08:37 Dose: 1 tab Citalopram Hydrobromide (Citalopram 20 Mg Tab) 20 mg PO BID ANDREW Stop: 03/07/25 14:14 Last Admin: 02/07/25 08:37 Dose: 20 mg Docusate Sodium (Docusate Sodium 100 Mg Cap) 100 mg PO BID ANDREW Stop: 03/07/25 20:59 Last Admin: 02/07/25 08:35 Dose: 100 mg Ampicillin Sodium/Sulbactam Sodium (Unasyn) 3,000 mg in 100 mls @ 200 mls/hr IV Q6H ANDREW Stop: 02/13/25 10:59 Last Infusion: 02/07/25 03:49 Dose: Infused Methylprednisolone 40 mg/ (Syringe) 0.64 mls @ 1.5 mls/min IV Q8H ANDREW Stop: 03/08/25 10:59 Last Admin: 02/07/25 03:09 Dose: 1.5 mls/min Melatonin (Melatonin 3 Mg Tab) 3 mg PO HS PRN PRN Reason: Insomnia Stop: 03/07/25 14:14 Ondansetron HCl (Ondansetron Inj 2 Mg/Ml 2 Ml Vial) 4 mg IV Q6H PRN PRN Reason: Nausea Stop: 03/07/25 14:14 Polyethylene Glycol (Polyethylene (Miralax) 17 Gm Pack) 17 gm PO DAILY PRN PRN Reason: Constipation Stop: 03/07/25 14:14 Quetiapine Fumarate (Quetiapine Fumarate 25 Mg Tablet) 50 mg PO DAILY ANDREW Stop: 03/08/25 08:59 Last Admin: 02/07/25 08:38 Dose: 50 mg Timolol Maleate (Timolol Maleate 0.5% Op Soln 5 Ml Btl) 1 drops OP BID ANDREW Stop: 03/07/25 20:59 Last Admin: 02/07/25 08:35 Dose: 1 drops Travoprost (Travoprost Z 0.004% Oph Soln 2.5 Ml Btl) 1 drops OPB HS ANDREW Stop: 03/07/25 20:59 Last Admin: 02/06/25 20:42 Dose: 1 drops PG Care Time/CCT Total # of Minutes Spent Total Time Spent with Patient: Total time spent is greater than 50% in coordination of care (as documented) at patient's floor/unit and/or counseling patient: Advanced Care Planning 18322 Advanced Care Planning 30 [place] [address] IN/OBS CONSULT LVL 3,45M Patient Type New History Expanded Problem Focused Exam Expanded Problem Focused Medical Decision Making Moderate Complexity Diagnoses Palliative care by specialist Z51.5 Counseling regarding goals of care Z71.89 Encounter for hospice care discussion Z71.89 Additional Codes Advanced Care Planning - 22036 Advanced Care Planning 30 Min: 11751 Advanced Care Planning 30 Min ([id number])
--- NOTE | 2025-02-07 12:37 | Hospitalist Progress Note ---
Date of Service February 07, 2025 Assessment & Plan (1) History of CVA (cerebrovascular accident): Plan: With resultant dense right hemiplegia. It appears his elderly is unable to provide adequate care for him at home. Palliative care consultation appreciated. The patient's has expressed interest in pursuing hospice care when he goes to SNF. Case management is also involved. The has requested that he does not continue with OT and PT services (2) Debilitated: Plan: Right hemiplegia due to recent CVA. Supportive care. OT and PT have been discontinued per 's request (3) Pneumonia: Plan: Suspected aspiration of gastric contents on a recurrent basis. He currently has a combination of aspiration pneumonitis and aspiration pneumonia. He is now on intravenous Unasyn and Solu-Medrol, day 2. Fortunately he is on room air. (4) Chronic kidney disease, stage 3b: Plan: Monitor intake and output. Serial labs (5) Hypertension: Plan: Stable. Continue current medical management (6) Parkinsonism: Plan: Stable. Continue current medical management Plan Discharge to SNF facility when arrangements are finalized. He is medically stable for discharge. He will not require intravenous antibiotics at the time of discharge. Admission and Anticipated Discharge Date Admission Date: February 05, 2025 Subjective The patient is awake and alert. The patient's has expressed her interest in hospice care when he goes to SNF. She does not want any further OT or PT and these have been discontinued. He remains on room air. He also remains on parenteral steroid therapy and Unasyn for suspected aspiration pneumonia and pneumonitis Review of Systems 2 Review of Systems: Constitutionalno fever or chills ENTno blurred vision, no double vision, no epistaxis, no sore throat Respiratoryno cough, no wheezing, no shortness of breath Cardiacno palpitations, no chest pain, no syncope Kat nausea, vomiting, diarrhea, melena, hematochezia GUno urinary retention, no urinary incontinence, no dysuria, no hematuria Musculoskeletalno joint pain, no muscle tenderness Skinno bruising, no rashes, no pruritus Neurodense right hemiplegia from recent CVA Psychflat affect Physical Exam 2 Physical Exam: General-alert and oriented x3, no fever, no chills HEENT-head atraumatic and normocephalic, pupils equal and reactive to light, extraocular muscles intact Neck-no lymphadenopathy or thyromegaly, trachea midline Chest-scattered bilateral rhonchi. No wheezing. No inspiratory rales. Cardiac-regular rate and rhythm, normal S1 and S2 Abdomen-normal bowel sounds, no hepatosplenomegaly Extremities-no cyanosis, clubbing, or edema Neuro-cranial nerves II through XII intact, dense right hemiplegia from recent CVA. Psych-flat affect Results & Data Results & Data Vital Signs (Past 12 Hours) Vital Signs Temp Pulse Resp BP Pulse Ox O2 Del Method 02/07/25 06:57 36.5 C 63 16 138/76 93 Room Air Laboratory Results 02/07/25 05:37 02/07/25 05:37 PG Care Time/CCT Total # of Minutes Spent Total Time Spent with Patient: Total time spent is greater than 50% in coordination of care (as documented) at patient's floor/unit and/or counseling patient: Coding Level of Care Code 97134 SUB INP/OBS CARE 2/35MIN Diagnoses History of CVA (cerebrovascular accident) Z86.73 Debilitated R53.81 Pneumonia J18.9 Laterality: left Lung location: lower lobe of lung Pneumonia type: due to unspecified organism Chronic kidney disease, stage 3b N18.32 Hypertension I10 Parkinsonism G20 (3) Pneumonia Laterality: left Lung location: lower lobe of lung Pneumonia type: due to unspecified organism Qualified Code(s): J18.9 - Pneumonia, unspecified organism
[2025-02-08 08:25] LABS: Hematocrit (blood only) 30.5 % (42.0-52.0); Hemoglobin 10.3 g/dl (14.0-18.0); Mean Corpuscular Hemoglobin 30.8 pg (25.0-34.0); Mean Corpuscular Hgb Conc 33.8 g/dL (32.0-36.0); Mean Corpuscular Volume 91.3 fL (80.0-100.0); Mean Platelet Volume 10.3 fL (9.4-12.4); Platelet Count 235 K/uL (130-400); RDW Coefficient of Variation 13.1 % (11.5-14.5); RDW Standard Deviation 43.4 fL (36.4-46.3); Red Blood Count 3.34 M/uL (4.70-6.10); White Blood Count 15.59 K/ul (4.8-10.8)
[2025-02-08 08:51] LABS: BUN Creatinine Ratio 31.5 (10-20); Calcium 8.5 mg/dl (8.6-10.3); Creatinine Clr Calc Pharmacy 23.6 ml/min; Potassium 4.2 mmol/L (3.5-5.1)
[2025-02-08 08:54] LABS: Basophils # (auto) 0.02 K/uL (0.00-0.20); Basophils % (auto) 0.1 %; Immature Granulocytes # (auto) 0.14 K/uL (0.01-0.20); Immature Granulocytes % (auto) 0.9 %; Lymphocytes # (auto) 1.11 K/uL (1.20-3.40); Lymphocytes % (auto) 7.1 %; Monocytes # (auto) 0.26 K/uL (0.11-0.59); Monocytes % (auto) 1.7 %; Neutrophils # (auto) 14.06 K/uL (1.40-6.50); Neutrophils % (auto) 90.2 %
--- NOTE | 2025-02-08 13:35 | Hospitalist Progress Note ---
Date of Service February 08, 2025 Assessment & Plan (1) History of CVA (cerebrovascular accident): Plan: With resultant dense right hemiplegia. It appears his elderly is unable to provide adequate care for him at home. Palliative care consultation appreciated. The is going to pursue placement at personal-care since she does not want OT and PT services and this precludes transfer to an SNF facility. (2) Debilitated: Plan: Right hemiplegia due to recent CVA. Supportive care. OT and PT have been discontinued per 's request (3) Pneumonia: Plan: Suspected aspiration of gastric contents on a recurrent basis. He currently has a combination of aspiration pneumonitis and aspiration pneumonia. He is now on intravenous Unasyn and Solu-Medrol, day 2. Fortunately he is on room air. (4) Chronic kidney disease, stage 3b: Plan: Monitor intake and output. Serial labs (5) Hypertension: Plan: Stable. Continue current medical management (6) Parkinsonism: Plan: Stable. Continue current medical management (7) Severe protein-calorie malnutrition: Plan: Per [place] criteria. Oral intake has been emphasized (8) Pressure injury of sacral region, unstageable: Plan: Local care Plan Discharge to personal-intermediate when arrangements are finalized. The and patient do not want OT or PT services at this time. He is medically stable for discharge. Admission and Anticipated Discharge Date Admission Date: February 05, 2025 Subjective No new problems. Intravenous Unasyn and Solu-Medrol switched to oral Augmentin and oral prednisone. Prednisone will eventually be tapered off. I spoke to the at length at the bedside. She is going to pursue personal-intermediate placement since they do not want OT and PT services. Review of Systems 2 Review of Systems: Constitutionalno fever or chills ENTno blurred vision, no double vision, no epistaxis, no sore throat Respiratoryno cough, no wheezing, no shortness of breath Cardiacno palpitations, no chest pain, no syncope Kat nausea, vomiting, diarrhea, melena, hematochezia GUno urinary retention, no urinary incontinence, no dysuria, no hematuria Musculoskeletalno joint pain, no muscle tenderness Skinno bruising, no rashes, no pruritus Neurodense right hemiplegia from recent CVA Psychflat affect Physical Exam 2 Physical Exam: General-alert and oriented x3, no fever, no chills HEENT-head atraumatic and normocephalic, pupils equal and reactive to light, extraocular muscles intact Neck-no lymphadenopathy or thyromegaly, trachea midline Chest-scattered bilateral rhonchi. No wheezing. No inspiratory rales. Cardiac-regular rate and rhythm, normal S1 and S2 Abdomen-normal bowel sounds, no hepatosplenomegaly Extremities-no cyanosis, clubbing, or edema Neuro-cranial nerves II through XII intact, dense right hemiplegia from recent CVA. Psych-flat affect Results & Data Results & Data Vital Signs (Past 12 Hours) Vital Signs Temp Pulse Resp BP Pulse Ox O2 Del Method 02/08/25 08:11 36.7 C 54 L 18 134/71 95 Room Air Laboratory Results 02/08/25 07:29 02/08/25 07:29 PG Care Time/CCT Total # of Minutes Spent Total Time Spent with Patient: Total time spent is greater than 50% in coordination of care (as documented) at patient's floor/unit and/or counseling patient: Coding Level of Care Code 96097 SUB INP/OBS CARE 3/50MIN Diagnoses History of CVA (cerebrovascular accident) Z86.73 Debilitated R53.81 Pneumonia J18.9 Laterality: left Lung location: lower lobe of lung Pneumonia type: due to unspecified organism Chronic kidney disease, stage 3b N18.32 Hypertension I10 Parkinsonism G20 Severe protein-calorie malnutrition E43 Pressure injury of sacral region, unstageable L89.150 (3) Pneumonia Laterality: left Lung location: lower lobe of lung Pneumonia type: due to unspecified organism Qualified Code(s): J18.9 - Pneumonia, unspecified organism
[2025-02-08] MEDS: predniSONE 10 MG TABLET PO SCH (13:59)
[2025-02-08] MEDS: AMOXICILLIN/CLAVULANATE 500 MG TAB PO SCH (18:14)
[2025-02-09 07:07] LABS: Basophils # (auto) 0.01 K/uL (0.00-0.20); Basophils % (auto) 0.1 %; Hematocrit (blood only) 30.2 % (42.0-52.0); Immature Granulocytes # (auto) 0.19 K/uL (0.01-0.20); Immature Granulocytes % (auto) 1.3 %; Lymphocytes # (auto) 1.33 K/uL (1.20-3.40); Lymphocytes % (auto) 9.2 %; Mean Corpuscular Hemoglobin 30.3 pg (25.0-34.0); Mean Corpuscular Hgb Conc 33.1 g/dL (32.0-36.0); Mean Corpuscular Volume 91.5 fL (80.0-100.0); Mean Platelet Volume 10.1 fL (9.4-12.4); Monocytes # (auto) 0.79 K/uL (0.11-0.59); Monocytes % (auto) 5.4 %; Neutrophils # (auto) 12.19 K/uL (1.40-6.50); Platelet Count 225 K/uL (130-400); RDW Coefficient of Variation 13.2 % (11.5-14.5); RDW Standard Deviation 43.3 fL (36.4-46.3); White Blood Count 14.51 K/ul (4.8-10.8)
[2025-02-09 07:20] LABS: BUN Creatinine Ratio 35.3 (10-20); Calcium 8.3 mg/dl (8.6-10.3); Creatinine Clr Calc Pharmacy 24.7 ml/min
--- NOTE | 2025-02-09 12:45 | Hospitalist Progress Note ---
Date of Service February 09, 2025 Assessment & Plan (1) History of CVA (cerebrovascular accident): Plan: With resultant dense right hemiplegia. It appears his elderly is unable to provide adequate care for him at home. Palliative care consultation appreciated. [facility] not [facility] and PT services and this precludes transfer to an SNF facility. (2) Debilitated: Plan: Right hemiplegia due to recent CVA. Supportive care. OT and PT have been discontinued per 's request (3) Pneumonia: Plan: Suspected aspiration of gastric contents on a recurrent basis. He currently has a combination of aspiration pneumonitis and aspiration pneumonia. Unasyn and methylprednisolone have been switched to oral Augmentin and oral prednisone. Fortunately he is on room air. (4) Chronic kidney disease, stage 3b: Plan: Monitor intake and output. Serial labs (5) Hypertension: Plan: Stable. Continue current medical management (6) Parkinsonism: Plan: Stable. Continue current medical management (7) Severe protein-calorie malnutrition: Plan: Per [place] criteria. Oral intake has been emphasized (8) Pressure injury of sacral region, unstageable: Plan: [facility] The and patient do not want OT or PT services at this time. He is medically stable for discharge. Admission and Anticipated Discharge Date Admission Date: February 05, 2025 Subjective Alert and oriented. No new problems. Awaiting authorization for placement at [facility] Review of Systems 2 Review of Systems: Constitutionalno fever or chills ENTno blurred vision, no double vision, no epistaxis, no sore throat Respiratoryno cough, no wheezing, no shortness of breath Cardiacno palpitations, no chest pain, no syncope Kat nausea, vomiting, diarrhea, melena, hematochezia GUno urinary retention, no urinary incontinence, no dysuria, no hematuria Musculoskeletalno joint pain, no muscle tenderness Skinno bruising, no rashes, no pruritus Neurodense right hemiplegia from recent CVA Psychflat affect Physical Exam 2 Physical Exam: General-alert and oriented x3, no fever, no chills HEENT-head atraumatic and normocephalic, pupils equal and reactive to light, extraocular muscles intact Neck-no lymphadenopathy or thyromegaly, trachea midline Chest-scattered bilateral rhonchi. No wheezing. No inspiratory rales. Cardiac-regular rate and rhythm, normal S1 and S2 Abdomen-normal bowel sounds, no hepatosplenomegaly Extremities-no cyanosis, clubbing, or edema Neuro-cranial nerves II through XII intact, dense right hemiplegia from recent CVA. Psych-flat affect Results & Data Results & Data Vital Signs (Past 12 Hours) Vital Signs Temp Pulse Resp BP Pulse Ox O2 Del Method 02/09/25 07:05 36.7 C 58 L 16 144/81 H 96 Room Air Laboratory Results 02/09/25 06:52 02/09/25 06:52 PG Care Time/CCT Total # of Minutes Spent Total Time Spent with Patient: Total time spent is greater than 50% in coordination of care (as documented) at patient's floor/unit and/or counseling patient: Coding Level of Care Code 02956 SUB INP/OBS CARE 2/35MIN Diagnoses History of CVA (cerebrovascular accident) Z86.73 Debilitated R53.81 Pneumonia J18.9 Laterality: left Lung location: lower lobe of lung Pneumonia type: due to unspecified organism Chronic kidney disease, stage 3b N18.32 Hypertension I10 Parkinsonism G20 Severe protein-calorie malnutrition E43 Pressure injury of sacral region, unstageable L89.150 (3) Pneumonia Laterality: left Lung location: lower lobe of lung Pneumonia type: due to unspecified organism Qualified Code(s): J18.9 - Pneumonia, unspecified organism
--- NOTE | 2025-02-10 12:28 | Hospitalist Progress Note ---
Date of Service February 10, 2025 Assessment & Plan (1) History of CVA (cerebrovascular accident): Plan: With resultant dense right hemiplegia. It appears his elderly is unable to provide adequate care for him at home. Palliative care consultation appreciated. [facility] since she does not want OT and PT services and this precludes transfer to an SNF facility. (2) Debilitated: Plan: Right hemiplegia due to recent CVA. Supportive care. OT and PT have been discontinued per 's request (3) Pneumonia: Plan: Suspected aspiration of gastric contents on a recurrent basis. He currently has a combination of aspiration pneumonitis and aspiration pneumonia. Unasyn and methylprednisolone have been switched to oral Augmentin and oral prednisone. Fortunately he is on room air. (4) Chronic kidney disease, stage 3b: Plan: Monitor intake and output. Serial labs (5) Hypertension: Plan: Stable. Continue current medical management (6) Parkinsonism: Plan: Stable. Continue current medical management (7) Severe protein-calorie malnutrition: Plan: Per [place] criteria. Oral intake has been emphasized (8) Pressure injury of sacral region, unstageable: Plan: Local care Plan Anticipate discharge to [facility] in [place] on Thursday Admission and Anticipated Discharge Date Admission Date: February 05, 2025 Subjective Awake and alert. No new problems. is at the bedside. He will be discharged to [facility] in [facility] on Thursday. Review of Systems 2 Review of Systems: Constitutionalno fever or chills ENTno blurred vision, no double vision, no epistaxis, no sore throat Respiratoryno cough, no wheezing, no shortness of breath Cardiacno palpitations, no chest pain, no syncope Kat nausea, vomiting, diarrhea, melena, hematochezia GUno urinary retention, no urinary incontinence, no dysuria, no hematuria Musculoskeletalno joint pain, no muscle tenderness Skinno bruising, no rashes, no pruritus Neurodense right hemiplegia from recent CVA Psychflat affect Physical Exam 2 Physical Exam: General-alert and oriented x3, no fever, no chills HEENT-head atraumatic and normocephalic, pupils equal and reactive to light, extraocular muscles intact Neck-no lymphadenopathy or thyromegaly, trachea midline Chest-scattered bilateral rhonchi. No wheezing. No inspiratory rales. Cardiac-regular rate and rhythm, normal S1 and S2 Abdomen-normal bowel sounds, no hepatosplenomegaly Extremities-no cyanosis, clubbing, or edema Neuro-cranial nerves II through XII intact, dense right hemiplegia from recent CVA. Psych-flat affect Results & Data Results & Data Vital Signs (Past 12 Hours) Vital Signs Temp Pulse Resp BP Pulse Ox O2 Del Method 02/10/25 09:15 Room Air 02/10/25 07:48 36.8 C 68 16 134/72 93 Room Air Laboratory Results 02/09/25 06:52 02/09/25 06:52 PG Care Time/CCT Total # of Minutes Spent Total Time Spent with Patient: Total time spent is greater than 50% in coordination of care (as documented) at patient's floor/unit and/or counseling patient: Coding Level of Care Code 29130 SUB INP/OBS CARE 2/35MIN Diagnoses History of CVA (cerebrovascular accident) Z86.73 Debilitated R53.81 Pneumonia J18.9 Laterality: left Lung location: lower lobe of lung Pneumonia type: due to unspecified organism Chronic kidney disease, stage 3b N18.32 Hypertension I10 Parkinsonism G20 Severe protein-calorie malnutrition E43 Pressure injury of sacral region, unstageable L89.150 (3) Pneumonia Laterality: left Lung location: lower lobe of lung Pneumonia type: due to unspecified organism Qualified Code(s): J18.9 - Pneumonia, unspecified organism
[2025-02-10] MEDS: MELATONIN 3 MG TAB PO PRN (19:27)
--- NOTE | 2025-02-11 12:10 | Hospitalist Progress Note ---
Date of Service February 11, 2025 Assessment & Plan (1) History of CVA (cerebrovascular accident): Plan: With resultant dense right hemiplegia. It appears his elderly is unable to provide adequate care for him at home. Palliative care consultation appreciated. The [facility] since she does not want OT and PT services and this precludes transfer to an SNF facility. (2) Debilitated: Plan: Right hemiplegia due to recent CVA. Supportive care. OT and PT have been discontinued per 's request (3) Pneumonia: Plan: Suspected aspiration of gastric contents on a recurrent basis. He currently has a combination of aspiration pneumonitis and aspiration pneumonia. Unasyn and methylprednisolone have been switched to oral Augmentin and oral prednisone. Prednisone has been tapered down to twice daily dosing today, December 12. Fortunately he is on room air. (4) Chronic kidney disease, stage 3b: Plan: Monitor intake and output. Serial labs (5) Hypertension: Plan: Stable. Continue current medical management (6) Parkinsonism: Plan: Stable. Continue current medical management (7) Severe protein-calorie malnutrition: Plan: Per [place] criteria. Oral intake has been emphasized (8) Pressure injury of sacral region, unstageable: Plan: Local care. Patient states he is offloading his sacrum on a regular basis Plan Anticipate discharge to [facility] in [place] on Thursday Admission and Anticipated Discharge Date Admission Date: February 05, 2025 Subjective Alert and oriented. No new problems. Prednisone has been tapered down from 3 times a day to twice daily dosing. is at the bedside. Awaiting discharge to [facility] in [place] on Thursday Review of Systems 2 Review of Systems: Constitutionalno fever or chills ENTno blurred vision, no double vision, no epistaxis, no sore throat Respiratoryno cough, no wheezing, no shortness of breath Cardiacno palpitations, no chest pain, no syncope Kat nausea, vomiting, diarrhea, melena, hematochezia GUno urinary retention, no urinary incontinence, no dysuria, no hematuria Musculoskeletalno joint pain, no muscle tenderness Skinno bruising, no rashes, no pruritus Neurodense right hemiplegia from recent CVA Psychflat affect Physical Exam 2 Physical Exam: General-alert and oriented x3, no fever, no chills HEENT-head atraumatic and normocephalic, pupils equal and reactive to light, extraocular muscles intact Neck-no lymphadenopathy or thyromegaly, trachea midline Chest-scattered bilateral rhonchi. No wheezing. No inspiratory rales. Cardiac-regular rate and rhythm, normal S1 and S2 Abdomen-normal bowel sounds, no hepatosplenomegaly Extremities-no cyanosis, clubbing, or edema Neuro-cranial nerves II through XII intact, dense right hemiplegia from recent CVA. Psych-flat affect Results & Data Results & Data Vital Signs (Past 12 Hours) Vital Signs Temp Pulse Resp BP Pulse Ox O2 Del Method 02/11/25 09:00 Room Air 02/11/25 08:13 36.4 C L 55 L 16 150/80 H 96 Room Air Laboratory Results 02/09/25 06:52 02/09/25 06:52 PG Care Time/CCT Total # of Minutes Spent Total Time Spent with Patient: Total time spent is greater than 50% in coordination of care (as documented) at patient's floor/unit and/or counseling patient: Coding Level of Care Code 58432 SUB INP/OBS CARE 2/35MIN Diagnoses History of CVA (cerebrovascular accident) Z86.73 Debilitated R53.81 Pneumonia J18.9 Laterality: left Lung location: lower lobe of lung Pneumonia type: due to unspecified organism Chronic kidney disease, stage 3b N18.32 Hypertension I10 Parkinsonism G20 Severe protein-calorie malnutrition E43 Pressure injury of sacral region, unstageable L89.150 (3) Pneumonia Laterality: left Lung location: lower lobe of lung Pneumonia type: due to unspecified organism Qualified Code(s): J18.9 - Pneumonia, unspecified organism
[2025-02-11] MEDS: predniSONE 10 MG TABLET PO SCH (19:44)
--- NOTE | 2025-02-12 15:23 | Hospitalist Progress Note ---
Date of Service February 12, 2025 Assessment & Plan (1) History of CVA (cerebrovascular accident): Plan: With resultant dense right hemiplegia. It appears his elderly is unable to provide adequate care for him at home. Palliative care consultation appreciated. The [facility] since she does not want OT and PT services and this precludes transfer to an SNF facility. (2) Debilitated: Plan: Right hemiplegia due to recent CVA. Supportive care. OT and PT have been discontinued per 's request (3) Pneumonia: Plan: Suspected aspiration of gastric contents on a recurrent basis. He currently has a combination of aspiration pneumonitis and aspiration pneumonia. Unasyn and methylprednisolone have been switched to oral Augmentin and oral prednisone. Prednisone has been tapered down to twice daily dosing on December 12. It will be tapered down to 10 mg once daily on December 14 ongoing for 2 days then stop. (4) Chronic kidney disease, stage 3b: Plan: Stable. Monitor intake and output. Serial labs (5) Hypertension: Plan: Stable. Continue current medical management (6) Parkinsonism: Plan: Stable. Continue current medical management (7) Severe protein-calorie malnutrition: Plan: Per [place] criteria. Oral intake has been emphasized (8) Pressure injury of sacral region, unstageable: Plan: Local care. Patient states he is offloading his sacrum on a regular basis Plan Anticipate discharge to [facility] in [place] on ThursdayFebruary 13 Admission and Anticipated Discharge Date Admission Date: February 05, 2025 Subjective No new problems. Alert and stable. is at the bedside Review of Systems 2 Review of Systems: Constitutionalno fever or chills ENTno blurred vision, no double vision, no epistaxis, no sore throat Respiratoryno cough, no wheezing, no shortness of breath Cardiacno palpitations, no chest pain, no syncope Kat nausea, vomiting, diarrhea, melena, hematochezia GUno urinary retention, no urinary incontinence, no dysuria, no hematuria Musculoskeletalno joint pain, no muscle tenderness Skinno bruising, no rashes, no pruritus Neurodense right hemiplegia from recent CVA Psychflat affect Physical Exam 2 Physical Exam: General-alert and oriented x3, no fever, no chills HEENT-head atraumatic and normocephalic, pupils equal and reactive to light, extraocular muscles intact Neck-no lymphadenopathy or thyromegaly, trachea midline Chest-scattered bilateral rhonchi. No wheezing. No inspiratory rales. Cardiac-regular rate and rhythm, normal S1 and S2 Abdomen-normal bowel sounds, no hepatosplenomegaly Extremities-no cyanosis, clubbing, or edema Neuro-cranial nerves II through XII intact, dense right hemiplegia from recent CVA. Psych-flat affect Results & Data Results & Data Vital Signs (Past 12 Hours) Vital Signs Temp Pulse Resp BP Pulse Ox O2 Del Method 02/12/25 15:16 36.3 C L 58 L 18 124/78 95 Room Air 02/12/25 09:00 Room Air 02/12/25 08:00 36.6 C 58 L 16 156/85 H 95 Room Air Laboratory Results 02/09/25 06:52 02/09/25 06:52 PG Care Time/CCT Total # of Minutes Spent Total Time Spent with Patient: Total time spent is greater than 50% in coordination of care (as documented) at patient's floor/unit and/or counseling patient: Coding Level of Care Code 54761 SUB INP/OBS CARE 2/35MIN Diagnoses History of CVA (cerebrovascular accident) Z86.73 Debilitated R53.81 Pneumonia J18.9 Laterality: left Lung location: lower lobe of lung Pneumonia type: due to unspecified organism Chronic kidney disease, stage 3b N18.32 Hypertension I10 Parkinsonism G20 Severe protein-calorie malnutrition E43 Pressure injury of sacral region, unstageable L89.150 (3) Pneumonia Laterality: left Lung location: lower lobe of lung Pneumonia type: due to unspecified organism Qualified Code(s): J18.9 - Pneumonia, unspecified organism
[2025-02-13 15:18] VITALS: BP 122/69; PULSE 76; RESP 16; TEMP 97.8; O2SAT 97
--- NOTE | 2025-02-13 15:28 | Discharge Summary ---
Discharge Summary Date of Service February 13, 2025 Principal Dx & Hospital Course #1 = Principal Diagnosis (1) History of CVA (cerebrovascular accident): (2) Pneumonia: (3) Failure to thrive in adult: (4) Stage 3b chronic kidney disease: (5) Hypertension: (6) Parkinsonism: (7) Severe protein-calorie malnutrition: (8) Pressure injury of sacral region, unstageable: Plan 84 y/o M with a PMH of HTN, dyslipidemia, CAD, stage 3b CKD, Parkinsonism, IPMN, anemia, BPH, cervical radiculopathy, osteoporosis, vitamin D & B12 deficiency, anxiety and depression, prior CVA, and severe protein calorie malnutrition. He presented with several days of increased chest congestion and cough, shortness of breath, generalized weakness. Palliative care was consulted this hospitalization and decision was made to transition to hospice services on discharge. #History of CVA With resultant dense right hemiplegia. It appears his elderly is unable to provide adequate care for him at home. Palliative care consultation appreciated. The is going to pursue placement at personal-care since she does not want OT and PT services and this precludes transfer to an SNF facility. #Pneumonia Suspected aspiration of gastric contents on a recurrent basis. He currently has a combination of aspiration pneumonitis and aspiration pneumonia. Unasyn and methylprednisolone have been switched to oral Augmentin and oral prednisone. Completed course of antibiotics prior to discharge. Prednisone has been tapered down to 10 mg once daily 02/13 ongoing for 2 days then stop. #Failure to thrive in adult / Severe protein calorie malnutrition Right hemiplegia due to recent CVA. Supportive care. OT and PT have been discontinued per 's request Per [place] criteria. Oral intake has been emphasized #CKD, stage IIIb Stable. Continue current medical management #Hypertension Stable. Continue current medical management #Parkinsonism Stable. Continue current medical management #Pressure injury of sacral region Local care. Patient states he is offloading his sacrum on a regular basis Dispo: Discharged to [facility] with hospice services 02/13 Notes For Next Care Provider Transitioned to hospice services on discharge. Home medication regimen continued per request of /patient Medication Changes From Visit Prednisone 10 mg x 1 on 02/14 to complete steroid taper Admission HPI Per Admitting Provider Patient is an 84-year-old male with a history of previous CVA. Presents with several days of increased chest congestion and cough. He has felt short of breath, especially at night. He has been weak. Today, the cough seemed worse and he was brought by ambulance for evaluation. He coughs a lot when he tries to drink. There has been no fever. No vomiting or diarrhea, no chest pain. He has had some recent exposure to others but no one that was known to be sick. He denies underlying lung disease. Patient had a stroke in November which caused him right hemiplegic after acute stroke patient went for 3 weeks to [facility] at acute rehab and from there he was discharged to home. Patient's is 84 years old and she has been in significant emotional and psychological and physical distress because of inability to take care of him. She is wondering if there is some sort of help to transfer patient to a [facility] facility. I see that patient has failure to thrive with a BMI of 18.3 and he is aspirating when I asked the patient who is awake and alert and oriented about his decline after his stroke and his overall prognosis appears to be very guarded he was very clear that if his quality of life is not going to be great he wants to be DNR and DNI Discharge Exam General: No acute distress, nondiaphoretic, chronically ill appearing frail male. Flat affect. Cardiac: Regular rate and rhythm without murmurs gallops or rubs. Pulm: Scattered rhonchi bilaterally. No wheezing noted. Normal respiratory effort. 97% on room air. Neuro: A&O x3. No focal neurological deficits. Discharge Plan Discharge Items Patient Disposition: Hospice - Medical Facility Reason For Visit: FAILURE TO THRIVE Discharge Diagnosis: Suspected aspiration pneumonia Failure to thrive Condition on Discharge: Fair Activity: Resume your previous activity Non-emergency contact: Primary Care Provider, Specialist and Viscosity Worker Call non-emergency contact if: you have any medication questions, your symptoms worsen and your pain is not controlled Follow-up/Referrals: Balta Miller DO [Primary Care Provider] - (Follow-up in 1-2 weeks) Diet: Regular Diet Texture: Dental soft (bite-sized) Addtl Attending Provider Instructions: FOR [facility]/HOSPICE: Mr. Alexander was admitted to the hospital due to failure to thrive. He was treated for suspected aspiration pneumonia during this hospitalization and has completed his course of antibiotics. He was treated with steroids and will complete his steroid taper with 10 mg Prednisone PO x 1 tomorrow, 02/14/2025. He was evaluated by Palliative Care this hospitalization, and the decision was ultimately made to transition to hospice services on discharge. Per his , he is to remain on his home medications for now. These have been sent to [facility]. Hospice services and needed supplies have been arranged on discharge. Pending Studies at Discharge: No Stand-Alone Forms: My [facility] Skilled Items Patient informed of condition?: Yes DNR: Yes Discharge Level of Care: Other Communicable Disease: No Discharge Prognosis: Stable Lines: None Urinary Catheter: No Medications and DC Order Prescriptions: New atorvastatin 40 mg Tablet 40 mg PO DAILY Qty: 30 0RF acetaminophen 325 mg Tablet 650 mg PO Q6H PRN (Reason: fever or pain) Qty: 30 0RF aspirin 81 mg Tablet,Delayed Release (Dr/Ec) 81 mg PO DAILY Qty: 30 0RF quetiapine 25 mg Tablet 50 mg PO DAILY Qty: 60 0RF buspirone 5 mg Tablet 5 mg PO BID Qty: 60 0RF citalopram 20 mg Tablet 20 mg PO BID Qty: 60 0RF brimonidine 0.2 % Drops 1 drp ophthalmic (eye) BID Qty: 5 0RF carbidopa-levodopa [Sinemet] 25-100 mg Tablet 1 tab PO TID Qty: 90 0RF timolol maleate 0.5 % Drops, Once Daily 1 drp ophthalmic (eye) BID Qty: 2.5 0RF travoprost 0.004 % Drops 1 drp OPB HS Qty: 2.5 0RF docusate sodium 100 mg Capsule 100 mg PO BID Qty: 60 0RF polyethylene glycol 3350 [Miralax] 17 gram Powder In Packet 17 g PO DAILY PRN (Reason: constipation) Qty: 30 0RF melatonin 3 mg Tablet 3 mg PO HS PRN (Reason: sleep) Qty: 30 0RF prednisone 10 mg tablet 10 mg PO DIRECTED Qty: 1 0RF Rx Instructions: see taper instructions: Take 10 mg (1 tablet) on 02/14/2025 to complete your steroid taper. ondansetron 4 mg tablet,disintegrating 4 mg PO Q6H PRN (Reason: nausea and vomiting) Qty: 30 0RF Discontinued atorvastatin 40 mg tablet 40 mg PO DAILY Qty: 90 3RF citalopram [Celexa] 20 mg tablet 20 mg PO BID Rx Instructions: ADJUSTING DOSE UP TO 40MG INSTRUCTED Travatan Z 0.004 % drops 1 drp OPB HS Rx Instructions: both eyes aspirin 81 mg tablet,delayed release (DR/EC) 81 mg PO DAILY buspirone 5 mg tablet 5 mg PO BID quetiapine [Seroquel] 25 mg tablet 50 mg PO DAILY docusate sodium 100 mg Capsule 100 mg PO BID carbidopa-levodopa 25-100 mg tablet 1 tab PO TID brimonidine-timolol [Combigan] 0.2-0.5 % drops 1 drp OPB [facility] Discharge Orders: Discharge Order (Routine); Ordered 02/13/25 Ordered By: Masha Melendrez Admission Data Admit Date/Time: 02/05/25 11:30 Attending Provider: Masha Welsh Admit Provider: Brittney Garcia Primary Care Provider: Balta Miller Other Providers: Brittney Garcia; Shanna Barreto; [facility] Hospital Stay Data Consultations 02/05/25 10:48 ED Decision to Admit Stat 02/06/25 12:43 Consult Palliative Care Routine Diagnostic Imagining Performed Chest X-Ray 02/05/25 08:38 XR chest 1V portable CLINICAL HISTORY: Dyspnea COMPARISON STUDY: 11/11/2016 FINDINGS: Heart size and pulmonary vasculature are normal. No effusion, consolidation, or pneumothorax. IMPRESSION: No acute findings. ACT 112: Negative or not required by law. Electronically signed by: Jorge Reed M.D. 02/05/2025 9:11 AM Pending Results Patient Have Any Pending Studies at Discharge: No Discharge Instructions Given to Patient (Per Discharging Provider) FOR [facility]OSPICE: Mr. Alexander was admitted to the hospital due to failure to thrive. He was treated for suspected aspiration pneumonia during this hospitalization and has completed his course of antibiotics. He was treated with steroids and will complete his steroid taper with 10 mg Prednisone PO x 1 tomorrow, 02/14/2025. He was evaluated by Palliative Care this hospitalization, and the decision was ultimately made to transition to hospice services on discharge. Per his , he is to remain on his home medications for now. These have been sent to [facility]. Hospice services and needed supplies have been arranged on discharge. Total Time Total Time Spent Total Time Spent (In Minutes): Greater than 30 minutes spent completing this discharge process including direct patient care, medication reconciliation, documentation, review of labs and images, and coordination of care. Coding Level of Care Code 94816 INP/OBS DISCH >30 MIN Diagnoses History of CVA (cerebrovascular accident) Z86.73 Pneumonia J18.9 Laterality: left Lung location: lower lobe of lung Pneumonia type: due to unspecified organism Failure to thrive in adult R62.7 Stage 3b chronic kidney disease N18.32 Hypertension I10 Parkinsonism G20 Severe protein-calorie malnutrition E43 Pressure injury of sacral region, unstageable L89.150
== END 2025-02-13 16:02 | disposition hospice, inpatient (51) | DRG 177 ==
LOC: ED 08:33 → SUATTDRO 11:30 → EDINP 11:30 → 3W 14:15
DX: R62.7 Adult failure to thrive; F41.9 Anxiety disorder, unspecified; I69.351 Hemiplegia and hemiparesis following cerebral infarction affecting right dominant side; Z79.899 Other long term (current) drug therapy; Z66 Do not resuscitate; E43 Unspecified severe protein-calorie malnutrition; I25.10 Atherosclerotic heart disease of native coronary artery without angina pectoris; L89.150 Pressure ulcer of sacral region, unstageable; Z88.8 Allergy status to other drugs, medicaments and biological substances; Z68.1 Body mass index [BMI] 19.9 or less, adult; F32.A Depression, unspecified; G20.A1 Parkinson's disease without dyskinesia, without mention of fluctuations; I25.2 Old myocardial infarction; E78.5 Hyperlipidemia, unspecified; Z51.5 Encounter for palliative care; J69.0 Pneumonitis due to inhalation of food and vomit; I12.9 Hypertensive chronic kidney disease with stage 1 through stage 4 chronic kidney disease, or unspecified chronic kidney disease; Z79.82 Long term (current) use of aspirin; N18.32 Chronic kidney disease, stage 3b; I08.0 Rheumatic disorders of both mitral and aortic valves